=== PATIENT | female | born 1960 | race Caucasian/White ===

== ENCOUNTER 2017-10-28 06:33 | Day surgery (SDC) | payer OTHER ==
[~2017-10-28] VITALS: Ht 172.7 cm; Wt 152.9 kg
[~2017-10-28 06:33] MED LIST: ACETAM PO; ALBU90I INH; ALBU90OI; ALBU90OI INH; ALBU90OI61 INH; AMIT25; AMLO10 PO; AMOX1XR PO; ASPI325 PO; ASPI81EC; ATEN50; ATEN50 PO; ATOR10; ATOR20 PO; ATOR40TA PO; AZIT250 PO; AZIT500 PO; BUTONI; CAPT50; CARB200; CARI350; CIPR250 PO; CITA20; CLON.2 PO; CLONIDINE HCL0.1 MG PO; CRUTCH4 USE; CYCL10; CYCL10 PO; DIAZ10; DIAZ10 PO; DICY20; DIPH50; DOCU100 PO; DULO60 PO; ERGO400; ESOM20; ESTR1 PO; FISH1000 PO; FLUO20; FLUSAL2505; FLUSAL2505 IH; FLUT.05NI; FURO20 PO; FUROSEMIDE PO; Flax Seed Oil PO; Flonase 0.05% N16 GM; Flovent Diskus50 MCG; Furosemide20 MG PO; GUAPHELA PO; Guaifenesin Dm118 ML PO; HYDACE10B; HYDACE5; HYDACE5 PO; HYDCHL25 PO; HYDMOR4; HYDMOR4 PO; HYDMOR8; HYDMOR8 PO; Humalog100 UNIT/1 SC; IBUHYD; IBUHYD PO; IBUP800 PO; INSLE100IA; INSLI100I SC; INSULANI; INSULANI SC; INSULANPEN SC; Imitrex100 MG PO; Inderal80 MG PO; KETO10 PO; LACT10SY PO; LANS30EC; LEVSOD125 PO; LEVSOD150 PO; LEVSOD50; LEVSOD50 PO; LISI10; LISI20; LISI20 PO; LORATADINE PO; LOSA50 PO; LOVA20; LOVA40; LOVA40 PO; META800 PO; METF500; METF500 PO; METF500C; METF850 PO; METH10; METH10 PO; METH40 PO; MIRALAX; MONT10T; MULVITA; Micro-K10 MEQ PO; NAPR375 PO; NAPR550 PO; NARA2.5 PO; OMEP10ER; OMEP20ER PO; OMEP40CA12 PO; OXYACE10 PO; OXYACE5T PO; OXYACE7.5T PO; OXYC20ER; OXYCODONE PO; Omeprazole20 M1 PO; PARO20 PO; PARO30 PO; PERCOCET PO; PIOG15; POLY17UD; POTCHL10ER PO; PROBIOTIC1 EAC1 PO; PROM25; PROM25 PO; PROP120ER PO; PROP60; PROP80ER PO; RANI150 PO; SELENIUM PO; ST JOHNS WORT; SULTRIDS PO; SUMA25 PO; Solaraze100 GM TOP; TOPI100 PO; TRAZ100; TRAZ100 PO; TRAZ50; TRAZADONE 150MG; VENL75ER; VERA80; VITAMIN B; VITAMIN B-12 PO; VITAMIN D35000 UNIT PO; VITAMIN E; Ventolin5 MG/1 ML NEB; ZESTRIL40 MG PO; [UNRECOGNIZED DRUG - OTHER]; [UNRECOGNIZED DRUG - REMARK]
== END 2017-10-28 10:31 | disposition home or self-care (01) ==
LOC: ORSCMMR 06:33
PROVIDERS: Surgery
PROC: 0HBU0ZZ Excision of Left Breast, Open Approach (ICD-10-PCS; principal; 2017-10-28 08:15)
DX: N63.21 Unspecified lump in the left breast, upper outer quadrant (principal); N64.4 Mastodynia; I10 Essential (primary) hypertension; G47.33 Obstructive sleep apnea (adult) (pediatric); J45.909 Unspecified asthma, uncomplicated; E11.9 Type 2 diabetes mellitus without complications; E66.01 Morbid (severe) obesity due to excess calories; Z68.43 Body mass index [BMI] 50.0-59.9, adult; Z79.4 Long term (current) use of insulin; Z79.899 Other long term (current) drug therapy; Z79.82 Long term (current) use of aspirin; Z86.73 Personal history of transient ischemic attack (TIA), and cerebral infarction without residual deficits
CPT/HCPCS: 82947; 88304; J0690; J2250; J3010; J7120

== ENCOUNTER 2018-02-10 16:10 | Observation (INO) | payer OTHER ==
[~2018-02-10] VITALS: Ht 172.7 cm; Wt 151.4 kg
[2018-02-10] MEDS ORDERED: TRAM50 PO (16:32)
[2018-02-10] MEDS ORDERED: Hydrocodone-Ap1 EA23 PO (16:32)
[2018-02-10 17:28] LABS: BASOPHILS ABSOLUTE AUTO 0.01 K/mm3 (0.00-0.23); BASOPHILS PERCENT AUTO 0 % (0-2); EOSINOPHILS ABSOLUTE AUTO 0.13 K/mm3 (0.00-0.68); EOSINOPHILS PERCENT AUTO 2 % (0-6); Hematocrit 39.2 % (33.0-51.0); Hemoglobin 12.2 g/dL (11.5-16.0); IMMATURE GRAN ABSOLUTE AUTO 0.05 K/mm3 (0.00-0.10); IMMATURE GRAN PERCENT AUTO 1 % (0-1); LYMPHOCYTES ABSOLUTE AUTO 1.64 K/mm3 (0.84-5.20); LYMPHOCYTES PERCENT AUTO 23 % (21-46); MONOCYTES ABSOLUTE AUTO 0.41 K/mm3 (0.16-1.47); MONOCYTES PERCENT AUTO 6 % (4-13); Mean Corpuscular HGB 27.9 pg (26.0-34.0); Mean Corpuscular HGB Conc 31.1 g/dL (31.5-36.5); Mean Corpuscular Volume 90 fL (80-100); Mean Platelet Volume 11.3 fL (9.1-12.4); NEUTROPHILS ABSOLUTE AUTO 4.89 K/mm3 (1.96-9.15); NEUTROPHILS PERCENT AUTO 69 % (41-73); Platelet Count 202 K/mm3 (150-400); RDW Standard Deviation 46.1 fL (35.1-46.3); Red Blood Cell Count 4.37 M/mm3 (3.80-5.20); White Blood Cell Count 7.13 K/mm3 (4.00-11.30)
[2018-02-10 17:46] LABS: Alanine Aminotransfer (ALT/SGP 15 U/L (12-78); Albumin, Blood 3.6 g/dL (3.4-5.0); Albumin/Globulin Ratio 1.1 (0.8-1.8); Alk Phos 133 U/L (50-136); Anion Gap 6 mmol/L (6-16); Aspartate Aminotrans (AST/SGOT 13 U/L (12-37); Bilirubin, Total 0.3 mg/dL (0.1-1.0); Blood Urea Nitrogen 27 mg/dL (8-24); Bun/Creatinine Ratio 35.2 (12.0-20.0); CO2, Blood 26 mmol/L (21-32); Calcium, Blood 9.2 mg/dL (8.5-10.1); Chloride, Blood 109 mmol/L (98-108); Creatinine, Blood 0.77 mg/dL (0.40-1.00); Globulin, Blood 3.3 g/dL (2.2-4.0); Glomerular Filtration Rate >60 (60-); Glucose, Blood 234 mg/dL (70-99); Potassium, Blood 4.4 mmol/L (3.5-5.5); Sodium, Blood 141 mmol/L (136-145); Total Protein, Blood 6.9 g/dL (6.4-8.2)
[2018-02-11 04:30] LABS: BASOPHILS ABSOLUTE AUTO 0.02 K/mm3 (0.00-0.23); BASOPHILS PERCENT AUTO 0 % (0-2); EOSINOPHILS ABSOLUTE AUTO 0.16 K/mm3 (0.00-0.68); EOSINOPHILS PERCENT AUTO 2 % (0-6); Hematocrit 38.5 % (33.0-51.0); Hemoglobin 12.2 g/dL (11.5-16.0); IMMATURE GRAN ABSOLUTE AUTO 0.04 K/mm3 (0.00-0.10); IMMATURE GRAN PERCENT AUTO 1 % (0-1); LYMPHOCYTES ABSOLUTE AUTO 2.27 K/mm3 (0.84-5.20); LYMPHOCYTES PERCENT AUTO 30 % (21-46); MONOCYTES ABSOLUTE AUTO 0.47 K/mm3 (0.16-1.47); MONOCYTES PERCENT AUTO 6 % (4-13); Mean Corpuscular HGB 28.3 pg (26.0-34.0); Mean Corpuscular HGB Conc 31.7 g/dL (31.5-36.5); Mean Corpuscular Volume 89 fL (80-100); Mean Platelet Volume 10.7 fL (9.1-12.4); NEUTROPHILS ABSOLUTE AUTO 4.58 K/mm3 (1.96-9.15); NEUTROPHILS PERCENT AUTO 61 % (41-73); Platelet Count 195 K/mm3 (150-400); RDW Standard Deviation 45.7 fL (35.1-46.3); Red Blood Cell Count 4.31 M/mm3 (3.80-5.20); White Blood Cell Count 7.54 K/mm3 (4.00-11.30)
[2018-02-11 04:45] LABS: Anion Gap 7 mmol/L (6-16); Blood Urea Nitrogen 24 mg/dL (8-24); Bun/Creatinine Ratio 31.4 (12.0-20.0); CO2, Blood 25 mmol/L (21-32); Calcium, Blood 9.1 mg/dL (8.5-10.1); Chloride, Blood 113 mmol/L (98-108); Creatinine, Blood 0.76 mg/dL (0.40-1.00); Glomerular Filtration Rate >60 (60-); Glucose, Blood 98 mg/dL (70-99); Potassium, Blood 3.9 mmol/L (3.5-5.5); Sodium, Blood 145 mmol/L (136-145)
[2018-02-12] MEDS ORDERED: CULTURELLE1 EACH PO (11:49)
[2018-02-12] MEDS ORDERED: FLONASE SENSIM9.9 ML (11:49)
[2018-02-12] MEDS ORDERED: ALBU90OI INH (11:50)
[2018-02-12] MEDS ORDERED: Augmentin 875-1 EACH PO (11:52)
== END 2018-02-12 13:23 | disposition home or self-care (01) ==
LOC: ER 16:10 → MEDS 16:11 → ENPENDDIS 02-12 09:24 → MEDS 02-12 13:23
PROVIDERS: Nurse Practitioner Acute Care; Physician Assistant
DX: S61.451A Open bite of right hand, initial encounter (principal); L03.113 Cellulitis of right upper limb; I10 Essential (primary) hypertension; E03.9 Hypothyroidism, unspecified; E11.9 Type 2 diabetes mellitus without complications; G47.33 Obstructive sleep apnea (adult) (pediatric); M19.90 Unspecified osteoarthritis, unspecified site; J45.30 Mild persistent asthma, uncomplicated; E78.00 Pure hypercholesterolemia, unspecified; K21.9 Gastro-esophageal reflux disease without esophagitis; Z79.01 Long term (current) use of anticoagulants; Z79.2 Long term (current) use of antibiotics; Z79.899 Other long term (current) drug therapy; Z88.8 Allergy status to other drugs, medicaments and biological substances; Z91.048 Other nonmedicinal substance allergy status; Z88.5 Allergy status to narcotic agent; W55.01XA Bitten by cat, initial encounter
CPT/HCPCS: 36415; 73201; 80048; 80053; 82947; 85025; 85651; 94760; 96361; 96365; 96366; 96367; 96368; 96372; 96375; 96376; 99285; G0378; J0295; J0696; J1650; J1815; J1885; J3370; J7030; J7050; Q9967

== ENCOUNTER → 2019-02-03 | Outpatient (CLI) | payer OTHER ==
[~2019-02-03] MED LIST changes: +Augmentin 875-1 EACH PO; +CULTURELLE1 EACH PO; +FLONASE SENSIM9.9 ML; +Hydrocodone-Ap1 EA23 PO; +TRAM50 PO
== END ==
LOC: LAB SHORT 16:25 → LAB 16:25
DX: L08.9 Local infection of the skin and subcutaneous tissue, unspecified (principal); L82.1 Other seborrheic keratosis; D22.5 Melanocytic nevi of trunk; L97.829 Non-pressure chronic ulcer of other part of left lower leg with unspecified severity
CPT/HCPCS: 87070; 87205

== ENCOUNTER → 2019-03-02 | Outpatient (CLI) | payer OTHER | END | disposition home or self-care (01) | LOC: LAB 17:50 → LAB SHORT 17:50 | DX: N39.0 Urinary tract infection, site not specified (principal) | CPT/HCPCS: 87077; 87086; 87186 ==

== ENCOUNTER 2019-03-12 17:40 | Emergency (ER) | payer OTHER ==
[~2019-03-12] VITALS: Ht 172.7 cm; Wt 154.2 kg
[~2019-03-12 17:40] MED LIST changes: -FLONASE SENSIM9.9 ML; +LEVSOD100 PO; -LEVSOD50 PO
[2019-03-12 18:50] LABS: Source, Urine Clean Catch
[2019-03-12 18:53] LABS: Appearance, Urine Clear (Clear); Blood, Urine 1+ (Neg); Color, Urine Amber (P-Yellow); Glucose Qualitative, Urine 3+ (Neg); Ketones, Urine 2+ (Neg); Leukocyte Esterase, Urine 3+ (Neg); Nitrite, Urine Neg (Neg); Protein, Urine 2+ (Neg); Specific Gravity, Urine 1.015 (1.003-1.022); Urobilinogen, Urine 1+ (Normal)
[2019-03-12 18:56] LABS: Bilirubin, Urine 1+ (Neg)
[2019-03-12 18:59] LABS: BASOPHILS ABSOLUTE AUTO 0.04 K/mm3 (0.00-0.23); BASOPHILS PERCENT AUTO 0 % (0-2); EOSINOPHILS ABSOLUTE AUTO 0.01 K/mm3 (0.00-0.68); EOSINOPHILS PERCENT AUTO 0 % (0-6); Hematocrit 41.3 % (33.0-51.0); IMMATURE GRAN ABSOLUTE AUTO 0.21 K/mm3 (0.00-0.10); IMMATURE GRAN PERCENT AUTO 1 % (0-1); LYMPHOCYTES ABSOLUTE AUTO 0.92 K/mm3 (0.84-5.20); LYMPHOCYTES PERCENT AUTO 5 % (21-46); MONOCYTES ABSOLUTE AUTO 0.58 K/mm3 (0.16-1.47); MONOCYTES PERCENT AUTO 3 % (4-13); Mean Corpuscular HGB 27.5 pg (26.0-34.0); Mean Corpuscular HGB Conc 31.5 g/dL (31.5-36.5); Mean Corpuscular Volume 88 fL (80-100); Mean Platelet Volume 11.2 fL (9.1-12.4); NEUTROPHILS ABSOLUTE AUTO 17.36 K/mm3 (1.96-9.15); NEUTROPHILS PERCENT AUTO 91 % (41-73); Platelet Count 299 K/mm3 (150-400); RDW Coefficient Variation 13.4 % (11.7-14.2); RDW Standard Deviation 43.9 fL (35.1-46.3); Red Blood Cell Count 4.72 M/mm3 (3.80-5.20); White Blood Cell Count 19.12 K/mm3 (4.00-11.30)
[2019-03-12 19:04] LABS: Bacteria Many /hpf; Red Blood Cells, Urine 0-2 /hpf (0-2); Squamous Epithelial Cells Many /hpf (Few); White Blood Cells, Urine 50-100 /hpf (0-5)
[2019-03-12 19:05] LABS: Hyaline Casts 0-2 /lpf (0-2)
[2019-03-12 19:23] LABS: Albumin, Blood 3.2 g/dL (3.4-5.0); Albumin/Globulin Ratio 0.6 (0.8-1.8); Bilirubin, Total 0.7 mg/dL (0.1-1.0); Bun/Creatinine Ratio 14.8 (12.0-20.0); Calcium, Blood 10.1 mg/dL (8.5-10.1); Creatinine, Blood 1.28 mg/dL (0.40-1.00); Potassium, Blood 3.5 mmol/L (3.5-5.5); Total Protein, Blood 8.2 g/dL (6.4-8.2)
[2019-03-12] MEDS ORDERED: CYCL10 PO (20:19)
[2019-03-12] MEDS ORDERED: CEFU500T30 PO (20:46)
== END 2019-03-12 21:12 | disposition home or self-care (01) ==
LOC: ER 17:40
PROVIDERS: Physician Assistant
DX: N20.0 Calculus of kidney (principal); Z88.8 Allergy status to other drugs, medicaments and biological substances; Z91.048 Other nonmedicinal substance allergy status; Z88.5 Allergy status to narcotic agent; Z79.899 Other long term (current) drug therapy; Z79.891 Long term (current) use of opiate analgesic; Z79.4 Long term (current) use of insulin; E11.9 Type 2 diabetes mellitus without complications; E03.9 Hypothyroidism, unspecified; K21.9 Gastro-esophageal reflux disease without esophagitis; E78.00 Pure hypercholesterolemia, unspecified; G43.909 Migraine, unspecified, not intractable, without status migrainosus; Z87.891 Personal history of nicotine dependence
CPT/HCPCS: 36415; 74176; 80053; 81001; 85025; 87077; 87086; 87186; 96361; 96365; 96375; 99284-25; J0696; J1885; J7030

== ENCOUNTER → 2019-03-31 | Outpatient (CLI) | payer OTHER ==
[~2019-03-31] MED LIST changes: +CEFU500T30 PO
== END | disposition home or self-care (01) ==
LOC: LAB UCHC 15:00 → LAB SHORT 15:00
DX: N39.0 Urinary tract infection, site not specified (principal)
CPT/HCPCS: 87077; 87086; 87186

== ENCOUNTER → 2019-06-21 | Outpatient (CLI) | payer OTHER ==
[2019-06-21 13:05] LABS: Source, Urine Clean Catch
[2019-06-21 13:40] LABS: Bilirubin, Urine Neg (Neg); Blood, Urine Neg (Neg); Glucose Qualitative, Urine 4+ (Neg); Ketones, Urine 1+ (Neg); Leukocyte Esterase, Urine Neg (Neg); Nitrite, Urine Neg (Neg); Protein, Urine Neg (Neg); Urobilinogen, Urine NORM (Normal)
[2019-06-21 14:00] LABS: Appearance, Urine Clear (Clear); Color, Urine Yellow (P-Yellow)
== END ==
LOC: LAB SHORT 10:15 → LAB 10:15
PROVIDERS: Nurse Practitioner Family
DX: N20.0 Calculus of kidney (principal)
CPT/HCPCS: 81003

== ENCOUNTER → 2019-11-29 | Outpatient (CLI) | payer OTHER ==
[2019-11-29 19:42] LABS: Bilirubin, Urine Neg (Neg); Blood, Urine Neg (Neg); Glucose Qualitative, Urine 3+ (Neg); Ketones, Urine Neg (Neg); Leukocyte Esterase, Urine Neg (Neg); Nitrite, Urine Neg (Neg); Protein, Urine Neg (Neg); Urobilinogen, Urine NORM (Normal)
[2019-11-29 20:02] LABS: Appearance, Urine Clear (Clear); Color, Urine Pale Yellow (P-Yellow)
== END | disposition home or self-care (01) ==
LOC: LAB 19:02 → LAB SHORT 19:02 → LAB FUT 11-29 17:25
PROVIDERS: Family Medicine
DX: Z09 Encounter for follow-up examination after completed treatment for conditions other than malignant neoplasm (principal); Z87.442 Personal history of urinary calculi
CPT/HCPCS: 81003

== ENCOUNTER → 2020-01-11 | Outpatient (CLI) | payer OTHER | END | disposition home or self-care (01) | LOC: LAB 17:50 → LAB SHORT 17:50 | DX: R30.9 Painful micturition, unspecified (principal) | CPT/HCPCS: 87077; 87086; 87186 ==

== ENCOUNTER 2022-01-11 11:58 | Inpatient (IN) | payer OTHER ==
[~2022-01-11] VITALS: Ht 172.7 cm; Wt 122.0 kg
[~2022-01-11 11:58] MED LIST changes: +AMOCLA875 PO; +CEPH500 PO; +FENOFIBRATE145 MG PO; +GABA100; +MELO7.5; +Magnesium Citr296 ML PO; +ONDA4ODT MM; +OXYC5 PO
[2022-01-11 12:59] LABS: Base Excess Venous -27.5 mmol/L; Bicarbonate Venous 7.5 mmol/L (24.0-30.0); PCO2 Venous 31.8 mmHg (38-42); PO2 Venous 69.1 mmHg (38-42); pH Blood Venous 6.87 (7.34-7.37)
[2022-01-11 13:00] LABS: Source, Urine Foley catheter
[2022-01-11 13:00] LABS: Hemoglobin 16.8 g/dL (11.5-16.0); Mean Corpuscular HGB 30.2 pg (26.0-34.0); Mean Corpuscular HGB Conc 29.5 g/dL (31.5-36.5); Mean Corpuscular Volume 103 fL (80-100); Mean Platelet Volume 12.9 fL (9.1-12.4); Platelet Count 172 K/mm3 (150-400); RDW Coefficient Variation 14.4 % (11.7-14.2); RDW Standard Deviation 55.3 fL (35.1-46.3); Red Blood Cell Count 5.56 M/mm3 (3.80-5.20); White Blood Cell Count 18.88 K/mm3 (4.00-11.30)
[2022-01-11 13:03] LABS: Appearance, Urine Clear (Clear); Bilirubin, Urine Neg (Neg); Blood, Urine 4+ (Neg); Color, Urine Yellow (P-Yellow); Glucose Qualitative, Urine 4+ (Neg); Ketones, Urine 4+ (Neg); Leukocyte Esterase, Urine Neg (Neg); Nitrite, Urine Neg (Neg); Protein, Urine 2+ (Neg); Urobilinogen, Urine NORM (Normal)
[2022-01-11 13:20] LABS: CPK Creatine Kinase 125 U/L (26-193); Ethanol (Alcohol), Blood, Med <3 mg/dL
[2022-01-11 13:22] LABS: Bacteria Rare /hpf; Red Blood Cells, Urine 0-2 /hpf (0-2); Squamous Epithelial Cells Rare /hpf (Few); White Blood Cells, Urine 0-2 /hpf (0-5)
[2022-01-11 13:23] LABS: U Amphetamine Screen Not Detected; U Barbituate Screen Not Detected; U Benzodiazapine Screen Not Detected; U Buprenorphine Screen Not Detected; U Cannabinoids Screen Not Detected; U Cocaine Screen Not Detected; U Methadone Screen Not Detected; U Methamphetamine Screen Not Detected; U Opiates Screen Not Detected; U Oxycodone Screen Not Detected; U Phencyclidine Screen Not Detected; U Propoxyphene Screen Not Detected
[2022-01-11 13:27] LABS: BAND PERCENT MAN 1 % (0-8); BASOPHILS PERCENT MAN 0 % (0-2); EOSINOPHILS PERCENT MAN 0 % (0-6); LYMPHOCYTES ABSOLUTE MAN 0.75 K/mm3 (0.84-5.20); LYMPHOCYTES PERCENT MAN 4 % (21-46); METAMYELOCYTE ABSOLUTE MAN 0.75 K/mm3 (0.00-0.00); METAMYELOCYTE PERCENT MAN 4 % (0-0); MONOCYTES ABSOLUTE MAN 0.94 K/mm3 (0.16-1.47); MONOCYTES PERCENT MAN 5 % (4-13); MYELOCYTE ABSOLUTE MAN 0.56 K/mm3 (0.00-0.00); MYELOCYTE PERCENT MAN 3 % (0-0); NEUTROPHILS ABSOLUTE MAN 15.85 K/mm3 (1.96-9.15); SEG NEUTROPHILS PERCENT MAN 83 % (41-73); TOTAL CELLS COUNTED 100
[2022-01-11 13:29] LABS: Alanine Aminotransfer (ALT/SGP 27 U/L (12-78); Albumin/Globulin Ratio 1.1 (0.8-1.8); Alk Phos 151 U/L (50-136); Anion Gap 23 mmol/L (6-16); Aspartate Aminotrans (AST/SGOT 23 U/L (12-37); Bilirubin, Total 0.7 mg/dL (0.1-1.0); Blood Urea Nitrogen 40 mg/dL (8-24); Bun/Creatinine Ratio 16.7 (12.0-20.0); CO2, Blood 7 mmol/L (21-32); Calcium, Blood 9.7 mg/dL (8.5-10.1); Chloride, Blood 93 mmol/L (98-108); Creatinine, Blood 2.39 mg/dL (0.40-1.00); Globulin, Blood 3.7 g/dL (2.2-4.0); Glomerular Filtration Rate 20 (60-); Glucose, Blood 1297 mg/dL (70-99); Potassium, Blood 4.6 mmol/L (3.5-5.5); Sodium, Blood 123 mmol/L (136-145); Total Protein, Blood 7.7 g/dL (6.4-8.2)
[2022-01-11 13:46] LABS: Influenza A, PCR NEGATIVE (NEGATIVE); Influenza B, PCR NEGATIVE (NEGATIVE); Resp Syncytial Virus, PCR NEGATIVE (NEGATIVE); SARS-Cov-2 (COVID-19) PCR, MMC NEGATIVE (NEGATIVE)
[2022-01-11 13:53] LABS: International Normalized Ratio 1.09; Prothrombin Time Results 11.4 Sec (9.7-11.5)
[2022-01-11 15:48] LABS: Glucose, Blood 1141 mg/dL (70-99)
[2022-01-11 16:32] LABS: Glucose, Blood 1017 mg/dL (70-99)
[2022-01-11 17:14] LABS: Prolactin 13.4 ng/mL (2.74-19.64)
[2022-01-11 17:17] LABS: Thyroid Stimulating Hormone 0.253 uIU/mL (0.360-4.800)
[2022-01-11 17:27] LABS: Bun/Creatinine Ratio 19.5 (12.0-20.0); Calcium, Blood 8.6 mg/dL (8.5-10.1); Potassium, Blood 3.4 mmol/L (3.5-5.5)
[2022-01-11 18:32] LABS: Glucose, Blood 661 mg/dL (70-99)
--- NOTE | 2022-01-11 18:46 | NUR ---
PATIETN ORIENTED TO SELF, AMS, LETHARGIC, CONFUSED AT TIMES. LS DIMINISHED, SLOW SHALLOW RESPIRATIONS, SATS 100%. AFIB 100-140S, SBP 100-160. NO N/V OR DIARREHA SINCE ON THE FLOOR. TEMP JOHNSON TO GRAVITY, COLOR YELLOW TO CALE, TEMP 94.8, BEAR HUGGER ON. SKIN LEFT HIP REDDEND AREA BLANCHES, BRUNILDA AREA AND COCCYX ESCORIATED. INSULIN AT 6U/HR, LAST BS 661
--- NOTE | 2022-01-11 19:30 | NUR ---
ASSUMPTION OF CARE PT ON ROOM AIR, LUNGS CLEAR W/SATS 99-100%. INSULIN GTT INFUSING AT 6U/HR TO LEFT FOREARM IV. PT ON TMR TEACHER IN AFIB RATE 100-120'S. DRY COUGH. LETHARGIC BUT ORIENTED TO NAME-AROUSES TO VERBAL STIMULI. TEMP JOHNSON 95.1, MANDI LEMONS ON PT. BP WNL. JOHNSON CATH INTACT PATENT AND DRAINING YELLOW URINE BELOW THE LEVEL OF THE BLADDER. NO S/S OF ACUTE DISTRESS NOTED AT TIME OF ASSUMPTION OF CARE.
--- NOTE | 2022-01-11 20:01 | NUR ---
PT BLOOD GLUCOSE IS TOO HIGH FOR BEDSIDE POC. SHE IS A DIFFICULT BLOOD DRAW, WAITING ON RESULTS FROM RECENT DRAW TO ADJUST INSULIN/FLUIDS.
[2022-01-11 20:04] LABS: Glucose, Blood 544 mg/dL (70-99)
[2022-01-11 20:10] LABS: Bun/Creatinine Ratio 19.6 (12.0-20.0); Calcium, Blood 9.6 mg/dL (8.5-10.1); Creatinine, Blood 1.94 mg/dL (0.40-1.00); Potassium, Blood 3.6 mmol/L (3.5-5.5)
--- NOTE | 2022-01-11 20:53 | NUR ---
PT BLOOD GLUCOSE 544 AT 1936 AND 454 AT 2046. DISCUSSED W/CHARGE NURSE YANETH MATHIS, INSULIN DRIP DECREASED FROM 6U/HR TO 5U/HR.
[2022-01-11] MEDS ORDERED: OMEP20ER PO (21:14)
[2022-01-11] MEDS ORDERED: MELO7.5 PO (21:14)
[2022-01-11] MEDS ORDERED: GABA400 PO (21:15)
[2022-01-11] MEDS ORDERED: TOLT4 PO (21:15)
--- NOTE | 2022-01-11 22:00 | NUR ---
PT NORMOTHERMIC. MANDI LEMONS ON STAND BY.
[2022-01-12 00:09] LABS: Bun/Creatinine Ratio 23.4 (12.0-20.0); Calcium, Blood 9.2 mg/dL (8.5-10.1); Creatinine, Blood 1.58 mg/dL (0.40-1.00); Potassium, Blood 3.4 mmol/L (3.5-5.5)
[2022-01-12 03:48] LABS: BASOPHILS ABSOLUTE AUTO 0.03 K/mm3 (0.00-0.23); BASOPHILS PERCENT AUTO 0 % (0-2); EOSINOPHILS PERCENT AUTO 0 % (0-6); Hematocrit 42.6 % (33.0-51.0); Hemoglobin 14.7 g/dL (11.5-16.0); IMMATURE GRAN ABSOLUTE AUTO 0.44 K/mm3 (0.00-0.10); IMMATURE GRAN PERCENT AUTO 3 % (0-1); LYMPHOCYTES ABSOLUTE AUTO 0.54 K/mm3 (0.84-5.20); LYMPHOCYTES PERCENT AUTO 4 % (21-46); MONOCYTES ABSOLUTE AUTO 1.25 K/mm3 (0.16-1.47); MONOCYTES PERCENT AUTO 9 % (4-13); Mean Corpuscular HGB 29.8 pg (26.0-34.0); Mean Corpuscular HGB Conc 34.5 g/dL (31.5-36.5); Mean Corpuscular Volume 86 fL (80-100); Mean Platelet Volume 12.2 fL (9.1-12.4); NEUTROPHILS PERCENT AUTO 84 % (41-73); Platelet Count 130 K/mm3 (150-400); RDW Coefficient Variation 14.3 % (11.7-14.2); RDW Standard Deviation 44.9 fL (35.1-46.3); Red Blood Cell Count 4.93 M/mm3 (3.80-5.20); White Blood Cell Count 14.36 K/mm3 (4.00-11.30)
[2022-01-12 03:58] LABS: Albumin, Blood 3.1 g/dL (3.4-5.0); Bilirubin, Total 0.4 mg/dL (0.1-1.0); Bun/Creatinine Ratio 26.5 (12.0-20.0); Calcium, Blood 9.4 mg/dL (8.5-10.1); Creatinine, Blood 1.36 mg/dL (0.40-1.00); Magnesium, Blood 1.8 mg/dL (1.6-2.4); Potassium, Blood 3.2 mmol/L (3.5-5.5); Total Protein, Blood 6.1 g/dL (6.4-8.2)
[2022-01-12 08:35] LABS: Bun/Creatinine Ratio 32.4 (12.0-20.0); Calcium, Blood 9.6 mg/dL (8.5-10.1); Creatinine, Blood 1.08 mg/dL (0.40-1.00); Potassium, Blood 3.1 mmol/L (3.5-5.5)
[2022-01-12 08:43] LABS: Free Thyroxine 1.28 ng/dL (0.70-1.60); Triiodothyronine, Free 1.39 pg/mL (2.18-3.98)
--- NOTE | 2022-01-12 10:00 | NUR ---
Patient sitting up in bed and eating breakfast. Will continue Regular insulin gtt at 5 units/hr for 1 hour. D5 1/2 is off now, CBG 199. Will give bath and get up in chair. Tolerated am meds.
--- NOTE | 2022-01-12 13:40 | NUR ---
Patient remains in chairand tolerating well. She remains on RA and sats >90%. She has been drinking water frequently and tolerating PO meds well. Awaiting PCU bed. Insulin gtt remains off. Wade patent and tellow urine of adequate amounts. She remains able to communicate her needs. She had headache and medicated pe DEC.
--- NOTE | 2022-01-12 15:59 | NUR ---
Report given to Jan DO. Patient transferred via recliner, all belongings transferred with patient. I&O's done. Sheri patent on transfer
[2022-01-12 16:14] LABS: Anion Gap 10 mmol/L (6-16); Blood Urea Nitrogen 30 mg/dL (8-24); Bun/Creatinine Ratio 35.5 (12.0-20.0); CO2, Blood 17 mmol/L (21-32); Calcium, Blood 9.5 mg/dL (8.5-10.1); Chloride, Blood 115 mmol/L (98-108); Creatinine, Blood 0.85 mg/dL (0.40-1.00); Glomerular Filtration Rate >60 (60-); Glucose, Blood 298 mg/dL (70-99); Potassium, Blood 4.1 mmol/L (3.5-5.5); Sodium, Blood 142 mmol/L (136-145)
--- NOTE | 2022-01-12 17:29 | NUR ---
END OF SHIFT: BEV HAS INCREASED MENTATION FROM THIS AM WHERE SHE WAS IN THE ICU. A&O X2-3, FORGETFUL AND SLOW TO RESPOND AT TIMES, POOR HISTORIAN. PATIENT IS ON RA SPO2 >97%. PULSE HAS BEEN 110-120'S ST WITH PAC'S. TELE IN PLACE. PATIENT IS MOST LIKELY INCONTINENT OF BOWEL AT THIS TIME, 2 ASSIST TO BSC RECOMMENDED DUE TO WEAKNESS. PATIENT IS AC HS CBG'S AND LAST CBG WAS 236. SS FOR HUMILIN HAS INCREASED RECENTLY, ADITIONALLY LR AT 100 WAS ORDERED BY PROVIDER, PATIENT HAS BEEN ABLE TO FEED, SELF, HAS JUST BEEN VERY MINIMALLY NAUSEATED AT TIMES. JOHNSON IN PLACE AT THIS TIME, CHEMICAL PROPHALAXIS FOR DVT PREVENTION, WILL CONTINUE TO MONITOR PATIENT. PATIENT OR THIS WRITTER HAS CONCERNS AT THIS TIME.
--- NOTE | 2022-01-13 01:00 | NUR ---
PHYSICIAN NOTIFIED PT REPORTS NAUSEA. PHYSICIAN NOTIFIED. ORDERS FOR REGLAN, SEE EMAR.
[2022-01-13 02:53] LABS: Adenovirus F 40/41 Not Detected (NOT DETECT); Astrovirus Not Detected (NOT DETECT); Campylobacter Sp Not Detected (NOT DETECT); Cryptosporidium Not Detected (NOT DETECT); Cyclospora Cayetanensis Not Detected (NOT DETECT); E. Coli O157 Not Detected (NOT DETECT); Entamoeba Histolytica Not Detected (NOT DETECT); Enteroaggregative E. coli-EAEC Not Detected (NOT DETECT); Enteropathogenic E. coli-EPEC Not Detected (NOT DETECT); Enterotoxigenic E. coli-ETEC Not Detected (NOT DETECT); Giardia Lamblia Not Detected (NOT DETECT); Norovirus GI/GII Not Detected (NOT DETECT); Plesiomonas Shigelloides Not Detected (NOT DETECT); Rotavirus A Not Detected (NOT DETECT); Salmonella Sp Not Detected (NOT DETECT); Sapovirus Not Detected (NOT DETECT); Shiga Toxin-prod E. coli-STEC Not Detected (NOT DETECT); Shigella/Enteroin E. coli-EIEC Not Detected (NOT DETECT); Vibrio Cholerae Not Detected (NOT DETECT); Vibrio Sp Not Detected (NOT DETECT); Yersinia Enterocolitica Not Detected (NOT DETECT)
--- NOTE | 2022-01-13 05:27 | NUR ---
SHIFT SUMMARY VITAL SIGNS STABLE; BP 145/63 WITH MAP >65, HEART RATE BETWEEN 100-120'S, SPO2 MAINTAINED >95% ON ROOM AIR. NO CHEST PAIN OR CHEST PRESSURE REPORTED. PATIENT IS ALERT AND ORIENTED X4. PATIENT RESPONDS APPROPRIATELY HOWEVER RESPONSES ARE SLIGHLTY SLOWED OR DELAYED. PATIENT FOLLOWS COMMANDS APPROPRIATELY. PT COMPLAINS OF NAUSEA, MEDICATED PER EMAR. PT COMPLAINS OF MIGRAINE, MEDICATION GIVEN PER EMAR. STOOL SPECIMEN COLLECTED AND SENT TO LAB. PATIENT IS ABLE TO TURN AND REPOSITION INDEPENDENTLY. PATIENT HAS JOHNSON TO GRAVITY DRAIN. BED ALARM ON AND CALL LIGHT WITHIN REACH. WILL CONTINUE TO MONITOR UNTIL NEXT SHIFT NURSE ARRIVES.
[2022-01-13 08:31] LABS: BASOPHILS ABSOLUTE AUTO 0.01 K/mm3 (0.00-0.23); BASOPHILS PERCENT AUTO 0 % (0-2); EOSINOPHILS PERCENT AUTO 0 % (0-6); Hematocrit 37.2 % (33.0-51.0); Hemoglobin 12.8 g/dL (11.5-16.0); IMMATURE GRAN ABSOLUTE AUTO 0.07 K/mm3 (0.00-0.10); IMMATURE GRAN PERCENT AUTO 1 % (0-1); LYMPHOCYTES ABSOLUTE AUTO 1.83 K/mm3 (0.84-5.20); LYMPHOCYTES PERCENT AUTO 20 % (21-46); MONOCYTES ABSOLUTE AUTO 0.62 K/mm3 (0.16-1.47); MONOCYTES PERCENT AUTO 7 % (4-13); Mean Corpuscular HGB 30.2 pg (26.0-34.0); Mean Corpuscular HGB Conc 34.4 g/dL (31.5-36.5); Mean Corpuscular Volume 88 fL (80-100); Mean Platelet Volume 12.3 fL (9.1-12.4); NEUTROPHILS ABSOLUTE AUTO 6.72 K/mm3 (1.96-9.15); NEUTROPHILS PERCENT AUTO 73 % (41-73); Platelet Count 98 K/mm3 (150-400); RDW Coefficient Variation 15.3 % (11.7-14.2); RDW Standard Deviation 48.8 fL (35.1-46.3); Red Blood Cell Count 4.24 M/mm3 (3.80-5.20); White Blood Cell Count 9.25 K/mm3 (4.00-11.30)
[2022-01-13 08:32] LABS: Albumin, Blood 2.7 g/dL (3.4-5.0); Anion Gap 12 mmol/L (6-16); Blood Urea Nitrogen 16 mg/dL (8-24); Bun/Creatinine Ratio 19.8 (12.0-20.0); CO2, Blood 21 mmol/L (21-32); Calcium, Blood 9.6 mg/dL (8.5-10.1); Chloride, Blood 112 mmol/L (98-108); Creatinine, Blood 0.81 mg/dL (0.40-1.00); Glomerular Filtration Rate >60 (60-); Glucose, Blood 235 mg/dL (70-99); Phosphorus, Blood 1.1 mg/dL (2.5-4.9); Potassium, Blood 3.1 mmol/L (3.5-5.5); Sodium, Blood 145 mmol/L (136-145)
--- NOTE | 2022-01-13 18:13 | NUR ---
END OF SHIFT SUMMARY: PATIENT IS IMPROVING, NAUSEA HAS BEEN CONTROLLED WITH REGLAN VS ZOFRAN, PATIENT TOLERATING SMALLER PORTION MEALS THAT ARE SOFTER, PATIENT DID EXTREMELY BETTER TODAY WITH PT MOVING AND WAS IN THE CHAIR MOST OF THE EVENING AND AFTERNOON, PATIENT DID HAVE TO HAVE PAIN MEDICATION TODAY FOR HER BACK PAIN. FINSHED INFUSING THE SECOND BAG OF LR. PATIENT DENIES SOB OR CHEST PAIN/PRESSURE. HAS BEEN ON RA, PATIENT DOES NOT HAVE ANY CONCERNS AT THIS TIME. WILL CONTINUE TO MONITOR.
[2022-01-14 05:17] LABS: BASOPHILS ABSOLUTE AUTO 0.02 K/mm3 (0.00-0.23); BASOPHILS PERCENT AUTO 0 % (0-2); EOSINOPHILS ABSOLUTE AUTO 0.04 K/mm3 (0.00-0.68); EOSINOPHILS PERCENT AUTO 1 % (0-6); Hematocrit 37.1 % (33.0-51.0); Hemoglobin 12.8 g/dL (11.5-16.0); IMMATURE GRAN ABSOLUTE AUTO 0.06 K/mm3 (0.00-0.10); IMMATURE GRAN PERCENT AUTO 1 % (0-1); LYMPHOCYTES ABSOLUTE AUTO 2.27 K/mm3 (0.84-5.20); LYMPHOCYTES PERCENT AUTO 27 % (21-46); MONOCYTES ABSOLUTE AUTO 0.65 K/mm3 (0.16-1.47); MONOCYTES PERCENT AUTO 8 % (4-13); Mean Corpuscular HGB 29.9 pg (26.0-34.0); Mean Corpuscular HGB Conc 34.5 g/dL (31.5-36.5); Mean Corpuscular Volume 87 fL (80-100); Mean Platelet Volume 12.2 fL (9.1-12.4); NEUTROPHILS ABSOLUTE AUTO 5.38 K/mm3 (1.96-9.15); NEUTROPHILS PERCENT AUTO 64 % (41-73); Platelet Count 92 K/mm3 (150-400); RDW Coefficient Variation 15.4 % (11.7-14.2); RDW Standard Deviation 48.4 fL (35.1-46.3); Red Blood Cell Count 4.28 M/mm3 (3.80-5.20); White Blood Cell Count 8.42 K/mm3 (4.00-11.30)
[2022-01-14 05:41] LABS: Albumin, Blood 2.7 g/dL (3.4-5.0); Anion Gap 7 mmol/L (6-16); Blood Urea Nitrogen 13 mg/dL (8-24); Bun/Creatinine Ratio 17.9 (12.0-20.0); CO2, Blood 29 mmol/L (21-32); Calcium, Blood 9.7 mg/dL (8.5-10.1); Chloride, Blood 108 mmol/L (98-108); Creatinine, Blood 0.73 mg/dL (0.40-1.00); Glomerular Filtration Rate >60 (60-); Glucose, Blood 196 mg/dL (70-99); Phosphorus, Blood 1.6 mg/dL (2.5-4.9); Potassium, Blood 2.8 mmol/L (3.5-5.5); Sodium, Blood 144 mmol/L (136-145)
--- NOTE | 2022-01-14 06:01 | NUR ---
UPDATE PHYSICIAN NOTIFIED OF PT'S LOW K+. ORDERS FOR ONE TIME DOSE OF 40 MEQ KCL.
--- NOTE | 2022-01-14 06:08 | NUR ---
SHIFT SUMMARY PT ALERT AND ORIENTED X 4. HR STABLE. BP STABLE. OXYGEN SATURATION MAINTAINED ABOVE 92% ON RA. PT SBA TO COMMODE USING WALKER. NO CP OR PRESSURE. PT ABLE TO TURN SELF IN BED AND ASSIST WITH BOOSTS IN BED. PT REPORTS PAIN ONCE IN ABD, MEDICATED. SEE EMAR. PHYSICIAN NOTIFIED OF LOW K+. SEE EMAR FOR ORDERS. BED ALARM IN PLACE D/T FALL HX. CALL LIGHT WITHIN REACH. WILL CONT TO MONITOR UNTIL REPORT GIVEN TO DAYSHIFT RN.
[2022-01-14 09:05] LABS: Albumin, Blood 2.8 g/dL (3.4-5.0); Anion Gap 8 mmol/L (6-16); Blood Urea Nitrogen 12 mg/dL (8-24); Bun/Creatinine Ratio 18.3 (12.0-20.0); CO2, Blood 26 mmol/L (21-32); Calcium, Blood 9.8 mg/dL (8.5-10.1); Chloride, Blood 108 mmol/L (98-108); Creatinine, Blood 0.66 mg/dL (0.40-1.00); Glomerular Filtration Rate >60 (60-); Glucose, Blood 224 mg/dL (70-99); Phosphorus, Blood 1.6 mg/dL (2.5-4.9); Potassium, Blood 3.5 mmol/L (3.5-5.5); Sodium, Blood 142 mmol/L (136-145)
[2022-01-14 09:30] LABS: Glucose, Blood 250 mg/dL (70-99)
[2022-01-14] MEDS ORDERED: K-Dur20 MEQ PO (13:39)
[2022-01-14] MEDS ORDERED: TOPI100 PO ×2 (13:41→13:43)
[2022-01-14] MEDS ORDERED: DULO60 PO (13:42)
[2022-01-14] MEDS ORDERED: Inderal80 MG PO (13:42)
--- NOTE | 2022-01-14 14:18 | NUR ---
DISCHARGE SUMMARY: PT HAS BEEN CLEARED FOR DISCHARGE. IV ACCESS DC'd WNL. PT PROVIDED WITH DC PAPERWORK AND INSTRUCTIONS, ALL QUESTIONS HAVE BEEN ANSWERED. PT STANDS AND AMBULATES INDEPENDENTLY TO W/C, IS ESCORTED OUTSIDE TO WAITING RIDE, INDEPENDENTLY TRANSFERS SELF TO VEHICLE W/OUT DIFFICULTY.
== END 2022-01-14 14:03 | disposition home health service (06) | DRG 637 ==
LOC: ER 11:58 → ICUW 15:43 → ICUE 16:58 → PCU 01-12 15:35
PROVIDERS: Emergency Medicine; Family Medicine; ADMIT Internal Medicine
DX: E11.10 Type 2 diabetes mellitus with ketoacidosis without coma (principal); G93.41 Metabolic encephalopathy; N17.9 Acute kidney failure, unspecified; R65.10 Systemic inflammatory response syndrome (SIRS) of non-infectious origin without acute organ dysfunction; E87.2 Acidosis; E87.1 Hypo-osmolality and hyponatremia; J45.909 Unspecified asthma, uncomplicated; E03.9 Hypothyroidism, unspecified; E78.00 Pure hypercholesterolemia, unspecified; E66.9 Obesity, unspecified; G47.33 Obstructive sleep apnea (adult) (pediatric); K21.9 Gastro-esophageal reflux disease without esophagitis; R68.0 Hypothermia, not associated with low environmental temperature; E86.0 Dehydration; T38.3X5A Adverse effect of insulin and oral hypoglycemic [antidiabetic] drugs, initial encounter; R19.7 Diarrhea, unspecified; I48.91 Unspecified atrial fibrillation; Z20.822 Contact with and (suspected) exposure to COVID-19; E87.6 Hypokalemia; E11.22 Type 2 diabetes mellitus with diabetic chronic kidney disease; I12.9 Hypertensive chronic kidney disease with stage 1 through stage 4 chronic kidney disease, or unspecified chronic kidney disease; N18.9 Chronic kidney disease, unspecified; G43.909 Migraine, unspecified, not intractable, without status migrainosus; Z87.442 Personal history of urinary calculi; Z90.710 Acquired absence of both cervix and uterus; Z90.49 Acquired absence of other specified parts of digestive tract; Z90.722 Acquired absence of ovaries, bilateral; Z98.890 Other specified postprocedural states; Z90.89 Acquired absence of other organs; Z98.84 Bariatric surgery status; Z79.899 Other long term (current) drug therapy; Z79.4 Long term (current) use of insulin; Z79.84 Long term (current) use of oral hypoglycemic drugs; Z88.8 Allergy status to other drugs, medicaments and biological substances; Z88.5 Allergy status to narcotic agent; Z91.048 Other nonmedicinal substance allergy status
CPT/HCPCS: 0241U; 36415; 51702; 70450; 71045; 72125; 80048; 80053; 80069; 81001; 82140; 82550; 82803; 82947; 83036; 83605; 83735; 84146; 84439; 84443; 84481; 84484; 85025; 85610; 85730; 87040; 87507; 93005; 93010; 94760; 96374; 96375; 96376; 97110; 97162; 97165; 97535; 99285-25; A9270; C1751; G0480; J0696; J1650; J1815; J2060; J2405; J2765; J3010; J3480; J7030; J7040; J7042; J7050; J7060; J7120

== ENCOUNTER → 2022-05-07 | Outpatient (CLI) | payer OTHER ==
[~2022-05-07] MED LIST changes: +GABA400 PO; +K-Dur20 MEQ PO; +MELO7.5 PO; +TOLT4 PO
== END | disposition home or self-care (01) ==
LOC: LAB 14:00 → LAB SHORT 14:00
DX: J18.9 Pneumonia, unspecified organism (principal)
CPT/HCPCS: 87077; 87081; 87185

== ENCOUNTER → 2022-12-15 | Outpatient (CLI) | payer OTHER | END | disposition home or self-care (01) | LOC: LAB 15:30 → LAB SHORT 15:30 | DX: R32 Unspecified urinary incontinence (principal) | CPT/HCPCS: 87086 ==

== ENCOUNTER 2023-07-20 00:13 | Observation (INO) | payer OTHER ==
[~2023-07-20] VITALS: Ht 172.7 cm; Wt 126.8 kg
[2023-07-20] VITALS (19 sets, daily range): BP systolic 106–164; BP diastolic 51–93
[~2023-07-20 00:13] MED LIST changes: +DICLOFENAC SOD100 G1 TP; +Percocet 5-3251 EACH PO
[2023-07-20 00:45] LABS: White Blood Cell Count 10.67 K/mm3 (4.00-11.30)
[2023-07-20 00:46] LABS: BASOPHILS ABSOLUTE AUTO 0.04 K/mm3 (0.00-0.23); BASOPHILS PERCENT AUTO 0 % (0-2); EOSINOPHILS ABSOLUTE AUTO 0.09 K/mm3 (0.00-0.68); EOSINOPHILS PERCENT AUTO 1 % (0-6); Hematocrit 44.3 % (33.0-51.0); Hemoglobin 14.9 g/dL (11.5-16.0); IMMATURE GRAN PERCENT AUTO 2 % (0-1); LYMPHOCYTES ABSOLUTE AUTO 2.18 K/mm3 (0.84-5.20); LYMPHOCYTES PERCENT AUTO 20 % (21-46); MONOCYTES ABSOLUTE AUTO 0.61 K/mm3 (0.16-1.47); MONOCYTES PERCENT AUTO 6 % (4-13); Mean Corpuscular HGB 30.3 pg (26.0-34.0); Mean Corpuscular HGB Conc 33.6 g/dL (31.5-36.5); Mean Corpuscular Volume 90 fL (80-100); NEUTROPHILS ABSOLUTE AUTO 7.55 K/mm3 (1.96-9.15); NEUTROPHILS PERCENT AUTO 71 % (41-73); Platelet Count 211 K/mm3 (150-400); RDW Coefficient Variation 12.7 % (11.7-14.2); RDW Standard Deviation 41.7 fL (35.1-46.3); Red Blood Cell Count 4.92 M/mm3 (3.80-5.20)
[2023-07-20 01:11] LABS: Magnesium, Blood 1.4 mg/dL (1.6-2.4)
[2023-07-20 01:13] LABS: Albumin, Blood 3.3 g/dL (3.4-5.0); Albumin/Globulin Ratio 1.2 (0.8-1.8); Bilirubin, Total 0.7 mg/dL (0.1-1.0); Bun/Creatinine Ratio 17.9 (12.0-20.0); Calcium, Blood 9.7 mg/dL (8.5-10.1); Creatinine, Blood 1.68 mg/dL (0.40-1.00); Globulin, Blood 2.8 g/dL (2.2-4.0); Potassium, Blood 3.8 mmol/L (3.5-5.5); Thyroid Stimulating Hormone 10.6 uIU/mL (0.360-4.800); Total Protein, Blood 6.1 g/dL (6.4-8.2)
[2023-07-20 02:52] LABS: Free Thyroxine 1.37 ng/dL (0.70-1.60)
[2023-07-20 04:54] LABS: BASOPHILS ABSOLUTE AUTO 0.04 K/mm3 (0.00-0.23); BASOPHILS PERCENT AUTO 0 % (0-2); EOSINOPHILS ABSOLUTE AUTO 0.01 K/mm3 (0.00-0.68); EOSINOPHILS PERCENT AUTO 0 % (0-6); Hematocrit 42.9 % (33.0-51.0); Hemoglobin 14.3 g/dL (11.5-16.0); IMMATURE GRAN PERCENT AUTO 2 % (0-1); LYMPHOCYTES ABSOLUTE AUTO 1.35 K/mm3 (0.84-5.20); LYMPHOCYTES PERCENT AUTO 13 % (21-46); MONOCYTES ABSOLUTE AUTO 0.25 K/mm3 (0.16-1.47); MONOCYTES PERCENT AUTO 2 % (4-13); Mean Corpuscular HGB 30.3 pg (26.0-34.0); Mean Corpuscular HGB Conc 33.3 g/dL (31.5-36.5); Mean Corpuscular Volume 91 fL (80-100); NEUTROPHILS PERCENT AUTO 83 % (41-73); Platelet Count 160 K/mm3 (150-400); RDW Coefficient Variation 12.6 % (11.7-14.2); RDW Standard Deviation 41.5 fL (35.1-46.3); Red Blood Cell Count 4.72 M/mm3 (3.80-5.20); White Blood Cell Count 10.65 K/mm3 (4.00-11.30)
[2023-07-20 05:40] LABS: Albumin, Blood 3.2 g/dL (3.4-5.0); Anion Gap 4 mmol/L (6-16); Blood Urea Nitrogen 30 mg/dL (8-24); CO2, Blood 25 mmol/L (21-32); Calcium, Blood 9.3 mg/dL (8.5-10.1); Chloride, Blood 107 mmol/L (98-108); Glomerular Filtration Rate 39 (60-); Glucose, Blood 355 mg/dL (70-99); Phosphorus, Blood 3.5 mg/dL (2.5-4.9); Potassium, Blood 4.1 mmol/L (3.5-5.5); Sodium, Blood 136 mmol/L (136-145)
--- NOTE | 2023-07-20 05:49 | NUR ---
PT ARRIVED FROM ER VIA GURNEY ON LEVOPHED AT 3MCG/MIN, STOPPED SHORTLY AFTER ARRIVAL, BP WNL. A/O X4, ADMISSION COMPLETED, PT HAS NO NATURAL SUPPORT AT HOME, NO FAMILY, NO DECISION MAKER. HAS 2 FRIENDS LISTED TO GET INFORMATION, BOTH LIVE AT THE SAME FACILITY THE PATIENT. SR, BP WNL. ON ROOM AIR, LUNGS CTA X ALL FOLEY. STATES SHE HAS A HISTORY OF COPD BUT IS UNSURE IF THAT DIAGNOSIS IS ACCURATE. DOES HAVE CARLOS, RT OFFERED CPAP, PT STATES SHE CANNOT USE DUE TO SINUS INFECTIONS. HAS NOT EATEN, ADMITS TO MILD NAUSEA WITH CURRENT DIZZINESS. VOIDS, HAS OCCASIONAL STRESS INCONTINENCE. SKIN INTACT, SMALL SCATTERED BRUISES FROM INJECTING INSULIN. PIV X2, LFA DOES NOT DRAW BLOOD, FLUSHES WELL. RIGHT AC DRAWS BLOOD WELL. BOTH SL. PT HAD INFILTRATION OF NS INTO RIGHT FA IN ER, ARM WAS WRAPPED UPON ARRIVAL. PT DENIES PAIN. PT ORIENTED TO ROOM, CALL LIGHT IN REACH. PLAN OF CARE ONGOING.
--- NOTE | 2023-07-20 08:45 | NUR ---
ASSUMED CARE / DR SALAZAR & RESIDENTS: REPORT RECEIVED FROM CALE Hoover RN. ASSUMED CARE OF THIS PT AT APPROX 0700. ON ASSESSMENT, THE PT IS AWAKE, A&O TO ALL. SHE STS HAVING SOME HEAD PAIN, WHICH SHE ATTRIBUTES TO HER CHRONIC MIGRAINES, SCHEDULED MEDS PER EMAR. LS CLEAR T/O, PT ON RA W/ O2 SATS > 94% ON AVG. MONITOR SHOWS SR W/ HR 60-70s, BP STABLE W/ LEVOPHED OFF SINCE 0430 THIS AM, PER REPORT. PT STS FEELING HUNGRY & READY FOR BREAKFAST. HAS HAD NO BM FOR APPROX 4 DAYS WHICH SHE STS IS HER "NORMAL," AT BASELINE, SHE ALTERNATES BETWEEN PERIODS OF CONSTIPATION & DIARRHEA. VOIDS URINE W/O DIFFICULTY. SKIN CONDITION OVERALL FRAGILE, INTACT. PT HAS SOME SCATTERED BRUISING & SCABS T/O SKIN SURFACE. STS SHE "PICKS" AT HER SKIN. DR SALAZAR & RESIDENT TEAM HAVE ALL BEEN AT BEDSIDE THIS AM TO EVAL THE PT. THEY HAVE DETERMINED THAT SHE IS OKAY TO BE MEDICAL STATUS & CHANGES HAVE BEEN MADE TO HER INSULIN ORDERS BASED ON HOME DOSING. WILL CONTINUE TO MONITOR & UPDATE NEEDED.
--- NOTE | 2023-07-20 12:19 | NUR ---
TRANSFER TO MEDICAL FLOOR: REPORT HAS BEEN GIVEN TO ERNESTINA GONZALES TO ASSUME CARE. THE PT HAS TRANSFERRED TO ROOM 431 VIA WC BY LIDIA MCCOY. THE PT's CHART & ALL BELONGINGS HAVE TRANSFERRED UP AT THAT TIME.
--- NOTE | 2023-07-20 12:30 | NUR ---
PT ARRIVED FROM PCU TO ROOM 341 VIA W/C. SBA TO BEDSIDE CHAIR FOR LUNCH. PT A/O X4, DENIES PAIN, WANTS OR NEEDS AT THIS TIME. CALL RICHARDS IN REACH, WILL CONTINUE TO MONITOR
--- NOTE | 2023-07-20 14:00 | NUR ---
CBG = 389, RECEIVED 10 UNITS SC REGULAR INSULI
--- NOTE | 2023-07-20 16:10 | NUR ---
CBG REPEATED PER MD. = 419, PT RECEIVED 15 UNITS PER HIGH CORRECTION SCALE
--- NOTE | 2023-07-20 16:31 | NUR ---
Upon receiving and referral for spiritual care, I visited the patient. I hear about the many stressors that the patient is dealing with. She shares about the loss of loved ones including her son, her divorce, her financial struggles, housing insecurity, transportation complications, medical problems and depression. She does talk about her holly in God and in her ability to survive almost anything. I highlight those strengths as well as the few people in her life that she trusts. I listen empathically, reinforce helpful attitudes and practices and provide anxiety containment and prayer. Patient responded well and showed signs of greater hope and peace. I will continue to remain available to patient and family.
--- NOTE | 2023-07-20 17:38 | NUR ---
DR WILDE CALLED AT 1650, DR INFORMED THIS RN HE WAS COMING UP TO TALK TO PT. VERBAL ORDERS RECEIVED FOR AN ADDITIONAL 1 TIME DOSE OF 10 UNITS REGULAR INSULIN
[2023-07-21 04:57] VITALS: BP 150/81
--- NOTE | 2023-07-21 06:35 | NUR ---
SHIFT SUMMARY PT IS A&O4, SB TO THE BR, RA, VSS, NO COMPLAINTS OF PAIN OR DISCOMFORT OVERNIGHT, OR ACUTE EVENTS CONTINUE POC
[2023-07-21 07:20] VITALS: BP 159/81
[2023-07-21] MEDS ORDERED: HUMULIN R100 UNIT/2 SC (15:22)
== END 2023-07-21 15:52 | disposition home health service (06) ==
LOC: ER 00:13 → MEDS 00:14 → ER 03:46 → ICUE 03:46 → MEDS 12:24
PROVIDERS: Family Medicine; Student in an Organized Health Care Education/Training Program; ADMIT Internal Medicine
DX: I95.9 Hypotension, unspecified (principal); E03.9 Hypothyroidism, unspecified; E11.9 Type 2 diabetes mellitus without complications; R55 Syncope and collapse; N32.81 Overactive bladder; G43.909 Migraine, unspecified, not intractable, without status migrainosus; E78.00 Pure hypercholesterolemia, unspecified; W18.39XA Other fall on same level, initial encounter; Z87.891 Personal history of nicotine dependence; Z79.4 Long term (current) use of insulin
CPT/HCPCS: 36415; 70450; 71046; 72125; 80053; 80069; 82533; 82947; 83735; 83880; 84439; 84443; 84484; 85025; 93005; 93010; 94760; 96361; 96365; 96366; 96367; 96375; 97110; 97116; 97161; 97530; 99285-25; A9270; G0378; J1644; J1720; J1815; J1885; J3475; J7030; J7060; Q2036

== ENCOUNTER 2023-10-11 22:08 | Emergency (ER) | payer OTHER ==
[~2023-10-11] VITALS: Ht 172.7 cm; Wt 131.1 kg
[~2023-10-11 22:08] MED LIST changes: +HUMULIN R100 UNIT/2 SC
[2023-10-11 23:13] LABS: BASOPHILS ABSOLUTE AUTO 0.05 K/mm3 (0.00-0.23); BASOPHILS PERCENT AUTO 1 % (0-2); EOSINOPHILS ABSOLUTE AUTO 0.09 K/mm3 (0.00-0.68); EOSINOPHILS PERCENT AUTO 1 % (0-6); Hematocrit 45.4 % (33.0-51.0); Hemoglobin 15.4 g/dL (11.5-16.0); IMMATURE GRAN ABSOLUTE AUTO 0.33 K/mm3 (0.00-0.10); IMMATURE GRAN PERCENT AUTO 3 % (0-1); LYMPHOCYTES ABSOLUTE AUTO 2.42 K/mm3 (0.84-5.20); LYMPHOCYTES PERCENT AUTO 23 % (21-46); MONOCYTES ABSOLUTE AUTO 0.58 K/mm3 (0.16-1.47); MONOCYTES PERCENT AUTO 6 % (4-13); Mean Corpuscular HGB 30.1 pg (26.0-34.0); Mean Corpuscular HGB Conc 33.9 g/dL (31.5-36.5); Mean Corpuscular Volume 89 fL (80-100); Mean Platelet Volume 11.5 fL (9.1-12.4); NEUTROPHILS ABSOLUTE AUTO 6.85 K/mm3 (1.96-9.15); NEUTROPHILS PERCENT AUTO 66 % (41-73); Platelet Count 235 K/mm3 (150-400); RDW Coefficient Variation 12.4 % (11.7-14.2); RDW Standard Deviation 40.7 fL (35.1-46.3); Red Blood Cell Count 5.12 M/mm3 (3.80-5.20); White Blood Cell Count 10.32 K/mm3 (4.00-11.30)
[2023-10-11 23:45] LABS: Source, Urine Clean Catch
[2023-10-11 23:51] LABS: Magnesium, Blood 1.4 mg/dL (1.6-2.4); Thyroid Stimulating Hormone 1.15 uIU/mL (0.360-4.800)
[2023-10-11 23:53] LABS: Albumin, Blood 3.4 g/dL (3.4-5.0); Bilirubin, Total 0.3 mg/dL (0.1-1.0); Calcium, Blood 9.7 mg/dL (8.5-10.1); Creatinine, Blood 0.86 mg/dL (0.40-1.00); Globulin, Blood 3.3 g/dL (2.2-4.0); Phosphorus, Blood 1.8 mg/dL (2.5-4.9); Potassium, Blood 3.8 mmol/L (3.5-5.5); Total Protein, Blood 6.7 g/dL (6.4-8.2)
[2023-10-11 23:56] LABS: Influenza A, PCR NEGATIVE (NEGATIVE); Influenza B, PCR NEGATIVE (NEGATIVE); Resp Syncytial Virus, PCR NEGATIVE (NEGATIVE); SARS-Cov-2 (COVID-19) PCR, MMC NEGATIVE (NEGATIVE)
[2023-10-11 23:59] LABS: Bilirubin, Urine Neg (Neg); Blood, Urine Neg (Neg); Glucose Qualitative, Urine 4+ (Neg); Ketones, Urine Neg (Neg); Leukocyte Esterase, Urine 1+ (Neg); Nitrite, Urine Neg (Neg); Protein, Urine 1+ (Neg); Specific Gravity, Urine 1.015 (1.003-1.022); Urobilinogen, Urine NORM (Normal)
[2023-10-12] LABS: Beta-hydroxybutyrate 6.7 mg/dL (0.2-2.8)
[2023-10-12 00:13] LABS: Appearance, Urine Clear (Clear); Color, Urine Yellow (P-Yellow)
[2023-10-12 00:32] LABS: Amorphous Light (0-Heavy); Bacteria Few /hpf; Mucus Light (0-Heavy); Red Blood Cells, Urine Not Seen /hpf (0-2); Renal Epithelial Few /hpf (0-Rare); Squamous Epithelial Cells Not Seen /hpf (Few)
[2023-10-12] MEDS ORDERED: CEPH500 PO (01:06)
[2023-10-12 02:48] VITALS: BP 178/84
== END 2023-10-12 02:49 | disposition home or self-care (01) ==
LOC: ER 22:08
PROVIDERS: Emergency Medicine
DX: N39.0 Urinary tract infection, site not specified (principal); E86.0 Dehydration; E83.42 Hypomagnesemia; E83.39 Other disorders of phosphorus metabolism; E11.9 Type 2 diabetes mellitus without complications; J45.909 Unspecified asthma, uncomplicated; E03.9 Hypothyroidism, unspecified; K21.9 Gastro-esophageal reflux disease without esophagitis; Z91.030 Bee allergy status; Z91.09 Other allergy status, other than to drugs and biological substances; Z88.8 Allergy status to other drugs, medicaments and biological substances; Z79.899 Other long term (current) drug therapy; Z79.4 Long term (current) use of insulin; Z79.890 Hormone replacement therapy; Z11.52 Encounter for screening for COVID-19
CPT/HCPCS: 0241U; 71046; 80053; 81001; 82010; 82947; 83735; 84100; 84443; 85025; 87077; 87086; 87186; 93005; 93010; 96361; 96365; 96366; 96368; 96375; 99285-25; A9270; J0696; J1885; J3475; J7030

== ENCOUNTER 2024-04-13 18:02 | Emergency (ER) | payer OTHER ==
[~2024-04-13] VITALS: Ht 172.7 cm; Wt 145.2 kg
[2024-04-13 19:00] LABS: BASOPHILS ABSOLUTE AUTO 0.02 K/mm3 (0.00-0.23); BASOPHILS PERCENT AUTO 0 % (0-2); EOSINOPHILS ABSOLUTE AUTO 0.14 K/mm3 (0.00-0.68); EOSINOPHILS PERCENT AUTO 2 % (0-6); Hematocrit 46.5 % (33.0-51.0); Hemoglobin 15.6 g/dL (11.5-16.0); IMMATURE GRAN ABSOLUTE AUTO 0.09 K/mm3 (0.00-0.10); IMMATURE GRAN PERCENT AUTO 1 % (0-1); LYMPHOCYTES ABSOLUTE AUTO 2.43 K/mm3 (0.84-5.20); LYMPHOCYTES PERCENT AUTO 31 % (21-46); MONOCYTES ABSOLUTE AUTO 0.46 K/mm3 (0.16-1.47); MONOCYTES PERCENT AUTO 6 % (4-13); Mean Corpuscular HGB 30.3 pg (26.0-34.0); Mean Corpuscular HGB Conc 33.5 g/dL (31.5-36.5); Mean Corpuscular Volume 90 fL (80-100); NEUTROPHILS ABSOLUTE AUTO 4.82 K/mm3 (1.96-9.15); NEUTROPHILS PERCENT AUTO 61 % (41-73); Platelet Count 220 K/mm3 (150-400); RDW Coefficient Variation 12.5 % (11.7-14.2); RDW Standard Deviation 41.3 fL (35.1-46.3); Red Blood Cell Count 5.15 M/mm3 (3.80-5.20); White Blood Cell Count 7.96 K/mm3 (4.00-11.30)
[2024-04-13 19:20] LABS: Albumin, Blood 3.7 g/dL (3.4-5.0); Albumin/Globulin Ratio 1.1 (0.8-1.8); Bilirubin, Total 0.7 mg/dL (0.1-1.0); Bun/Creatinine Ratio 33.6 (12.0-20.0); Calcium, Blood 10.7 mg/dL (8.5-10.1); Creatinine, Blood 1.13 mg/dL (0.40-1.00); Globulin, Blood 3.4 g/dL (2.2-4.0); Potassium, Blood 3.8 mmol/L (3.5-5.5); Total Protein, Blood 7.1 g/dL (6.4-8.2)
[2024-04-13 19:58] LABS: Influenza A, PCR NEGATIVE (NEGATIVE); Influenza B, PCR NEGATIVE (NEGATIVE); Resp Syncytial Virus, PCR NEGATIVE (NEGATIVE)
[2024-04-13 20:18] LABS: SARS-Cov-2 (COVID-19) PCR, MMC POSITIVE (NEGATIVE)
[2024-04-13] MEDS ORDERED: Metoprolol Tartrate 1 MG/ML 5 ML VIAL IV ONE (20:40)
[2024-04-13] MEDS ORDERED: RX Prepack Albuterol 1 PREPACK/6.7 GM INH UD ONE (20:45)
[2024-04-13] MEDS ORDERED: ALBU90OI INH (20:45)
[2024-04-13 21:46] VITALS: BP 216/102
== END 2024-04-13 21:47 | disposition home or self-care (01) ==
LOC: ER 18:02
PROVIDERS: Emergency Medicine
DX: U07.1 COVID-19 (principal); M23.51 Chronic instability of knee, right knee; E11.9 Type 2 diabetes mellitus without complications; J45.909 Unspecified asthma, uncomplicated; E03.9 Hypothyroidism, unspecified; G47.30 Sleep apnea, unspecified; E78.00 Pure hypercholesterolemia, unspecified; K21.9 Gastro-esophageal reflux disease without esophagitis; G43.909 Migraine, unspecified, not intractable, without status migrainosus; W18.30XA Fall on same level, unspecified, initial encounter; Z79.899 Other long term (current) drug therapy; Z79.4 Long term (current) use of insulin; Z91.048 Other nonmedicinal substance allergy status; Z91.038 Other insect allergy status; Z88.5 Allergy status to narcotic agent; Z88.8 Allergy status to other drugs, medicaments and biological substances
CPT/HCPCS: 0241U; 71046; 80053; 84484; 85025; 93005; 93010; 96374; 99285-25; A9270

== ENCOUNTER 2024-04-19 12:40 | Emergency (ER) | payer MEDICARE, OTHER ==
[~2024-04-19] VITALS: Ht 172.7 cm; Wt 146.5 kg
[2024-04-19] MEDS ORDERED: Ondansetron 4 MG SoluTab SL PRN (13:50)
[2024-04-19] MEDS ORDERED: NS 1,000 ML IV SCH ×2 (14:10→15:35)
[2024-04-19 14:13] LABS: BASOPHILS ABSOLUTE AUTO 0.04 K/mm3 (0.00-0.23); BASOPHILS PERCENT AUTO 1 % (0-2); EOSINOPHILS ABSOLUTE AUTO 0.11 K/mm3 (0.00-0.68); EOSINOPHILS PERCENT AUTO 1 % (0-6); Hematocrit 46.2 % (33.0-51.0); Hemoglobin 15.9 g/dL (11.5-16.0); IMMATURE GRAN ABSOLUTE AUTO 0.23 K/mm3 (0.00-0.10); IMMATURE GRAN PERCENT AUTO 3 % (0-1); LYMPHOCYTES PERCENT AUTO 26 % (21-46); MONOCYTES ABSOLUTE AUTO 0.52 K/mm3 (0.16-1.47); MONOCYTES PERCENT AUTO 6 % (4-13); Mean Corpuscular HGB 30.6 pg (26.0-34.0); Mean Corpuscular HGB Conc 34.4 g/dL (31.5-36.5); Mean Corpuscular Volume 89 fL (80-100); Mean Platelet Volume 12.9 fL (9.1-12.4); NEUTROPHILS ABSOLUTE AUTO 5.24 K/mm3 (1.96-9.15); NEUTROPHILS PERCENT AUTO 64 % (41-73); Platelet Count 227 K/mm3 (150-400); RDW Coefficient Variation 12.2 % (11.7-14.2); RDW Standard Deviation 40.2 fL (35.1-46.3); White Blood Cell Count 8.24 K/mm3 (4.00-11.30)
[2024-04-19 14:25] LABS: Albumin, Blood 3.6 g/dL (3.4-5.0); Bilirubin, Total 0.8 mg/dL (0.1-1.0); Bun/Creatinine Ratio 22.2 (12.0-20.0); Calcium, Blood 10.3 mg/dL (8.5-10.1); Creatinine, Blood 1.35 mg/dL (0.40-1.00); Globulin, Blood 3.6 g/dL (2.2-4.0); Potassium, Blood 4.3 mmol/L (3.5-5.5); Total Protein, Blood 7.2 g/dL (6.4-8.2)
[2024-04-19 15:04] LABS: Base Excess Venous -0.9 mmol/L; Bicarbonate Venous 22.9 mmol/L (24.0-30.0); PCO2 Venous 49.7 mmHg (38-42); pH Blood Venous 7.31 (7.34-7.37)
[2024-04-19] MEDS ORDERED: Insulin Regular 100 Unit/ML 1ML Dose IV ONE (15:35)
[2024-04-19 16:08] LABS: Source, Urine Clean Catch
[2024-04-19 16:12] LABS: Appearance, Urine Hazy (Clear); Bilirubin, Urine Neg (Neg); Blood, Urine Neg (Neg); Glucose Qualitative, Urine 4+ (Neg); Ketones, Urine 1+ (Neg); Leukocyte Esterase, Urine 1+ (Neg); Nitrite, Urine Pos (Neg); Protein, Urine Neg (Neg); Urobilinogen, Urine NORM (Normal)
[2024-04-19 16:31] LABS: Color, Urine Pale Yellow (P-Yellow)
[2024-04-19 16:33] LABS: Bacteria Many /hpf; Red Blood Cells, Urine 0-2 /hpf (0-2); Squamous Epithelial Cells Few /hpf (Few); Yeast/Fungi Urine Few /hpf
[2024-04-19] MEDS ORDERED: CefTRIAXone Sodium 1,000 MG in NS 50 ML IV ONE (16:50)
[2024-04-19] MEDS ORDERED: Prochlorperazine Edisylate 10 mg Vial IV ONE (17:30)
[2024-04-19 20:15] VITALS: BP 141/60
[2024-04-19] MEDS ORDERED: LOPE2C PO (20:20)
[2024-04-19] MEDS ORDERED: CEPH500 PO (20:20)
[2024-04-19] MEDS ORDERED: ONDA4ODT MM (20:20)
== END 2024-04-19 20:33 | disposition home or self-care (01) ==
LOC: ER 12:40
PROVIDERS: Emergency Medicine
DX: N39.0 Urinary tract infection, site not specified (principal); U07.1 COVID-19; R11.2 Nausea with vomiting, unspecified; R19.7 Diarrhea, unspecified; E11.9 Type 2 diabetes mellitus without complications; J45.909 Unspecified asthma, uncomplicated; E03.9 Hypothyroidism, unspecified; E78.5 Hyperlipidemia, unspecified; K21.9 Gastro-esophageal reflux disease without esophagitis; Z79.899 Other long term (current) drug therapy; Z79.4 Long term (current) use of insulin; Z91.030 Bee allergy status; Z88.5 Allergy status to narcotic agent; Z88.8 Allergy status to other drugs, medicaments and biological substances; Z91.048 Other nonmedicinal substance allergy status
CPT/HCPCS: 80053; 81001; 82803; 82947; 83690; 85025; 87077; 87086; 87186; 96365; 96366; 96375; 99285-25; A9270; J0696; J0780; J1815; J7030

== ENCOUNTER 2024-08-11 19:30 | Inpatient (IN) | payer MEDICARE, OTHER ==
[~2024-08-11] VITALS: Ht 172.7 cm; Wt 133.9 kg
[~2024-08-11 19:30] MED LIST changes: +HUMALOG100 UNIT/1 SC; -Humalog100 UNIT/1 SC; +LOPE2C PO
[2024-08-11] MEDS ORDERED: NS 1,000 ML IV SCH ×2 (20:15→22:15)
[2024-08-11 20:22] LABS: PCO2 Venous 50.7 mmHg (38-42)
[2024-08-11 20:23] LABS: Base Excess Venous -1.5 mmol/L; Bicarbonate Venous 21.9 mmol/L (24.0-30.0)
[2024-08-11 20:30] LABS: BASOPHILS ABSOLUTE AUTO 0.04 K/mm3 (0.00-0.23); BASOPHILS PERCENT AUTO 1 % (0-2); EOSINOPHILS PERCENT AUTO 2 % (0-6); Hematocrit 44.7 % (33.0-51.0); Hemoglobin 15.2 g/dL (11.5-16.0); IMMATURE GRAN PERCENT AUTO 1 % (0-1); LYMPHOCYTES ABSOLUTE AUTO 1.96 K/mm3 (0.84-5.20); LYMPHOCYTES PERCENT AUTO 24 % (21-46); MONOCYTES ABSOLUTE AUTO 0.41 K/mm3 (0.16-1.47); MONOCYTES PERCENT AUTO 5 % (4-13); Mean Corpuscular HGB 30.8 pg (26.0-34.0); Mean Corpuscular Volume 91 fL (80-100); NEUTROPHILS ABSOLUTE AUTO 5.56 K/mm3 (1.96-9.15); NEUTROPHILS PERCENT AUTO 67 % (41-73); Platelet Count 212 K/mm3 (150-400); RDW Coefficient Variation 12.1 % (11.7-14.2); RDW Standard Deviation 39.8 fL (35.1-46.3); Red Blood Cell Count 4.94 M/mm3 (3.80-5.20); White Blood Cell Count 8.27 K/mm3 (4.00-11.30)
[2024-08-11 20:52] LABS: Beta-hydroxybutyrate 5.7 mg/dL (0.2-2.8)
[2024-08-11 20:54] LABS: Albumin, Blood 3.6 g/dL (3.4-5.0); Albumin/Globulin Ratio 1.2 (0.8-1.8); Bilirubin, Total 0.8 mg/dL (0.1-1.0); Bun/Creatinine Ratio 15.9 (12.0-20.0); Creatinine, Blood 1.89 mg/dL (0.40-1.00); Globulin, Blood 3.1 g/dL (2.2-4.0); Potassium, Blood 3.7 mmol/L (3.5-5.5); Total Protein, Blood 6.7 g/dL (6.4-8.2)
[2024-08-11 21:48] LABS: Source, Urine Straight Cath
[2024-08-11 21:51] LABS: Appearance, Urine Hazy (Clear); Bilirubin, Urine Neg (Neg); Blood, Urine 1+ (Neg); Color, Urine Yellow (P-Yellow); Glucose Qualitative, Urine 4+ (Neg); Ketones, Urine Neg (Neg); Leukocyte Esterase, Urine 2+ (Neg); Nitrite, Urine Neg (Neg); Protein, Urine 2+ (Neg); Urobilinogen, Urine NORM (Normal)
[2024-08-11] MEDS ORDERED: Insulin Human Regular 100 UNIT in NS 100 ML IV SCH (22:15)
[2024-08-11] MEDS ORDERED: Potassium Chloride 20 MEQ in Sodium Chloride 0.45% 1,000 ML IV SCH (22:15)
[2024-08-11 22:16] LABS: Bacteria Many /hpf; Red Blood Cells, Urine 0-2 /hpf (0-2); Squamous Epithelial Cells Mod /hpf (Few); White Blood Cells, Urine 50-100 /hpf (0-5); Yeast/Fungi Urine Many /hpf
[2024-08-11] MEDS ORDERED: Ondansetron HCl 2 MG / ML 2ML Vial IV PRN (22:45)
[2024-08-11] MEDS ORDERED: Lactated Ringer's 1,000 ML IV SCH (22:45)
[2024-08-11] MEDS ORDERED: FLU VACC TS2024-25(6MOS UP)/PF 45 MCG/0.5 ML SYRINGE IM SCH (22:45)
[2024-08-11] MEDS ORDERED: Albuterol 2.5 MG/3 ML VIAL INH PRN (22:55)
[2024-08-11] MEDS ORDERED: Insulin Regular 100 Unit/ML 1ML Dose IV ONE (23:00)
[2024-08-11] MEDS ORDERED: Insulin Glargine-Yfgn 100 Unit/mL 3 ML SYR SC SCH (23:00)
[2024-08-11] MEDS ORDERED: Potassium Chloride 20 MEQ TabCR PO ONE (23:00)
[2024-08-11] MEDS ORDERED: Magnesium Sulf 2 GM/Water 50ML 50 ML IV ONE (23:10)
[2024-08-11] MEDS ORDERED: CefTRIAXone Sodium 1,000 MG in NS 100 ML IV SCH (23:18)
[2024-08-12 01:24] LABS: Glucose, Blood 632 mg/dL (70-99)
[2024-08-12 03:10] LABS: Glucose, Blood 575 mg/dL (70-99)
[2024-08-12] MEDS ORDERED: Levothyroxine Sodium 0.088 MG Tab PO SCH (06:00)
[2024-08-12] MEDS ORDERED: Levothyroxine Sodium 0.1 MG Tab PO SCH (06:00)
[2024-08-12] MEDS ORDERED: Omeprazole 20 MG CapCR PO SCH (06:00)
[2024-08-12] MEDS ORDERED: Levothyroxine Sodium 0.125 MG Tab PO SCH (06:00)
[2024-08-12 07:41] LABS: Bun/Creatinine Ratio 19.1 (12.0-20.0); Calcium, Blood 9.2 mg/dL (8.5-10.1); Creatinine, Blood 1.36 mg/dL (0.40-1.00); Potassium, Blood 4.8 mmol/L (3.5-5.5)
[2024-08-12 08:19] VITALS: BP 147/83
[2024-08-12] MEDS ORDERED: HUMALOG100 UNIT/1 SC (08:56)
[2024-08-12] MEDS ORDERED: Lactobacil 2-S.Thermo-Bifido 1 1 Cap PO SCH (09:00)
[2024-08-12] MEDS ORDERED: Gabapentin 400 MG Cap PO SCH (09:00)
[2024-08-12] MEDS ORDERED: Heparin Sodium,Porcine 5,000 UNIT/0.5 ML SDV SC SCH (09:00)
[2024-08-12] MEDS ORDERED: Topiramate 100 MG Tab PO SCH (09:00)
[2024-08-12] MEDS ORDERED: Trospium Chloride 20 MG Tab PO SCH (09:20)
[2024-08-12] MEDS ORDERED: Insulin Human Lispro 100 Units/ML 3ML Syringe SC SCH ×3 (12:00→12:30)
[2024-08-12 13:01] LABS: Bun/Creatinine Ratio 22.5 (12.0-20.0); Calcium, Blood 10.3 mg/dL (8.5-10.1); Creatinine, Blood 1.11 mg/dL (0.40-1.00); Potassium, Blood 3.6 mmol/L (3.5-5.5)
[2024-08-12 13:12] VITALS: BP 163/80
[2024-08-12 16:21] VITALS: BP 155/92
--- NOTE | 2024-08-12 18:05 | NUR ---
SHIFT SUMMARY PT ALERT AND ORIENTED, CALM, COOPERATIVE TO CARE. HR IN THE 70'S, NSR, SBP STABLE, O2 >92% ON RA. LR RUNNING PER ORDER. BG ELEVATED, MEDICATING PER EMAR, LAST BG HAD TRENDED DOWN FROM PREVIOUS RESULTS. PT DENIES ABD PAIN AT THIS TIME. NO ACUTE CHANGES T/O SHIFT. PLAN FOR PT TO D/C TOMORROW. VOUCHER FOR PTS INSULIN IN PTS CHART, PT WILL NEED TO GET FROM PHARMACY AFTER D/C. SHE DENIES ANY QUESTIONS OR CONCERNS AT THIS TIME. WILL CONTINUE TO MONITOR PT AND REPORT TO SALES ASSOCIATE RN.
[2024-08-12 19:57] VITALS: BP 143/67
[2024-08-12] MEDS ORDERED: SUMAtriptan succinate 50 MG Tab PO PRN (20:00)
[2024-08-12 20:32] LABS: Bun/Creatinine Ratio 18.7 (12.0-20.0); Calcium, Blood 9.5 mg/dL (8.5-10.1); Creatinine, Blood 1.23 mg/dL (0.40-1.00); Potassium, Blood 3.6 mmol/L (3.5-5.5)
[2024-08-12 23:40] VITALS: BP 152/82
[2024-08-13 02:42] LABS: Bun/Creatinine Ratio 16.2 (12.0-20.0); Creatinine, Blood 1.17 mg/dL (0.40-1.00); Potassium, Blood 3.4 mmol/L (3.5-5.5)
[2024-08-13 04:18] VITALS: BP 129/73
--- NOTE | 2024-08-13 05:15 | NUR ---
SHIFT SUMMARY ASSUMED CARE OF PT AT 1900. PT A&O4, EXPRESSES SELF APPROPRIATELY AND COOPERATIVE IN CARE. PT DENIES CP AND SOB, ONLY REQUESTED MEDS FOR MIGRAINE AND PROVIDED PT WITH AN ICE PACK FOR HEAD. NO OTHER COMPLAINTS AFTER. GLUCOSE LEVELS LOWERED OVERNIGHT AND VSS. PT SEEMED A LITTLE WEAK GETTING UP TO THE BSC, MAY NEED PT EVAL. PT'S BED IN LOWEST POSITION AND CALL LIGHT WITHIN REACH.
[2024-08-13 07:35] VITALS: BP 157/86
[2024-08-13] MEDS ORDERED: DULoxetine HCL 60 MG Capsule DR PO SCH (09:00)
[2024-08-13 09:11] LABS: BASOPHILS ABSOLUTE AUTO 0.01 K/mm3 (0.00-0.23); BASOPHILS PERCENT AUTO 0 % (0-2); EOSINOPHILS ABSOLUTE AUTO 0.21 K/mm3 (0.00-0.68); EOSINOPHILS PERCENT AUTO 3 % (0-6); Hematocrit 40.7 % (33.0-51.0); Hemoglobin 13.7 g/dL (11.5-16.0); IMMATURE GRAN ABSOLUTE AUTO 0.05 K/mm3 (0.00-0.10); IMMATURE GRAN PERCENT AUTO 1 % (0-1); LYMPHOCYTES ABSOLUTE AUTO 1.64 K/mm3 (0.84-5.20); LYMPHOCYTES PERCENT AUTO 19 % (21-46); MONOCYTES ABSOLUTE AUTO 0.47 K/mm3 (0.16-1.47); MONOCYTES PERCENT AUTO 6 % (4-13); Mean Corpuscular HGB 30.7 pg (26.0-34.0); Mean Corpuscular HGB Conc 33.7 g/dL (31.5-36.5); Mean Corpuscular Volume 91 fL (80-100); NEUTROPHILS ABSOLUTE AUTO 6.18 K/mm3 (1.96-9.15); NEUTROPHILS PERCENT AUTO 72 % (41-73); Platelet Count 156 K/mm3 (150-400); RDW Coefficient Variation 12.5 % (11.7-14.2); RDW Standard Deviation 41.5 fL (35.1-46.3); Red Blood Cell Count 4.46 M/mm3 (3.80-5.20); White Blood Cell Count 8.56 K/mm3 (4.00-11.30)
--- NOTE | 2024-08-13 09:44 | NUR ---
ASSUMPTION OF CARE PT ALERT AND ORIENTED, CALM, COOPERATIVE TO CARE. HR IN THE 90'S-100'S, PT REPORTING CHEST PAIN/PRESSURE A 5/10, PER PT SHE REPORTS SHE GETS THIS PAIN WHEN SHE IS ANXIOUS AND THAT THE PAIN WAS RESOLVING. NO CHANGES NOTED ON TELEMETERY. NOTIFIED, NO NEW ORDERS AT THIS TIME. SBP STABLE. O2 >92% ON RA. PT CBG'S IN THE 160'S. PT TO WORK [facility] PT AND PLAN FOR D/C TODAY. WILL CONTINUE TO MONITOR PT.
[2024-08-13 09:45] LABS: Mean Platelet Volume 13.1 fL (9.1-12.4)
[2024-08-13] MEDS ORDERED: Propranolol HCL 60 MG CAPCR PO ONE (10:25)
[2024-08-13 11:48] VITALS: BP 143/84
[2024-08-13] MEDS ORDERED: CEFD300 PO (13:00)
[2024-08-13] MEDS ORDERED: VISBIOME 112.51 EACH PO (13:00)
--- NOTE | 2024-08-13 15:15 | NUR ---
DISCHARGE SUMMARY PT ALERT AND ORIENTED, COOPERATIVE TO CARE. NSR, 90'S, DENIES CP AT THIS TIME, SBP STABLE. 02 >94% ON RA. VSS. NO ACUTE CHANGES T/O SHIFT. REVIEWED DISCHARGE INSTRUCTIONS WITH PT. PT SENT HOME WITH VOUCHERS TO THE PHARMACY FOR HER INUSILINS, ABX, AND PROBIOTIC. R AC AND R WRIST IV REMOVED, PRESSURE APPLIED, WRAPPED WITH GUAZE AND COBAN, PT TOLERATED WELL. PT DENIED ANY QUESTIONS AT THIS TIME. PT LEFT VIA WHEELCHAIR WITH [facility] AND PCT.
== END 2024-08-13 14:57 | disposition home or self-care (01) | DRG 637 ==
LOC: ER 19:30 → PCU 19:31
PROVIDERS: Emergency Medicine; Student in an Organized Health Care Education/Training Program; ADMIT Internal Medicine
DX: E11.10 Type 2 diabetes mellitus with ketoacidosis without coma (principal); G93.41 Metabolic encephalopathy; E87.4 Mixed disorder of acid-base balance; N17.9 Acute kidney failure, unspecified; N39.0 Urinary tract infection, site not specified; E11.22 Type 2 diabetes mellitus with diabetic chronic kidney disease; N18.30 Chronic kidney disease, stage 3 unspecified; E03.9 Hypothyroidism, unspecified; E83.42 Hypomagnesemia; N20.0 Calculus of kidney; E66.01 Morbid (severe) obesity due to excess calories; F41.9 Anxiety disorder, unspecified; K52.9 Noninfective gastroenteritis and colitis, unspecified; M54.2 Cervicalgia; K21.9 Gastro-esophageal reflux disease without esophagitis; M17.0 Bilateral primary osteoarthritis of knee; E11.40 Type 2 diabetes mellitus with diabetic neuropathy, unspecified; J45.909 Unspecified asthma, uncomplicated; G47.33 Obstructive sleep apnea (adult) (pediatric); N32.81 Overactive bladder; G43.909 Migraine, unspecified, not intractable, without status migrainosus; Z91.038 Other insect allergy status; Z88.5 Allergy status to narcotic agent; Z91.148 Patient's other noncompliance with medication regimen for other reason; Z88.8 Allergy status to other drugs, medicaments and biological substances; Z91.048 Other nonmedicinal substance allergy status; Z90.710 Acquired absence of both cervix and uterus; Z90.89 Acquired absence of other organs; Z90.722 Acquired absence of ovaries, bilateral; Z90.49 Acquired absence of other specified parts of digestive tract; Z98.890 Other specified postprocedural states; Z68.39 Body mass index [BMI] 39.0-39.9, adult
CPT/HCPCS: 36415; 71046; 80048; 80053; 81001; 82010; 82803; 82947; 83036; 83690; 83735; 85025; 87077; 87086; 87186; 93005; 93010; 94762; 96361; 96365; 96366; 96367; 96368; 96372; 99285-25; A9270; G0378; J0696; J1644; J1815; J3475; J3480; J7030; J7120

== ENCOUNTER 2024-08-14 10:41 | Emergency (ER) | payer MEDICARE, OTHER ==
[~2024-08-14] VITALS: Ht 172.7 cm; Wt 132.0 kg
[~2024-08-14 10:41] MED LIST changes: +CEFD300 PO; +VISBIOME 112.51 EACH PO
[2024-08-14 11:07] VITALS: BP 160/103
[2024-08-14] MEDS ORDERED: Insulin Glargine-Yfgn 100 Unit/mL 3 ML SYR SC ONE (11:45)
== END 2024-08-14 12:40 | disposition home or self-care (01) ==
LOC: ER 10:41
DX: Z76.89 Persons encountering health services in other specified circumstances (principal); E11.9 Type 2 diabetes mellitus without complications; J45.909 Unspecified asthma, uncomplicated; E03.9 Hypothyroidism, unspecified; G47.30 Sleep apnea, unspecified; E78.5 Hyperlipidemia, unspecified; K21.9 Gastro-esophageal reflux disease without esophagitis; G43.909 Migraine, unspecified, not intractable, without status migrainosus; Z88.5 Allergy status to narcotic agent; Z88.8 Allergy status to other drugs, medicaments and biological substances; Z91.030 Bee allergy status; Z91.048 Other nonmedicinal substance allergy status; Z79.1 Long term (current) use of non-steroidal anti-inflammatories (NSAID); Z79.4 Long term (current) use of insulin; Z79.890 Hormone replacement therapy; Z79.899 Other long term (current) drug therapy; Z59.89 Other problems related to housing and economic circumstances; E11.65 Type 2 diabetes mellitus with hyperglycemia
CPT/HCPCS: 80053; 82947; 83690; 85025; 99281; J1815

== ENCOUNTER 2024-08-14 19:24 | Emergency (ER) | payer MEDICARE, OTHER ==
[~2024-08-14] VITALS: Ht 172.7 cm; Wt 132.0 kg
[2024-08-14 20:07] LABS: BASOPHILS ABSOLUTE AUTO 0.04 K/mm3 (0.00-0.23); BASOPHILS PERCENT AUTO 1 % (0-2); EOSINOPHILS ABSOLUTE AUTO 0.18 K/mm3 (0.00-0.68); EOSINOPHILS PERCENT AUTO 2 % (0-6); Hematocrit 41.9 % (33.0-51.0); Hemoglobin 14.6 g/dL (11.5-16.0); IMMATURE GRAN ABSOLUTE AUTO 0.13 K/mm3 (0.00-0.10); IMMATURE GRAN PERCENT AUTO 2 % (0-1); LYMPHOCYTES ABSOLUTE AUTO 2.47 K/mm3 (0.84-5.20); LYMPHOCYTES PERCENT AUTO 28 % (21-46); MONOCYTES PERCENT AUTO 6 % (4-13); Mean Corpuscular HGB 30.9 pg (26.0-34.0); Mean Corpuscular HGB Conc 34.8 g/dL (31.5-36.5); Mean Corpuscular Volume 89 fL (80-100); Mean Platelet Volume 12.4 fL (9.1-12.4); NEUTROPHILS ABSOLUTE AUTO 5.55 K/mm3 (1.96-9.15); NEUTROPHILS PERCENT AUTO 63 % (41-73); Platelet Count 196 K/mm3 (150-400); RDW Coefficient Variation 12.3 % (11.7-14.2); RDW Standard Deviation 39.8 fL (35.1-46.3); Red Blood Cell Count 4.72 M/mm3 (3.80-5.20); White Blood Cell Count 8.87 K/mm3 (4.00-11.30)
[2024-08-14 20:26] LABS: Albumin, Blood 3.4 g/dL (3.4-5.0); Bilirubin, Total 0.4 mg/dL (0.1-1.0); Bun/Creatinine Ratio 23.8 (12.0-20.0); Calcium, Blood 10.3 mg/dL (8.5-10.1); Creatinine, Blood 1.26 mg/dL (0.40-1.00); Globulin, Blood 3.3 g/dL (2.2-4.0); Potassium, Blood 3.6 mmol/L (3.5-5.5); Total Protein, Blood 6.7 g/dL (6.4-8.2)
[2024-08-14] MEDS ORDERED: Insulin Glargine-Yfgn 100 Unit/mL 3 ML SYR SC ONE ×2 (22:30→22:35)
[2024-08-14 22:51] VITALS: BP 181/93
== END 2024-08-14 22:52 | disposition home or self-care (01) ==
LOC: ER 19:24
PROVIDERS: Emergency Medicine
DX: E11.65 Type 2 diabetes mellitus with hyperglycemia (principal); E03.9 Hypothyroidism, unspecified; E78.5 Hyperlipidemia, unspecified; K21.9 Gastro-esophageal reflux disease without esophagitis; Z91.030 Bee allergy status; Z88.5 Allergy status to narcotic agent; Z88.8 Allergy status to other drugs, medicaments and biological substances; Z91.048 Other nonmedicinal substance allergy status; Z79.4 Long term (current) use of insulin; Z79.899 Other long term (current) drug therapy; Z79.890 Hormone replacement therapy; J45.909 Unspecified asthma, uncomplicated
CPT/HCPCS: 80053; 82947; 83690; 85025; J1815

== ENCOUNTER 2024-08-15 09:58 | Emergency (ER) | payer MEDICARE, OTHER ==
[~2024-08-15] VITALS: Ht 172.7 cm; Wt 132.0 kg
[2024-08-15] MEDS ORDERED: Insulin Glargine-Yfgn 100 Unit/mL 3 ML SYR SC ONE (10:10)
[2024-08-15] MEDS ORDERED: Propranolol HCL 20 MG TAB PO ONE (10:40)
[2024-08-15 12:30] VITALS: BP 179/93
== END 2024-08-15 13:01 | disposition home or self-care (01) ==
LOC: ER 09:58
DX: Z76.89 Persons encountering health services in other specified circumstances (principal); E11.9 Type 2 diabetes mellitus without complications; J45.909 Unspecified asthma, uncomplicated; E03.9 Hypothyroidism, unspecified; E78.5 Hyperlipidemia, unspecified; K21.9 Gastro-esophageal reflux disease without esophagitis; Z91.030 Bee allergy status; Z88.5 Allergy status to narcotic agent; Z88.8 Allergy status to other drugs, medicaments and biological substances; Z91.048 Other nonmedicinal substance allergy status; Z79.899 Other long term (current) drug therapy; Z79.890 Hormone replacement therapy; Z79.4 Long term (current) use of insulin
CPT/HCPCS: 99281; A9270; J1815

== ENCOUNTER 2024-10-13 16:33 | Emergency (ER) | payer MEDICARE, OTHER ==
[~2024-10-13] VITALS: Ht 172.7 cm; Wt 127.0 kg
[2024-10-13] MEDS ORDERED: Ondansetron HCl 2 MG / ML 2ML Vial IV PRN (18:20)
[2024-10-13 19:23] LABS: Albumin, Blood 3.6 g/dL (3.4-5.0); Albumin/Globulin Ratio 1.2 (0.8-1.8); Bilirubin, Total 0.4 mg/dL (0.1-1.0); Bun/Creatinine Ratio 25.4 (12.0-20.0); Creatinine, Blood 1.34 mg/dL (0.40-1.00); Globulin, Blood 3.1 g/dL (2.2-4.0); Potassium, Blood 3.8 mmol/L (3.5-5.5); Total Protein, Blood 6.7 g/dL (6.4-8.2)
[2024-10-13 20:22] VITALS: BP 144/85
[2024-10-13] MEDS ORDERED: Ipratropium/Albuterol SulF 2.5-0.5MG/3 ML Amp INH ONE (20:30)
[2024-10-13 20:31] LABS: BASOPHILS ABSOLUTE AUTO 0.02 K/mm3 (0.00-0.23); BASOPHILS PERCENT AUTO 0 % (0-2); EOSINOPHILS ABSOLUTE AUTO 0.01 K/mm3 (0.00-0.68); EOSINOPHILS PERCENT AUTO 0 % (0-6); Hematocrit 41.8 % (33.0-51.0); Hemoglobin 14.2 g/dL (11.5-16.0); IMMATURE GRAN ABSOLUTE AUTO 0.06 K/mm3 (0.00-0.10); IMMATURE GRAN PERCENT AUTO 1 % (0-1); LYMPHOCYTES ABSOLUTE AUTO 1.13 K/mm3 (0.84-5.20); LYMPHOCYTES PERCENT AUTO 14 % (21-46); MONOCYTES ABSOLUTE AUTO 0.27 K/mm3 (0.16-1.47); MONOCYTES PERCENT AUTO 3 % (4-13); Mean Corpuscular HGB 30.9 pg (26.0-34.0); Mean Corpuscular Volume 91 fL (80-100); Mean Platelet Volume 11.6 fL (9.1-12.4); NEUTROPHILS ABSOLUTE AUTO 6.53 K/mm3 (1.96-9.15); NEUTROPHILS PERCENT AUTO 82 % (41-73); Platelet Count 186 K/mm3 (150-400); RDW Standard Deviation 43.4 fL (35.1-46.3); Red Blood Cell Count 4.59 M/mm3 (3.80-5.20); White Blood Cell Count 8.02 K/mm3 (4.00-11.30)
[2024-10-13] MEDS ORDERED: Prednisone20 MG PO (21:43)
== END 2024-10-13 21:56 | disposition home or self-care (01) ==
LOC: ER 16:33
PROVIDERS: Student in an Organized Health Care Education/Training Program
DX: J44.9 Chronic obstructive pulmonary disease, unspecified (principal); J45.901 Unspecified asthma with (acute) exacerbation; E03.9 Hypothyroidism, unspecified; E11.22 Type 2 diabetes mellitus with diabetic chronic kidney disease; N18.30 Chronic kidney disease, stage 3 unspecified; G43.909 Migraine, unspecified, not intractable, without status migrainosus; E78.00 Pure hypercholesterolemia, unspecified; J06.9 Acute upper respiratory infection, unspecified; E11.40 Type 2 diabetes mellitus with diabetic neuropathy, unspecified; G47.30 Sleep apnea, unspecified; M19.90 Unspecified osteoarthritis, unspecified site; K21.9 Gastro-esophageal reflux disease without esophagitis; Z79.899 Other long term (current) drug therapy; Z79.4 Long term (current) use of insulin; Z91.030 Bee allergy status; Z91.048 Other nonmedicinal substance allergy status; Z88.5 Allergy status to narcotic agent; Z88.8 Allergy status to other drugs, medicaments and biological substances
CPT/HCPCS: 71046; 80053; 83690; 83880; 84484; 85025; 93005; 93010; 94640; 94664; 96374; 96375; 99285-25; A9270; J0360; J1100; J1940

== ENCOUNTER 2024-11-15 16:40 | Emergency (ER) | payer MEDICARE, OTHER ==
[~2024-11-15] VITALS: Ht 172.7 cm; Wt 104.3 kg
[~2024-11-15 16:40] MED LIST changes: +Prednisone20 MG PO
[2024-11-15 17:27] LABS: CORONAVIRUS COVID-19 AG Negative (NEGATIVE); INFLUENZA A AG Negative (NEGATIVE); INFLUENZA B AG Negative (NEGATIVE)
[2024-11-15 18:46] LABS: BASOPHILS ABSOLUTE AUTO 0.06 K/mm3 (0.00-0.23); BASOPHILS PERCENT AUTO 1 % (0-2); EOSINOPHILS ABSOLUTE AUTO 0.09 K/mm3 (0.00-0.68); EOSINOPHILS PERCENT AUTO 1 % (0-6); Hematocrit 38.5 % (33.0-51.0); Hemoglobin 13.1 g/dL (11.5-16.0); IMMATURE GRAN ABSOLUTE AUTO 0.21 K/mm3 (0.00-0.10); IMMATURE GRAN PERCENT AUTO 2 % (0-1); LYMPHOCYTES ABSOLUTE AUTO 2.37 K/mm3 (0.84-5.20); LYMPHOCYTES PERCENT AUTO 24 % (21-46); MONOCYTES ABSOLUTE AUTO 0.79 K/mm3 (0.16-1.47); MONOCYTES PERCENT AUTO 8 % (4-13); Mean Corpuscular HGB 31.3 pg (26.0-34.0); Mean Corpuscular Volume 92 fL (80-100); NEUTROPHILS ABSOLUTE AUTO 6.51 K/mm3 (1.96-9.15); NEUTROPHILS PERCENT AUTO 65 % (41-73); RDW Coefficient Variation 12.9 % (11.7-14.2); RDW Standard Deviation 43.8 fL (35.1-46.3); Red Blood Cell Count 4.18 M/mm3 (3.80-5.20); White Blood Cell Count 10.03 K/mm3 (4.00-11.30)
[2024-11-15 18:52] LABS: Albumin, Blood 2.9 g/dL (3.4-5.0); Albumin/Globulin Ratio 0.7 (0.8-1.8); Bilirubin, Total 0.9 mg/dL (0.1-1.0); Bun/Creatinine Ratio 26.4 (12.0-20.0); Calcium, Blood 9.9 mg/dL (8.5-10.1); Creatinine, Blood 0.95 mg/dL (0.40-1.00); Globulin, Blood 3.9 g/dL (2.2-4.0); Potassium, Blood 4.4 mmol/L (3.5-5.5); Total Protein, Blood 6.8 g/dL (6.4-8.2)
[2024-11-15 19:38] LABS: Mean Platelet Volume 11.5 fL (9.1-12.4); Platelet Count 181 K/mm3 (150-400)
[2024-11-15 20:10] LABS: Source, Urine Clean Catch
[2024-11-15 20:16] LABS: Appearance, Urine Turbid (Clear); Blood, Urine 5+ (Neg); Color, Urine Brown (P-Yellow); Glucose Qualitative, Urine 1+ (Neg); Ketones, Urine 1+ (Neg); Leukocyte Esterase, Urine 3+ (Neg); Nitrite, Urine Pos (Neg); Protein, Urine 3+ (Neg); Specific Gravity, Urine 1.015 (1.003-1.022); Urobilinogen, Urine 1+ (Normal)
[2024-11-15 20:32] LABS: Bilirubin, Urine 1+ (Neg)
[2024-11-15 20:34] LABS: Bacteria Many /hpf; Red Blood Cells, Urine TNTC /hpf (0-2); Squamous Epithelial Cells Few /hpf (Few)
[2024-11-15] MEDS ORDERED: CefTRIAXone Sodium 1,000 MG in NS 100 ML IV ONE (20:55)
[2024-11-15] MEDS ORDERED: CEPH500 PO (21:16)
[2024-11-15 21:20] VITALS: BP 167/72
== END 2024-11-15 22:04 | disposition home or self-care (01) ==
LOC: ER 16:40
PROVIDERS: Student in an Organized Health Care Education/Training Program
DX: N12 Tubulo-interstitial nephritis, not specified as acute or chronic (principal); E11.40 Type 2 diabetes mellitus with diabetic neuropathy, unspecified; E11.22 Type 2 diabetes mellitus with diabetic chronic kidney disease; N18.30 Chronic kidney disease, stage 3 unspecified; E78.5 Hyperlipidemia, unspecified; E03.9 Hypothyroidism, unspecified; Z88.1 Allergy status to other antibiotic agents; Z91.030 Bee allergy status; Z88.5 Allergy status to narcotic agent; Z88.8 Allergy status to other drugs, medicaments and biological substances; Z91.048 Other nonmedicinal substance allergy status; Z79.899 Other long term (current) drug therapy; Z79.890 Hormone replacement therapy; Z79.4 Long term (current) use of insulin
CPT/HCPCS: 71046; 74177; 80053; 81001; 83690; 85025; 87077; 87086; 87186; 87428-QW; 93005; 93010; 96374-59; 99285-25; J0696; Q9967

== ENCOUNTER → 2024-11-22 | Outpatient (CLI) | payer MEDICARE, OTHER ==
[~2024-11-22] MED LIST changes: +AMLO5 PO; +HUMALOG KW100 UNIT/1 SC; +LIDO700A20 TOP; +LIPITOR80 MG PO; +MAGNESIUM OXID500 MG PO; +MICONAZOLE NITR85 GM TOP; +POTCHL20ER PO
[2024-11-22 20:05] LABS: Bacterial Vaginosis PCR Negative (NEGATIVE); Candida Group, PCR NOT DETECTED (NOT DETECT)
[2024-11-23 00:05] LABS: Candida glabrata-krusei, PCR DETECTED (NOT DETECT)
[2024-11-25 14:08] LABS: APTIMA MEDIA TYPE Urine; C. TRACHOMATIS BY TMA Negative (Negative); N. GONORRHOEAE BY TMA Negative (Negative); SPECIMEN SOURCE Urine
== END | disposition home or self-care (01) ==
LOC: LAB SHORT 18:29 → LAB 18:29
PROVIDERS: Family Medicine
DX: R30.0 Dysuria (principal)
CPT/HCPCS: 81515; 87086; 87491; 87591

== ENCOUNTER 2024-12-16 18:25 | Observation (INO) | payer MEDICARE, OTHER ==
[~2024-12-16] VITALS: Ht 172.7 cm; Wt 124.8 kg
[~2024-12-16 18:25] MED LIST changes: -AMLO5 PO; -HUMALOG KW100 UNIT/1 SC; -LIDO700A20 TOP; -LIPITOR80 MG PO; -MAGNESIUM OXID500 MG PO; -MICONAZOLE NITR85 GM TOP; -POTCHL20ER PO
[2024-12-16 20:04] LABS: BASOPHILS ABSOLUTE AUTO 0.02 K/mm3 (0.00-0.23); BASOPHILS PERCENT AUTO 0 % (0-2); EOSINOPHILS ABSOLUTE AUTO 0.18 K/mm3 (0.00-0.68); EOSINOPHILS PERCENT AUTO 2 % (0-6); Hematocrit 43.5 % (33.0-51.0); Hemoglobin 14.6 g/dL (11.5-16.0); IMMATURE GRAN ABSOLUTE AUTO 0.02 K/mm3 (0.00-0.10); IMMATURE GRAN PERCENT AUTO 0 % (0-1); LYMPHOCYTES ABSOLUTE AUTO 1.72 K/mm3 (0.84-5.20); LYMPHOCYTES PERCENT AUTO 23 % (21-46); MONOCYTES PERCENT AUTO 5 % (4-13); Mean Corpuscular HGB 31.1 pg (26.0-34.0); Mean Corpuscular HGB Conc 33.6 g/dL (31.5-36.5); Mean Corpuscular Volume 93 fL (80-100); NEUTROPHILS ABSOLUTE AUTO 5.17 K/mm3 (1.96-9.15); NEUTROPHILS PERCENT AUTO 69 % (41-73); Platelet Count 164 K/mm3 (150-400); RDW Coefficient Variation 12.6 % (11.7-14.2); RDW Standard Deviation 43.1 fL (35.1-46.3); White Blood Cell Count 7.51 K/mm3 (4.00-11.30)
[2024-12-16 20:18] LABS: Source, Urine Clean Catch
[2024-12-16 20:26] LABS: Appearance, Urine Hazy (Clear); Bilirubin, Urine Neg (Neg); Blood, Urine Neg (Neg); Glucose Qualitative, Urine 4+ (Neg); Ketones, Urine Neg (Neg); Leukocyte Esterase, Urine 3+ (Neg); Nitrite, Urine Neg (Neg); Protein, Urine Neg (Neg); Specific Gravity, Urine 1.015 (1.003-1.022); Urobilinogen, Urine NORM (Normal)
[2024-12-16 20:36] LABS: Color, Urine Pale Yellow (P-Yellow)
[2024-12-16 20:37] LABS: Bacteria Many /hpf; Red Blood Cells, Urine 0-2 /hpf (0-2); Squamous Epithelial Cells Few /hpf (Few); White Blood Cells, Urine 25-50 /hpf (0-5); Yeast/Fungi Urine Few /hpf
[2024-12-16 20:40] LABS: Salicylate <1.7 mg/dL (2.8-20.0)
[2024-12-16 20:41] LABS: Acetaminophen, Random <2.0 ug/mL (10.0-30.0); Alanine Aminotransfer (ALT/SGP 27 U/L (12-78); Albumin, Blood 3.8 g/dL (3.4-5.0); Albumin/Globulin Ratio 1.2 (0.8-1.8); Alk Phos 122 U/L (50-136); Anion Gap 8 mmol/L (3-11); Aspartate Aminotrans (AST/SGOT 22 U/L (12-37); Bilirubin, Total 0.5 mg/dL (0.1-1.0); Blood Urea Nitrogen 39 mg/dL (8-24); Bun/Creatinine Ratio 34.5 (12.0-20.0); CO2, Blood 27 mmol/L (21-32); Calcium, Blood 10.2 mg/dL (8.5-10.1); Chloride, Blood 105 mmol/L (98-108); Creatinine, Blood 1.13 mg/dL (0.40-1.00); Ethanol (Alcohol), Blood, Med <3 mg/dL; Globulin, Blood 3.2 g/dL (2.2-4.0); Glomerular Filtration Rate 54 (60-); Glucose, Blood 416 mg/dL (70-99); Potassium, Blood 3.7 mmol/L (3.5-5.5); Sodium, Blood 136 mmol/L (136-145)
[2024-12-16 21:01] LABS: U Amphetamine Screen Not Detected; U Barbituate Screen Not Detected; U Benzodiazapine Screen Not Detected; U Buprenorphine Screen Not Detected; U Cannabinoids Screen Not Detected; U Cocaine Screen Not Detected; U Methadone Screen Not Detected; U Methamphetamine Screen Not Detected; U Opiates Screen Not Detected; U Oxycodone Screen Not Detected; U Phencyclidine Screen Not Detected
[2024-12-16] MEDS ORDERED: CefTRIAXone Sodium 1,000 MG in NS 100 ML IV ONE (21:35)
[2024-12-16 21:47] LABS: Salicylate <1.7 mg/dL (2.8-20.0)
[2024-12-16 21:55] LABS: Acetaminophen, Random <2.0 ug/mL (10.0-30.0); Ethanol (Alcohol), Blood, Med <3 mg/dL
[2024-12-17] MEDS ORDERED: NS 1,000 ML IV SCH ×2 (02:20→03:55)
[2024-12-17] MEDS ORDERED: Acetaminophen 325 MG TABLET PO PRN (03:50)
[2024-12-17] MEDS ORDERED: FLU VACC TS2024-25(6MOS UP)/PF 45 MCG/0.5 ML SYRINGE IM ONE (03:50)
[2024-12-17] MEDS ORDERED: FentaNYL Citrate 50 MCG/ML 2 ML Injection IV PRN (03:50)
[2024-12-17] MEDS ORDERED: Ondansetron HCl 2 MG / ML 2ML Vial IV PRN (03:55)
[2024-12-17] MEDS ORDERED: Insulin Glargine-Yfgn 100 Unit/mL 3 ML SYR SC SCH (04:00)
[2024-12-17] MEDS ORDERED: Insulin Human Lispro 100 Units/ML 3ML Syringe SC SCH (07:30)
[2024-12-17] MEDS ORDERED: Enoxaparin 40 MG/0.4 ML SYR SC SCH (09:00)
[2024-12-17] MEDS ORDERED: Cephalexin Monohydrate 500 MG Cap PO SCH ×2 (09:00)
[2024-12-17 10:08] LABS: BASOPHILS ABSOLUTE AUTO 0.02 K/mm3 (0.00-0.23); BASOPHILS PERCENT AUTO 0 % (0-2); EOSINOPHILS ABSOLUTE AUTO 0.29 K/mm3 (0.00-0.68); EOSINOPHILS PERCENT AUTO 5 % (0-6); Hematocrit 39.4 % (33.0-51.0); Hemoglobin 13.6 g/dL (11.5-16.0); IMMATURE GRAN ABSOLUTE AUTO 0.04 K/mm3 (0.00-0.10); IMMATURE GRAN PERCENT AUTO 1 % (0-1); LYMPHOCYTES ABSOLUTE AUTO 1.75 K/mm3 (0.84-5.20); LYMPHOCYTES PERCENT AUTO 27 % (21-46); MONOCYTES ABSOLUTE AUTO 0.42 K/mm3 (0.16-1.47); MONOCYTES PERCENT AUTO 7 % (4-13); Mean Corpuscular HGB 31.8 pg (26.0-34.0); Mean Corpuscular HGB Conc 34.5 g/dL (31.5-36.5); Mean Corpuscular Volume 92 fL (80-100); Mean Platelet Volume 11.7 fL (9.1-12.4); NEUTROPHILS ABSOLUTE AUTO 3.96 K/mm3 (1.96-9.15); NEUTROPHILS PERCENT AUTO 61 % (41-73); Platelet Count 163 K/mm3 (150-400); RDW Coefficient Variation 12.6 % (11.7-14.2); RDW Standard Deviation 42.8 fL (35.1-46.3); Red Blood Cell Count 4.28 M/mm3 (3.80-5.20); White Blood Cell Count 6.48 K/mm3 (4.00-11.30)
[2024-12-17 10:27] LABS: Albumin, Blood 3.6 g/dL (3.4-5.0); Albumin/Globulin Ratio 1.2 (0.8-1.8); Bilirubin, Total 0.6 mg/dL (0.1-1.0); Bun/Creatinine Ratio 32.8 (12.0-20.0); Calcium, Blood 9.8 mg/dL (8.5-10.1); Creatinine, Blood 0.95 mg/dL (0.40-1.00); Globulin, Blood 2.9 g/dL (2.2-4.0); Potassium, Blood 3.8 mmol/L (3.5-5.5); Total Protein, Blood 6.5 g/dL (6.4-8.2)
[2024-12-17] MEDS ORDERED: HydrALAZINE HCl 20 MG / ML 1ML Vial IV PRN (12:25)
[2024-12-17] MEDS ORDERED: LORazepam 2 MG/ML 1ML Injection IM ONE (13:20)
[2024-12-17] MEDS ORDERED: OLANZapine 10 MG Vial IM ONE (13:20)
[2024-12-17 15:03] VITALS: BP 166/89
[2024-12-17] MEDS ORDERED: NS 250 ML IV PRN (15:15)
--- NOTE | 2024-12-17 17:57 | NUR ---
SHIFT SUMMARY PT ADMITTED FROM ER THIS SHIFT FOR SI. CONSULT CALLED TO PSCHIATRY WHOM EVALUATED PT AT BEDSIDE AND DC SI PRECAUTIONS AND SITTER. PT NOTED TO BE A&O X4 AND SBA WITH FWW. PT SWITCHED TO DNR STATUS THIS SHIFT. PT NOTED TO BE CONT/INCONT. PT NOTED TO CALL APPROPRIATE AND BE COOPERATIVE WITH CARE.
[2024-12-17 19:59] VITALS: BP 224/93
[2024-12-17 20:03] VITALS: BP 225/101
[2024-12-17 20:13] VITALS: BP 210/82
[2024-12-17] MEDS ORDERED: CefTRIAXone Sodium 1,000 MG in NS 100 ML IV SCH (21:00)
[2024-12-17 21:50] VITALS: BP 205/73
[2024-12-17] MEDS ORDERED: HydrALAZINE HCl 25 MG Tab PO PRN (22:15)
--- NOTE | 2024-12-18 03:08 | NUR ---
SHIFT SUMMARY PATIENT HAS BEEN AWAKE FOR THE FIRST HALF OF THE SHIFT. SBP WAS ABOVE 200 IN SPITE OF THE IV HYDRALAZINE. MD WAS NOTIFIED AND HYDRALAZINE WAS CHANGED TO ORAL AND DOSE WAS INCREASED. PATIENT IS SLEEPING AT THIS TIME. PATIENT CLEARED FOR SUICIDAL IDEATION AND SITTER WAS CANCELLED. PATIENT HAS BEEN PLEASANT AND COOPERATIVE. SHE IS ORIETED X4 AND USING HER CALL LIGHT APPROPRIATELY. SAFETY PRECAUTIONS ARE BEING MAINTAINED.
[2024-12-18 04:57] VITALS: BP 194/101
[2024-12-18 04:58] VITALS: BP 219/90
[2024-12-18 07:29] VITALS: BP 223/86
[2024-12-18] MEDS ORDERED: Insulin Human Lispro 100 Units/ML 3ML Syringe SC SCH ×2 (07:30→11:30)
[2024-12-18] MEDS ORDERED: Insulin NPH 100 Unit / ML 10ML Vial SC ONE (07:45)
[2024-12-18] MEDS ORDERED: Insulin NPH 10 Unit/0.1ML (Single Dose) SC ONE (08:00)
[2024-12-18] MEDS ORDERED: CloNIDine 0.1 MG Tab PO SCH (08:00)
[2024-12-18] MEDS ORDERED: Losartan Potassium 50 MG Tab PO SCH (09:00)
[2024-12-18] MEDS ORDERED: AmLODIPine Besylate 5 MG Tab PO STA (11:50)
[2024-12-18 12:00] VITALS: BP 193/98
[2024-12-18] MEDS ORDERED: Losartan Potassium 50 MG Tab PO STA (12:44)
[2024-12-18] MEDS ORDERED: AMLO5 PO (13:16)
[2024-12-18] MEDS ORDERED: LOSA50 PO (13:17)
--- NOTE | 2024-12-18 13:51 | NUR ---
DISCHARGE SUMMARY PT DC THIS SHIFT PT WAS ESCORTED OUT TO PRIVATE VEHICLE VIA WHEELCHAIR BY FARMWORKER [employer]. DC INSTRUCTION GONE OVER WITH PT WHOM STATED UNDERSTANDING. PT WAS ALSO GIVEN A COMMUNITY RESOURSE PACKET RE HOUSING.
[2024-12-18] MEDS ORDERED: Trospium Chloride 20 MG Tab PO SCH (16:30)
[2024-12-18] MEDS ORDERED: Insulin Glargine-Yfgn 100 Unit/mL 3 ML SYR SC SCH (21:00)
[2024-12-28] MEDS ORDERED: LEVSOD100 PO (18:24)
== END 2024-12-18 13:50 | disposition home or self-care (01) ==
LOC: ER 18:25 → EOR 18:26 → MEDS 18:26 → EOR 18:26 → ER 18:26 → ERHOLD 18:26 → EDBEDREQ 12-17 04:28 → EDBEDREQSVC 12-17 10:06 → MEDS 12-17 14:35
PROVIDERS: Internal Medicine; Student in an Organized Health Care Education/Training Program; ADMIT Student in an Organized Health Care Education/Training Program
DX: F43.23 Adjustment disorder with mixed anxiety and depressed mood (principal); R45.851 Suicidal ideations; I16.0 Hypertensive urgency; N12 Tubulo-interstitial nephritis, not specified as acute or chronic; E11.65 Type 2 diabetes mellitus with hyperglycemia; I12.9 Hypertensive chronic kidney disease with stage 1 through stage 4 chronic kidney disease, or unspecified chronic kidney disease; E11.22 Type 2 diabetes mellitus with diabetic chronic kidney disease; N18.30 Chronic kidney disease, stage 3 unspecified; E11.40 Type 2 diabetes mellitus with diabetic neuropathy, unspecified; E03.9 Hypothyroidism, unspecified; K21.9 Gastro-esophageal reflux disease without esophagitis; E66.9 Obesity, unspecified; Z68.41 Body mass index [BMI] 40.0-44.9, adult; Z59.02 Unsheltered homelessness; Z79.1 Long term (current) use of non-steroidal anti-inflammatories (NSAID); Z79.4 Long term (current) use of insulin; Z79.899 Other long term (current) drug therapy; Z88.5 Allergy status to narcotic agent; Z88.8 Allergy status to other drugs, medicaments and biological substances; Z91.038 Other insect allergy status; Z91.048 Other nonmedicinal substance allergy status; Z90.710 Acquired absence of both cervix and uterus; Z90.49 Acquired absence of other specified parts of digestive tract
CPT/HCPCS: 74177; 80053; 80320; 81001; 81025; 82947; 85025; 87086; 93005; 93010; 96365; 96372; 96375; 99285-25; A9270; G0378; G0480; J0360; J0696; J1650; J1815; J3010; Q9967

== ENCOUNTER → 2024-12-20 | Outpatient (CLI) | payer MEDICARE, OTHER ==
[~2024-12-20] MED LIST changes: +AMLO5 PO
== END ==
LOC: LAB SHORT 11:13 → LAB 11:13
DX: R30.0 Dysuria (principal)
CPT/HCPCS: 87086

== ENCOUNTER 2024-12-23 21:41 | Inpatient (IN) | payer MEDICARE, OTHER ==
[~2024-12-23] VITALS: Ht 172.7 cm; Wt 134.4 kg
[2024-12-23 23:36] LABS: BASOPHILS ABSOLUTE AUTO 0.02 K/mm3 (0.00-0.23); BASOPHILS PERCENT AUTO 0 % (0-2); EOSINOPHILS ABSOLUTE AUTO 0.04 K/mm3 (0.00-0.68); EOSINOPHILS PERCENT AUTO 0 % (0-6); Hematocrit 37.4 % (33.0-51.0); Hemoglobin 13.2 g/dL (11.5-16.0); IMMATURE GRAN PERCENT AUTO 1 % (0-1); LYMPHOCYTES ABSOLUTE AUTO 0.63 K/mm3 (0.84-5.20); LYMPHOCYTES PERCENT AUTO 6 % (21-46); MONOCYTES ABSOLUTE AUTO 0.86 K/mm3 (0.16-1.47); MONOCYTES PERCENT AUTO 8 % (4-13); Mean Corpuscular HGB Conc 35.3 g/dL (31.5-36.5); Mean Corpuscular Volume 88 fL (80-100); Mean Platelet Volume 12.1 fL (9.1-12.4); NEUTROPHILS ABSOLUTE AUTO 8.87 K/mm3 (1.96-9.15); NEUTROPHILS PERCENT AUTO 84 % (41-73); Platelet Count 121 K/mm3 (150-400); RDW Coefficient Variation 11.8 % (11.7-14.2); RDW Standard Deviation 37.9 fL (35.1-46.3); Red Blood Cell Count 4.26 M/mm3 (3.80-5.20); White Blood Cell Count 10.52 K/mm3 (4.00-11.30)
[2024-12-24] VITALS (20 sets, daily range): BP systolic 106–179; BP diastolic 50–114
[2024-12-24] LABS: CORONAVIRUS COVID-19 AG Negative (NEGATIVE); INFLUENZA A AG Negative (NEGATIVE); INFLUENZA B AG Negative (NEGATIVE)
[2024-12-24 00:03] LABS: Magnesium, Blood 1.3 mg/dL (1.6-2.4)
[2024-12-24 00:47] LABS: Albumin, Blood 3.3 g/dL (3.4-5.0); Bilirubin, Total 1.1 mg/dL (0.1-1.0); Bun/Creatinine Ratio 20.1 (12.0-20.0); Calcium, Blood 9.8 mg/dL (8.5-10.1); Creatinine, Blood 3.83 mg/dL (0.40-1.00); Globulin, Blood 3.3 g/dL (2.2-4.0); Total Protein, Blood 6.6 g/dL (6.4-8.2)
[2024-12-24] MEDS ORDERED: Lactated Ringer's 1,000 ML IV ONE (00:50)
[2024-12-24 01:17] LABS: Base Excess Venous -12.6 mmol/L; Bicarbonate Venous 15.2 mmol/L (24.0-30.0); PCO2 Venous 29.2 mmHg (38-42); pH Blood Venous 7.29 (7.34-7.37)
[2024-12-24 01:36] LABS: Beta-hydroxybutyrate 13.9 mg/dL (0.2-2.8)
[2024-12-24] MEDS ORDERED: FLU VACC TS2024-25(6MOS UP)/PF 45 MCG/0.5 ML SYRINGE IM ONE (02:10)
[2024-12-24] MEDS ORDERED: Magnesium Sulf 2 GM/Water 50ML 50 ML IV ONE (02:20)
[2024-12-24] MEDS ORDERED: Insulin Human Regular 100 UNIT in NS 100 ML IV SCH (02:20)
[2024-12-24] MEDS ORDERED: NS KCl 20mEq 1,000 ML IV SCH ×2 (03:00→08:00)
[2024-12-24 03:37] LABS: Bun/Creatinine Ratio 19.9 (12.0-20.0); Calcium, Blood 9.8 mg/dL (8.5-10.1); Creatinine, Blood 3.96 mg/dL (0.40-1.00); Phosphorus, Blood 3.5 mg/dL (2.5-4.9); Potassium, Blood 4.7 mmol/L (3.5-5.5)
[2024-12-24 03:51] LABS: Influenza A, PCR NEGATIVE (NEGATIVE); Influenza B, PCR NEGATIVE (NEGATIVE); Resp Syncytial Virus, PCR NEGATIVE (NEGATIVE); SARS-Cov-2 (COVID-19) PCR, MMC NEGATIVE (NEGATIVE)
[2024-12-24 03:59] LABS: Source, Urine Clean Catch
[2024-12-24 04:02] LABS: Bilirubin, Urine Neg (Neg); Blood, Urine 4+ (Neg); Glucose Qualitative, Urine 4+ (Neg); Ketones, Urine Neg (Neg); Leukocyte Esterase, Urine 3+ (Neg); Nitrite, Urine Neg (Neg); Protein, Urine 2+ (Neg); Urobilinogen, Urine NORM (Normal)
[2024-12-24 04:33] LABS: Appearance, Urine Cloudy (Clear); Color, Urine Yellow (P-Yellow)
[2024-12-24 04:35] LABS: Bacteria Mod /hpf; Red Blood Cells, Urine 0-2 /hpf (0-2); Squamous Epithelial Cells Mod /hpf (Few); White Blood Cells, Urine 50-100 /hpf (0-5); Yeast/Fungi Urine Many /hpf
[2024-12-24 06:21] LABS: Bun/Creatinine Ratio 19.7 (12.0-20.0); Creatinine, Blood 3.81 mg/dL (0.40-1.00); Potassium, Blood 5.9 mmol/L (3.5-5.5)
[2024-12-24] MEDS ORDERED: Lactated Ringer's 1,000 ML IV SCH ×2 (06:35→08:00)
[2024-12-24 07:29] LABS: Bun/Creatinine Ratio 21.6 (12.0-20.0); Calcium, Blood 9.4 mg/dL (8.5-10.1); Creatinine, Blood 3.33 mg/dL (0.40-1.00)
[2024-12-24] MEDS ORDERED: Heparin Sodium,Porcine 5,000 UNIT/0.5 ML SDV SC SCH (08:00)
[2024-12-24] MEDS ORDERED: Heparin Sodium 5000 Units/ML 1ML MDV SC SCH (09:11)
[2024-12-24 10:06] LABS: Bun/Creatinine Ratio 21.2 (12.0-20.0); Calcium, Blood 9.6 mg/dL (8.5-10.1); Creatinine, Blood 3.35 mg/dL (0.40-1.00); Potassium, Blood 4.7 mmol/L (3.5-5.5)
[2024-12-24 12:05] LABS: Bun/Creatinine Ratio 22.7 (12.0-20.0); Calcium, Blood 9.6 mg/dL (8.5-10.1); Creatinine, Blood 2.73 mg/dL (0.40-1.00); Potassium, Blood 3.6 mmol/L (3.5-5.5)
[2024-12-24] MEDS ORDERED: D5W-1/2NS KCl 20mEq 1,000 ML IV SCH (13:00)
[2024-12-24 14:10] LABS: Bun/Creatinine Ratio 24.7 (12.0-20.0); Calcium, Blood 9.8 mg/dL (8.5-10.1); Creatinine, Blood 2.31 mg/dL (0.40-1.00); Potassium, Blood 4.1 mmol/L (3.5-5.5)
[2024-12-24] MEDS ORDERED: Insulin Human Lispro 100 Units/ML 3ML Syringe SC SCH (16:30)
[2024-12-24] MEDS ORDERED: Magnesium Sulf 2 GM/Water 50ML 50 ML IV STA (18:13)
[2024-12-24] MEDS ORDERED: Insulin Glargine-Yfgn 100 Unit/mL 3 ML SYR SC SCH (21:00)
[2024-12-24] MEDS ORDERED: Acetaminophen 325 MG TABLET PO PRN (21:20)
[2024-12-25] VITALS: BP 121/49
[2024-12-25 00:35] VITALS: BP 130/56
--- NOTE | 2024-12-25 01:28 | NUR ---
TRANSFER SUMMARY PT A/OX4, VSS. ON ROOM AIR. AFEBRILE. REPORT CALLED TO ACCEPTING NURSE, QUESTIONS ADDRESSED. PT WAS ESCORTED WITH HER BELONGINGS VIA BED WITH REWINDER OPERATOR. PTS PERSONAL WALKER WAS TAKEN TO NEW ROOM ON MEDICAL FLOOR. NO ACUTE EVENTS.
[2024-12-25 03:56] VITALS: BP 174/77
[2024-12-25 06:04] LABS: BASOPHILS ABSOLUTE AUTO 0.01 K/mm3 (0.00-0.23); BASOPHILS PERCENT AUTO 0 % (0-2); EOSINOPHILS ABSOLUTE AUTO 0.06 K/mm3 (0.00-0.68); EOSINOPHILS PERCENT AUTO 1 % (0-6); Hematocrit 32.6 % (33.0-51.0); Hemoglobin 11.3 g/dL (11.5-16.0); IMMATURE GRAN ABSOLUTE AUTO 0.08 K/mm3 (0.00-0.10); IMMATURE GRAN PERCENT AUTO 2 % (0-1); LYMPHOCYTES ABSOLUTE AUTO 0.72 K/mm3 (0.84-5.20); LYMPHOCYTES PERCENT AUTO 17 % (21-46); MONOCYTES ABSOLUTE AUTO 0.47 K/mm3 (0.16-1.47); MONOCYTES PERCENT AUTO 11 % (4-13); Mean Corpuscular HGB 30.7 pg (26.0-34.0); Mean Corpuscular HGB Conc 34.7 g/dL (31.5-36.5); Mean Corpuscular Volume 89 fL (80-100); Mean Platelet Volume 12.3 fL (9.1-12.4); NEUTROPHILS ABSOLUTE AUTO 2.82 K/mm3 (1.96-9.15); NEUTROPHILS PERCENT AUTO 68 % (41-73); Platelet Count 122 K/mm3 (150-400); RDW Coefficient Variation 12.2 % (11.7-14.2); RDW Standard Deviation 39.8 fL (35.1-46.3); Red Blood Cell Count 3.68 M/mm3 (3.80-5.20); White Blood Cell Count 4.16 K/mm3 (4.00-11.30)
[2024-12-25 06:24] LABS: Bun/Creatinine Ratio 28.9 (12.0-20.0); Calcium, Blood 9.2 mg/dL (8.5-10.1); Creatinine, Blood 1.52 mg/dL (0.40-1.00); Magnesium, Blood 1.6 mg/dL (1.6-2.4); Potassium, Blood 3.7 mmol/L (3.5-5.5)
[2024-12-25 07:59] VITALS: BP 144/59
[2024-12-25] MEDS ORDERED: Levothyroxine Sodium 0.1 MG Tab PO SCH (08:34)
[2024-12-25] MEDS ORDERED: Levothyroxine Sodium 0.088 MG Tab PO SCH (08:35)
--- NOTE | 2024-12-25 09:00 | NUR ---
pt laying in bed sleepy, wakes easily is pleasant and cooperative with care, follows commands well, denies pain, lungs are clear dim in bases, resp even and unlabored, no cough noted, on r/a, hrr, 3-4+ edema noted to b/l le, cap refill<3 sec, vs stable, afebrile, x2 piv sites are clear and patent, btx4, abd round soft nontender, voids via soto cath due to retention, skin has some yeast to folds, maew, general weakness, call light in reach.
[2024-12-25] MEDS ORDERED: Propranolol HCL 20 MG TAB PO SCH (12:00)
[2024-12-25] MEDS ORDERED: Losartan Potassium 50 MG Tab PO SCH (12:00)
[2024-12-25] MEDS ORDERED: AmLODIPine Besylate 5 MG Tab PO SCH (12:00)
[2024-12-25 15:17] VITALS: BP 152/72
[2024-12-25] MEDS ORDERED: Mag Sulfate 1 GM/D5% 100ML 100 ML IV STA (15:49)
[2024-12-25] MEDS ORDERED: Insulin Human Lispro 100 Units/ML 3ML Syringe SC SCH (16:30)
--- NOTE | 2024-12-25 17:49 | NUR ---
pt resting in bed throughout the day, states she can't stand, therapy worked with her and she couldn't but states she's an ambulator at baseline. no further changes this shift, call light in reach.
[2024-12-25 17:57] LABS: Bun/Creatinine Ratio 25.9 (12.0-20.0); Calcium, Blood 9.1 mg/dL (8.5-10.1); Creatinine, Blood 1.35 mg/dL (0.40-1.00); Potassium, Blood 3.8 mmol/L (3.5-5.5)
[2024-12-25 19:26] VITALS: BP 152/70
[2024-12-25] MEDS ORDERED: Miconazole Nitrate 2% 85 GM PWD TOP SCH (21:00)
[2024-12-26 00:17] VITALS: BP 155/67
[2024-12-26 03:38] VITALS: BP 153/69
[2024-12-26 06:10] LABS: Hematocrit 34.6 % (33.0-51.0); Hemoglobin 11.9 g/dL (11.5-16.0); Mean Corpuscular HGB 30.9 pg (26.0-34.0); Mean Corpuscular HGB Conc 34.4 g/dL (31.5-36.5); Mean Corpuscular Volume 90 fL (80-100); Platelet Count 137 K/mm3 (150-400); RDW Coefficient Variation 12.2 % (11.7-14.2); RDW Standard Deviation 40.4 fL (35.1-46.3); Red Blood Cell Count 3.85 M/mm3 (3.80-5.20); White Blood Cell Count 4.24 K/mm3 (4.00-11.30)
--- NOTE | 2024-12-26 06:34 | NUR ---
SHIFT SUMMARY A&OX4, CALLS APPROPRIATELY TO VOICE NEEDS. CBG AT H.S. 236 NOT REQUIRING ANY SLIDING SCALE COVERAGE- RECEIVED LANTUS AT HS PER MAR. REPORTS DID NOT SLEEP WELL. ACETAMINOPHEN X 2 FOR BACK PAIN PER MAR. SKIN IMPROVED WITH MICONAZOLE POWDER. HAVING LOOSE STOOLS (CONTINENT). JOHNSON DRAINING CLOUDY YELLOW URINE, FLUIDS ENCOURAGED. CONT. TO C/O GENERALIZED WEAKNESS. LEs REMAIN VERY EDEMATOUS. VSS.
[2024-12-26 06:35] LABS: Albumin, Blood 2.4 g/dL (3.4-5.0); Albumin/Globulin Ratio 0.8 (0.8-1.8); Bilirubin, Total 0.4 mg/dL (0.1-1.0); Bun/Creatinine Ratio 23.9 (12.0-20.0); Calcium, Blood 9.2 mg/dL (8.5-10.1); Creatinine, Blood 1.09 mg/dL (0.40-1.00); Globulin, Blood 2.9 g/dL (2.2-4.0); Magnesium, Blood 1.4 mg/dL (1.6-2.4); Potassium, Blood 3.4 mmol/L (3.5-5.5); Total Protein, Blood 5.3 g/dL (6.4-8.2)
[2024-12-26 07:24] VITALS: BP 176/68
[2024-12-26] MEDS ORDERED: Magnesium Sul 4 GM/Water100 ML 100 ML IV ONE (08:45)
[2024-12-26] MEDS ORDERED: Enoxaparin 40 MG/0.4 ML SYR SC SCH (09:00)
[2024-12-26 10:59] VITALS: BP 135/75
[2024-12-26] MEDS ORDERED: Potassium Chloride 20 MEQ TabCR PO ONE (11:00)
[2024-12-26] MEDS ORDERED: HydroCHLOROthiazide 25 mg Tab PO SCH (11:00)
[2024-12-26 12:03] VITALS: BP 172/80
[2024-12-26 19:30] VITALS: BP 169/92
--- NOTE | 2024-12-26 19:32 | NUR ---
SHIFT SUMMARY PT IS A/OX4. 1 PERSON ASSIST TO THE BATHROOM. ELIZABETH REMOVED THIS AFTERNOON, PT VOIDING. ON TELE RUNNING NORMAL SINUS RYTHYM. BLOOD SUGARS IN THE 100 AND 200'S THIS SHIFT. PT CALLS APPROPRIATELY USING THE CALL LIGHT.
[2024-12-26] MEDS ORDERED: Insulin Glargine-Yfgn 100 Unit/mL 3 ML SYR SC SCH (21:00)
[2024-12-27] VITALS (7 sets, daily range): BP systolic 141–175; BP diastolic 65–85
--- NOTE | 2024-12-27 05:50 | NUR ---
SHIFT SUMMARY 64 YR F ADMITTED ON 12/24/24. FULL CODE. NO ACUTE CHANGES THIS SHIFT. EVENING CBG WAS 185 REQUIRING NO FAST ACTING INSULIN. PT C/O BACK PAIN AND WAS MEDICATED TWICE THIS SHIFT W/ TYLENOL. SHE CALLS APPROPRIATELY FOR ASSISTANCE BUT DID STATE TO THE FURNITURE FINISHER THAT SHE IS RELUCTANT TO DO THINGS FOR HERSELF SHE FEELS THIS WILL EXPIDITE HER DISCHARGE, AND SHE IS WORRIED ABOUT LACK OF RESOURCES AFTER DISCHARGE. NO ADVERSE EVENTS REPORTED BY CEMETERY WORKER THIS SHIFT. BED IN LOW POSITION AND CALL LIGHT IN REACH.
[2024-12-27 06:00] LABS: BASOPHILS ABSOLUTE AUTO 0.03 K/mm3 (0.00-0.23); BASOPHILS PERCENT AUTO 1 % (0-2); EOSINOPHILS ABSOLUTE AUTO 0.17 K/mm3 (0.00-0.68); EOSINOPHILS PERCENT AUTO 3 % (0-6); Hematocrit 37.9 % (33.0-51.0); Hemoglobin 13.3 g/dL (11.5-16.0); IMMATURE GRAN ABSOLUTE AUTO 0.12 K/mm3 (0.00-0.10); IMMATURE GRAN PERCENT AUTO 2 % (0-1); LYMPHOCYTES ABSOLUTE AUTO 1.48 K/mm3 (0.84-5.20); LYMPHOCYTES PERCENT AUTO 24 % (21-46); MONOCYTES ABSOLUTE AUTO 0.76 K/mm3 (0.16-1.47); MONOCYTES PERCENT AUTO 12 % (4-13); Mean Corpuscular HGB 30.8 pg (26.0-34.0); Mean Corpuscular HGB Conc 35.1 g/dL (31.5-36.5); Mean Corpuscular Volume 88 fL (80-100); NEUTROPHILS ABSOLUTE AUTO 3.57 K/mm3 (1.96-9.15); NEUTROPHILS PERCENT AUTO 58 % (41-73); Platelet Count 151 K/mm3 (150-400); RDW Coefficient Variation 12.1 % (11.7-14.2); RDW Standard Deviation 39.3 fL (35.1-46.3); Red Blood Cell Count 4.32 M/mm3 (3.80-5.20); White Blood Cell Count 6.13 K/mm3 (4.00-11.30)
[2024-12-27 06:23] LABS: Bun/Creatinine Ratio 17.6 (12.0-20.0); Calcium, Blood 9.4 mg/dL (8.5-10.1); Creatinine, Blood 0.96 mg/dL (0.40-1.00); Magnesium, Blood 1.7 mg/dL (1.6-2.4); Potassium, Blood 3.3 mmol/L (3.5-5.5)
[2024-12-27] MEDS ORDERED: Potassium Chloride 20 MEQ TabCR PO ONE (07:00)
[2024-12-27] MEDS ORDERED: HydroCHLOROthiazide 25 mg Tab PO SCH (09:00)
[2024-12-27] MEDS ORDERED: Magnesium Oxide 400 MG Tab PO SCH (11:00)
[2024-12-27] MEDS ORDERED: Tamsulosin HCl 0.4 MG Cap PO SCH (18:00)
--- NOTE | 2024-12-27 19:22 | NUR ---
SHIFT SUMMARY PT IS A/OX4. INDEPENDENT TO BATHROOM WITH FWW. ON TELE RUNNING NORMAL SINUS RYTHYM. PT VOIDING SMALL AMOUNTS THROUGHOUT THIS SHIFT. JOHNSON DC'D YESTERDAY. PT REPORTS FEELING LIKE HER BLADDER IS NOT EMPTYING ALL THE WAY AND MINOR ABDOMINAL PAIN. THIS AFTERNOON, PT VOIDED 325, POST RESIDUAL VOLUME MEASURED 681. HOSPITALIST NOTIFIED. FLOMAX ORDERED AND GIVEN PER DEC. BLOOD SUGARS IN THE 90'S-100'S THROUGHOUT THIS SHIFT. PT CALLS APPROPRIATELY USING THE CALL LIGHT.
[2024-12-28 04:13] VITALS: BP 136/75
--- NOTE | 2024-12-28 05:07 | NUR ---
SHIFT SUMMARY; PATIENT SLEPT IN LONG INTERVALS. TELE SB 59. I HAD TO [address] CATH AT 2215. BUT SHE WAS ABLE TO HAVE LARGE VOID AFTER THAT.
[2024-12-28 05:40] LABS: Hematocrit 39.1 % (33.0-51.0); Hemoglobin 13.6 g/dL (11.5-16.0); Mean Corpuscular HGB 30.6 pg (26.0-34.0); Mean Corpuscular HGB Conc 34.8 g/dL (31.5-36.5); Mean Corpuscular Volume 88 fL (80-100); Mean Platelet Volume 11.7 fL (9.1-12.4); Platelet Count 173 K/mm3 (150-400); RDW Coefficient Variation 12.2 % (11.7-14.2); RDW Standard Deviation 39.2 fL (35.1-46.3); Red Blood Cell Count 4.45 M/mm3 (3.80-5.20)
[2024-12-28 06:06] LABS: Bun/Creatinine Ratio 16.3 (12.0-20.0); Calcium, Blood 10.1 mg/dL (8.5-10.1); Creatinine, Blood 0.92 mg/dL (0.40-1.00)
[2024-12-28 06:28] LABS: BAND PERCENT MAN 2 % (0-8); BASOPHILS PERCENT MAN 0 % (0-2); EOSINOPHILS ABSOLUTE MAN 0.35 K/mm3 (0.00-0.68); EOSINOPHILS PERCENT MAN 5 % (0-6); LYMPHOCYTES % ATYPICAL MANUAL 3 % (0-0); LYMPHOCYTES ABSOLUTE MAN 1.33 K/mm3 (0.84-5.20); LYMPHOCYTES PERCENT MAN 16 % (21-46); MONOCYTES ABSOLUTE MAN 0.77 K/mm3 (0.16-1.47); MONOCYTES PERCENT MAN 11 % (4-13); MYELOCYTE ABSOLUTE MAN 0.07 K/mm3 (0.00-0.00); MYELOCYTE PERCENT MAN 1 % (0-0); NEUTROPHILS ABSOLUTE MAN 4.41 K/mm3 (1.96-9.15); PLASMA CELL ABSOLUTE MAN 0.07 K/mm3 (0.00-0.00); PLASMA CELLS PERCENT MAN 1 % (0-0); SEG NEUTROPHILS PERCENT MAN 61 % (41-73); TOTAL CELLS COUNTED 100
[2024-12-28] MEDS ORDERED: Potassium Chloride 40 MEQ in NS 250 ML IV ONE (06:45)
[2024-12-28 07:18] VITALS: BP 148/74
[2024-12-28] MEDS ORDERED: Potassium Chloride 20 MEQ TabCR PO SCH ×2 (09:00)
[2024-12-28 11:51] VITALS: BP 140/58
[2024-12-28] MEDS ORDERED: Lidocaine 4% 1 Patch TOP SCH (13:45)
--- NOTE | 2024-12-28 17:56 | NUR ---
PT DISCHARGED 1729 WHEELCHAIR TRANSFER TO [facility]. CALLED REPORT TO ADILENE [id number]. SENT WITH BELONGINGS. HER CAR IS IN THE PARKING LOT [employer] [id number], PUTER IN COLOR. PT PRIYAVES SHE PARKED IT IN A HANDICAPPED SPOT NEAR ED, CALLED SECURITY AND LEFT THEM WITH THIS INFORMATION TO BE ABLE TO FIND HER.
[2024-12-28] MEDS ORDERED: HYDCHL25 PO (18:27)
[2024-12-28] MEDS ORDERED: LIDO700A20 TOP (18:28)
[2024-12-28] MEDS ORDERED: HUMALOG KW100 UNIT/1 SC (18:28)
[2024-12-28] MEDS ORDERED: MAGNESIUM OXID500 MG PO (18:28)
[2024-12-28] MEDS ORDERED: POTCHL20ER PO (18:30)
[2024-12-28] MEDS ORDERED: MICONAZOLE NITR85 GM TOP (18:30)
== END 2024-12-28 17:36 | DRG 637 ==
LOC: ER 21:41 → ERHOLD 12-24 02:08 → ICUE 12-24 02:08 → MEDS 12-24 02:08 → ICUE 12-24 03:55 → MEDS 12-25 00:25
PROVIDERS: Family Medicine; Student in an Organized Health Care Education/Training Program; ADMIT Student in an Organized Health Care Education/Training Program
PROC: 0T9B70Z Drainage of Bladder with Drainage Device, Via Natural or Artificial Opening (ICD-10-PCS; principal; 2024-12-26)
DX: E11.10 Type 2 diabetes mellitus with ketoacidosis without coma (principal); G93.41 Metabolic encephalopathy; E87.1 Hypo-osmolality and hyponatremia; I13.0 Hypertensive heart and chronic kidney disease with heart failure and stage 1 through stage 4 chronic kidney disease, or unspecified chronic kidney disease; N17.9 Acute kidney failure, unspecified; I50.32 Chronic diastolic (congestive) heart failure; M17.0 Bilateral primary osteoarthritis of knee; E11.40 Type 2 diabetes mellitus with diabetic neuropathy, unspecified; E03.9 Hypothyroidism, unspecified; J45.909 Unspecified asthma, uncomplicated; G47.30 Sleep apnea, unspecified; E78.5 Hyperlipidemia, unspecified; K21.9 Gastro-esophageal reflux disease without esophagitis; G43.909 Migraine, unspecified, not intractable, without status migrainosus; Z96.612 Presence of left artificial shoulder joint; Z96.651 Presence of right artificial knee joint; E83.42 Hypomagnesemia; I27.20 Pulmonary hypertension, unspecified; E11.65 Type 2 diabetes mellitus with hyperglycemia; N18.31 Chronic kidney disease, stage 3a; R53.1 Weakness; N20.0 Calculus of kidney; E87.6 Hypokalemia; B96.89 Other specified bacterial agents as the cause of diseases classified elsewhere; T38.3X6A Underdosing of insulin and oral hypoglycemic [antidiabetic] drugs, initial encounter; B97.89 Other viral agents as the cause of diseases classified elsewhere; Z90.49 Acquired absence of other specified parts of digestive tract; Z87.59 Personal history of other complications of pregnancy, childbirth and the puerperium; Z90.710 Acquired absence of both cervix and uterus; Z90.722 Acquired absence of ovaries, bilateral; Z90.89 Acquired absence of other organs; Z98.890 Other specified postprocedural states; Z91.030 Bee allergy status; Z91.048 Other nonmedicinal substance allergy status; Z88.8 Allergy status to other drugs, medicaments and biological substances; Z88.5 Allergy status to narcotic agent; Z79.899 Other long term (current) drug therapy; Z79.890 Hormone replacement therapy; Z79.4 Long term (current) use of insulin; Z91.148 Patient's other noncompliance with medication regimen for other reason; Z28.21 Immunization not carried out because of patient refusal
CPT/HCPCS: 0241U; 36415; 51703; 71045; 76770; 80048; 80053; 81001; 82010; 82803; 82947; 83735; 83880; 84100; 85025; 85027; 87086; 87428-QW; 93005; 93010; 94762; 96360; 97110; 97116; 97161; 97165; 97530; 97535; 99285-25; A9270; J1644; J1650; J1815; J3475; J3480; J7050; J7120

== ENCOUNTER 2025-01-20 10:36 | Emergency (ER) | payer MEDICARE, OTHER ==
[~2025-01-20] VITALS: Ht 172.7 cm; Wt 121.1 kg
[~2025-01-20 10:36] MED LIST changes: +HUMALOG KW100 UNIT/1 SC; +LIDO700A20 TOP; +MAGNESIUM OXID500 MG PO; +MICONAZOLE NITR85 GM TOP; +POTCHL20ER PO
[2025-01-20 11:41] LABS: BASOPHILS ABSOLUTE AUTO 0.02 K/mm3 (0.00-0.23); BASOPHILS PERCENT AUTO 0 % (0-2); EOSINOPHILS ABSOLUTE AUTO 0.13 K/mm3 (0.00-0.68); EOSINOPHILS PERCENT AUTO 2 % (0-6); Hematocrit 40.9 % (33.0-51.0); Hemoglobin 13.7 g/dL (11.5-16.0); IMMATURE GRAN ABSOLUTE AUTO 0.12 K/mm3 (0.00-0.10); IMMATURE GRAN PERCENT AUTO 1 % (0-1); LYMPHOCYTES ABSOLUTE AUTO 1.81 K/mm3 (0.84-5.20); LYMPHOCYTES PERCENT AUTO 21 % (21-46); MONOCYTES ABSOLUTE AUTO 0.51 K/mm3 (0.16-1.47); MONOCYTES PERCENT AUTO 6 % (4-13); Mean Corpuscular HGB 30.4 pg (26.0-34.0); Mean Corpuscular HGB Conc 33.5 g/dL (31.5-36.5); Mean Corpuscular Volume 91 fL (80-100); Mean Platelet Volume 11.8 fL (9.1-12.4); NEUTROPHILS ABSOLUTE AUTO 6.08 K/mm3 (1.96-9.15); NEUTROPHILS PERCENT AUTO 70 % (41-73); Platelet Count 195 K/mm3 (150-400); RDW Standard Deviation 40.3 fL (35.1-46.3); Red Blood Cell Count 4.51 M/mm3 (3.80-5.20); White Blood Cell Count 8.67 K/mm3 (4.00-11.30)
[2025-01-20 11:53] LABS: Albumin, Blood 3.9 g/dL (3.4-5.0); Albumin/Globulin Ratio 1.1 (0.8-1.8); Bilirubin, Total 0.7 mg/dL (0.1-1.0); Creatinine, Blood 1.5 mg/dL (0.40-1.00); Globulin, Blood 3.6 g/dL (2.2-4.0); Potassium, Blood 4.9 mmol/L (3.5-5.5); Total Protein, Blood 7.5 g/dL (6.4-8.2)
[2025-01-20] MEDS ORDERED: NS 1,000 ML IV SCH (15:55)
[2025-01-20 17:06] LABS: Base Excess Venous -3.3 mmol/L; Bicarbonate Venous 22.6 mmol/L (24.0-30.0); PCO2 Venous 30.7 mmHg (38-42); pH Blood Venous 7.44 (7.34-7.37)
[2025-01-20 19:30] VITALS: BP 208/108
== END 2025-01-20 19:56 | disposition home or self-care (01) ==
LOC: ER 10:36
PROVIDERS: Emergency Medicine; Student in an Organized Health Care Education/Training Program
DX: E11.65 Type 2 diabetes mellitus with hyperglycemia (principal); E11.42 Type 2 diabetes mellitus with diabetic polyneuropathy; E03.9 Hypothyroidism, unspecified; G47.30 Sleep apnea, unspecified; E78.5 Hyperlipidemia, unspecified; G43.909 Migraine, unspecified, not intractable, without status migrainosus; K21.9 Gastro-esophageal reflux disease without esophagitis; Z79.899 Other long term (current) drug therapy; Z79.4 Long term (current) use of insulin; Z91.030 Bee allergy status; Z91.048 Other nonmedicinal substance allergy status; Z88.5 Allergy status to narcotic agent
CPT/HCPCS: 80053; 82010; 82803; 82947; 85025; 96360; 99285-25; J7030

== ENCOUNTER 2025-01-22 11:37 | Emergency (ER) | payer MEDICARE, OTHER ==
[~2025-01-22] VITALS: Ht 172.7 cm; Wt 98.0 kg
[2025-01-22 12:23] LABS: Base Excess Venous -1.2 mmol/L; Bicarbonate Venous 23.2 mmol/L (24.0-30.0); PCO2 Venous 44.8 mmHg (38-42); pH Blood Venous 7.35 (7.34-7.37)
[2025-01-22 12:25] LABS: BASOPHILS ABSOLUTE AUTO 0.03 K/mm3 (0.00-0.23); BASOPHILS PERCENT AUTO 0 % (0-2); EOSINOPHILS ABSOLUTE AUTO 0.17 K/mm3 (0.00-0.68); EOSINOPHILS PERCENT AUTO 2 % (0-6); Hemoglobin 12.8 g/dL (11.5-16.0); IMMATURE GRAN ABSOLUTE AUTO 0.14 K/mm3 (0.00-0.10); IMMATURE GRAN PERCENT AUTO 2 % (0-1); LYMPHOCYTES PERCENT AUTO 23 % (21-46); MONOCYTES ABSOLUTE AUTO 0.38 K/mm3 (0.16-1.47); MONOCYTES PERCENT AUTO 5 % (4-13); Mean Corpuscular HGB Conc 33.7 g/dL (31.5-36.5); Mean Corpuscular Volume 92 fL (80-100); NEUTROPHILS PERCENT AUTO 67 % (41-73); Platelet Count 181 K/mm3 (150-400); RDW Coefficient Variation 11.9 % (11.7-14.2); RDW Standard Deviation 40.5 fL (35.1-46.3); Red Blood Cell Count 4.13 M/mm3 (3.80-5.20); White Blood Cell Count 7.32 K/mm3 (4.00-11.30)
[2025-01-22] MEDS ORDERED: Insulin Regular 100 Unit/ML 1ML Dose SC ONE ×2 (12:35→14:00)
[2025-01-22] MEDS ORDERED: NS 1,000 ML IV SCH ×2 (12:35→14:00)
[2025-01-22 12:55] LABS: Albumin, Blood 3.6 g/dL (3.4-5.0); Albumin/Globulin Ratio 1.1 (0.8-1.8); Beta-hydroxybutyrate 2.1 mg/dL (0.2-2.8); Bilirubin, Total 0.3 mg/dL (0.1-1.0); Bun/Creatinine Ratio 38.6 (12.0-20.0); Calcium, Blood 9.6 mg/dL (8.5-10.1); Creatinine, Blood 1.14 mg/dL (0.40-1.00); Globulin, Blood 3.3 g/dL (2.2-4.0); Potassium, Blood 4.5 mmol/L (3.5-5.5); Total Protein, Blood 6.9 g/dL (6.4-8.2)
[2025-01-22 14:25] LABS: Source, Urine Clean Catch
[2025-01-22 14:58] LABS: Appearance, Urine Hazy (Clear); Bilirubin, Urine Neg (Neg); Blood, Urine 1+ (Neg); Glucose Qualitative, Urine 4+ (Neg); Ketones, Urine Neg (Neg); Leukocyte Esterase, Urine 2+ (Neg); Nitrite, Urine Pos (Neg); Protein, Urine Neg (Neg); Urobilinogen, Urine NORM (Normal)
[2025-01-22 15:26] LABS: Color, Urine Pale Yellow (P-Yellow)
[2025-01-22 15:28] LABS: Bacteria Many /hpf; Red Blood Cells, Urine 0-2 /hpf (0-2); Squamous Epithelial Cells Few /hpf (Few); White Blood Cells, Urine 50-100 /hpf (0-5)
[2025-01-22] MEDS ORDERED: Cephalexin Monohydrate 500 MG Cap PO ONE (15:40)
[2025-01-22 15:56] VITALS: BP 171/87
[2025-01-22] MEDS ORDERED: CEPH500 PO (16:02)
== END 2025-01-22 18:02 | disposition home or self-care (01) ==
LOC: ER 11:37
PROVIDERS: Emergency Medicine; Student in an Organized Health Care Education/Training Program
DX: E11.65 Type 2 diabetes mellitus with hyperglycemia (principal); N39.0 Urinary tract infection, site not specified; T38.3X6A Underdosing of insulin and oral hypoglycemic [antidiabetic] drugs, initial encounter; E11.40 Type 2 diabetes mellitus with diabetic neuropathy, unspecified; J45.909 Unspecified asthma, uncomplicated; E03.9 Hypothyroidism, unspecified; G47.30 Sleep apnea, unspecified; E78.5 Hyperlipidemia, unspecified; K21.9 Gastro-esophageal reflux disease without esophagitis; G43.909 Migraine, unspecified, not intractable, without status migrainosus; E11.22 Type 2 diabetes mellitus with diabetic chronic kidney disease; N18.30 Chronic kidney disease, stage 3 unspecified; Z91.141 Patient's other noncompliance with medication regimen due to financial hardship; Z59.00 Homelessness unspecified; Z59.89 Other problems related to housing and economic circumstances; Z91.030 Bee allergy status; Z88.8 Allergy status to other drugs, medicaments and biological substances; Z91.048 Other nonmedicinal substance allergy status; Z88.5 Allergy status to narcotic agent; Z79.890 Hormone replacement therapy; Z79.4 Long term (current) use of insulin; Z79.899 Other long term (current) drug therapy
CPT/HCPCS: 80053; 81001; 82010; 82803; 82947; 85025; 87077; 87086; 87186; 96360; 99283-25; A9270; J1815; J7030

== ENCOUNTER 2025-01-23 18:16 | Emergency (ER) | payer MEDICARE, OTHER ==
[~2025-01-23] VITALS: Ht 172.7 cm; Wt 121.1 kg
[2025-01-23 18:31] VITALS: BP 145/76
== END 2025-01-23 18:40 | disposition home or self-care (01) ==
LOC: ER 18:16
DX: E11.65 Type 2 diabetes mellitus with hyperglycemia (principal); E11.40 Type 2 diabetes mellitus with diabetic neuropathy, unspecified; E11.22 Type 2 diabetes mellitus with diabetic chronic kidney disease; I12.9 Hypertensive chronic kidney disease with stage 1 through stage 4 chronic kidney disease, or unspecified chronic kidney disease; N18.30 Chronic kidney disease, stage 3 unspecified; J45.909 Unspecified asthma, uncomplicated; E03.9 Hypothyroidism, unspecified; E78.5 Hyperlipidemia, unspecified; G47.30 Sleep apnea, unspecified; K21.9 Gastro-esophageal reflux disease without esophagitis; Z91.030 Bee allergy status; Z88.8 Allergy status to other drugs, medicaments and biological substances; Z91.048 Other nonmedicinal substance allergy status; Z88.5 Allergy status to narcotic agent; Z79.890 Hormone replacement therapy; Z79.4 Long term (current) use of insulin; Z79.899 Other long term (current) drug therapy; Z59.89 Other problems related to housing and economic circumstances
CPT/HCPCS: 82947; 99284

== ENCOUNTER 2025-01-24 14:18 | Emergency (ER) | payer MEDICARE, OTHER ==
[~2025-01-24] VITALS: Ht 172.7 cm; Wt 121.1 kg
[2025-01-24 14:45] VITALS: BP 134/62
== END 2025-01-24 16:24 | disposition home or self-care (01) ==
LOC: ER 14:18
DX: R73.01 Impaired fasting glucose (principal); E11.40 Type 2 diabetes mellitus with diabetic neuropathy, unspecified; E11.22 Type 2 diabetes mellitus with diabetic chronic kidney disease; N18.30 Chronic kidney disease, stage 3 unspecified; K21.9 Gastro-esophageal reflux disease without esophagitis; E78.5 Hyperlipidemia, unspecified; Z88.5 Allergy status to narcotic agent; Z88.2 Allergy status to sulfonamides; Z88.1 Allergy status to other antibiotic agents; Z88.0 Allergy status to penicillin; Z91.038 Other insect allergy status
CPT/HCPCS: 82947; 99284

== ENCOUNTER 2025-01-25 07:54 | Observation (INO) | payer MEDICARE, OTHER ==
[~2025-01-25] VITALS: Ht 172.7 cm; Wt 121.1 kg
[2025-01-25 09:16] LABS: BASOPHILS ABSOLUTE AUTO 0.01 K/mm3 (0.00-0.23); BASOPHILS PERCENT AUTO 0 % (0-2); EOSINOPHILS ABSOLUTE AUTO 0.17 K/mm3 (0.00-0.68); EOSINOPHILS PERCENT AUTO 2 % (0-6); Hemoglobin 12.9 g/dL (11.5-16.0); IMMATURE GRAN ABSOLUTE AUTO 0.13 K/mm3 (0.00-0.10); IMMATURE GRAN PERCENT AUTO 1 % (0-1); LYMPHOCYTES ABSOLUTE AUTO 1.81 K/mm3 (0.84-5.20); LYMPHOCYTES PERCENT AUTO 19 % (21-46); MONOCYTES ABSOLUTE AUTO 0.49 K/mm3 (0.16-1.47); MONOCYTES PERCENT AUTO 5 % (4-13); Mean Corpuscular HGB 30.9 pg (26.0-34.0); Mean Corpuscular HGB Conc 33.1 g/dL (31.5-36.5); Mean Corpuscular Volume 94 fL (80-100); Mean Platelet Volume 11.7 fL (9.1-12.4); NEUTROPHILS ABSOLUTE AUTO 6.77 K/mm3 (1.96-9.15); NEUTROPHILS PERCENT AUTO 72 % (41-73); Platelet Count 183 K/mm3 (150-400); RDW Coefficient Variation 12.2 % (11.7-14.2); Red Blood Cell Count 4.17 M/mm3 (3.80-5.20); White Blood Cell Count 9.38 K/mm3 (4.00-11.30)
[2025-01-25 09:36] LABS: Ethanol (Alcohol), Blood, Med <3 mg/dL; Salicylate <1.7 mg/dL (2.8-20.0)
[2025-01-25 09:37] LABS: Acetaminophen, Random <2.0 ug/mL (10.0-30.0); Alanine Aminotransfer (ALT/SGP 29 U/L (12-78); Albumin, Blood 3.3 g/dL (3.4-5.0); Albumin/Globulin Ratio 1.1 (0.8-1.8); Alk Phos 178 U/L (50-136); Anion Gap 6 mmol/L (3-11); Aspartate Aminotrans (AST/SGOT 21 U/L (12-37); Bilirubin, Total 0.5 mg/dL (0.1-1.0); Blood Urea Nitrogen 21 mg/dL (8-24); CO2, Blood 28 mmol/L (21-32); Calcium, Blood 10.1 mg/dL (8.5-10.1); Chloride, Blood 106 mmol/L (98-108); Creatinine, Blood 0.96 mg/dL (0.40-1.00); Glomerular Filtration Rate 65 (60-); Glucose, Blood 184 mg/dL (70-99); Potassium, Blood 4.3 mmol/L (3.5-5.5); Sodium, Blood 136 mmol/L (136-145); Total Protein, Blood 6.3 g/dL (6.4-8.2)
[2025-01-25] MEDS ORDERED: Cephalexin Monohydrate 500 MG Cap PO ONE (09:50)
[2025-01-25 11:13] LABS: Source, Urine Clean Catch
[2025-01-25 11:42] LABS: Appearance, Urine Hazy (Clear); Bilirubin, Urine Neg (Neg); Blood, Urine Neg (Neg); Color, Urine Yellow (P-Yellow); Glucose Qualitative, Urine 4+ (Neg); Ketones, Urine Neg (Neg); Leukocyte Esterase, Urine 2+ (Neg); Nitrite, Urine Neg (Neg); Protein, Urine 1+ (Neg); Urobilinogen, Urine NORM (Normal)
[2025-01-25 12:03] LABS: U Amphetamine Screen Not Detected; U Barbituate Screen Not Detected; U Benzodiazapine Screen Not Detected; U Buprenorphine Screen Not Detected; U Cannabinoids Screen Not Detected; U Cocaine Screen Not Detected; U Methadone Screen Not Detected; U Methamphetamine Screen Not Detected; U Opiates Screen Not Detected; U Oxycodone Screen Not Detected; U Phencyclidine Screen Not Detected
[2025-01-25 12:05] LABS: Red Blood Cells, Urine 0-2 /hpf (0-2); Squamous Epithelial Cells Mod /hpf (Few); Yeast/Fungi Urine Mod /hpf
[2025-01-25 12:06] LABS: Bacteria Not Seen /hpf
[2025-01-25 15:05] LABS: Influenza A, PCR NEGATIVE (NEGATIVE); Influenza B, PCR NEGATIVE (NEGATIVE); Resp Syncytial Virus, PCR NEGATIVE (NEGATIVE); SARS-Cov-2 (COVID-19) PCR, MMC NEGATIVE (NEGATIVE)
[2025-01-26] MEDS ORDERED: LIPITOR80 MG PO (03:25)
[2025-01-26] MEDS ORDERED: Cephalexin Monohydrate 500 MG Cap PO SCH (09:00)
[2025-01-26 09:43] VITALS: BP 140/62
== END 2025-01-26 11:53 ==
LOC: ER 07:54 → EOR 07:55
PROVIDERS: Physician Assistant; Student in an Organized Health Care Education/Training Program; ADMIT Psychiatry & Neurology Psychiatry
DX: F33.2 Major depressive disorder, recurrent severe without psychotic features (principal); F43.23 Adjustment disorder with mixed anxiety and depressed mood; E11.40 Type 2 diabetes mellitus with diabetic neuropathy, unspecified; J45.909 Unspecified asthma, uncomplicated; E03.9 Hypothyroidism, unspecified; E11.22 Type 2 diabetes mellitus with diabetic chronic kidney disease; N18.30 Chronic kidney disease, stage 3 unspecified; Z88.5 Allergy status to narcotic agent; Z88.8 Allergy status to other drugs, medicaments and biological substances; Z91.030 Bee allergy status
CPT/HCPCS: 0241U; 80053; 80320; 81001; 82947; 85025; 87086; 87106; 99285; A9270; G0378; G0480

== ENCOUNTER 2025-02-17 21:02 | Emergency (ER) | payer MEDICARE, OTHER ==
[~2025-02-17] VITALS: Ht 172.7 cm; Wt 129.3 kg
[~2025-02-17 21:02] MED LIST changes: +LIPITOR80 MG PO
[2025-02-17 21:13] VITALS: BP 146/67
[2025-02-17] MEDS ORDERED: Ketorolac Tromethamine 10 MG Tab PO ONE (23:55)
== END 2025-02-18 00:26 | disposition home or self-care (01) ==
LOC: ER 21:02
DX: M16.12 Unilateral primary osteoarthritis, left hip (principal); E11.40 Type 2 diabetes mellitus with diabetic neuropathy, unspecified; E11.22 Type 2 diabetes mellitus with diabetic chronic kidney disease; N18.30 Chronic kidney disease, stage 3 unspecified; E03.9 Hypothyroidism, unspecified; G47.30 Sleep apnea, unspecified; E78.5 Hyperlipidemia, unspecified; K21.9 Gastro-esophageal reflux disease without esophagitis; Z79.4 Long term (current) use of insulin; Z79.899 Other long term (current) drug therapy; Z91.030 Bee allergy status; Z91.048 Other nonmedicinal substance allergy status; Z88.5 Allergy status to narcotic agent; Z88.8 Allergy status to other drugs, medicaments and biological substances
CPT/HCPCS: 73502; 99283-25; A9270

== ENCOUNTER 2025-02-18 18:17 | Emergency (ER) | payer MEDICARE, OTHER ==
[~2025-02-18] VITALS: Ht 172.7 cm; Wt 129.3 kg
[2025-02-18 18:49] LABS: BASOPHILS ABSOLUTE AUTO 0.04 K/mm3 (0.00-0.23); BASOPHILS PERCENT AUTO 0 % (0-2); EOSINOPHILS ABSOLUTE AUTO 0.35 K/mm3 (0.00-0.68); EOSINOPHILS PERCENT AUTO 3 % (0-6); Hematocrit 43.3 % (33.0-51.0); Hemoglobin 13.6 g/dL (11.5-16.0); IMMATURE GRAN ABSOLUTE AUTO 0.07 K/mm3 (0.00-0.10); IMMATURE GRAN PERCENT AUTO 1 % (0-1); LYMPHOCYTES ABSOLUTE AUTO 1.95 K/mm3 (0.84-5.20); LYMPHOCYTES PERCENT AUTO 19 % (21-46); MONOCYTES ABSOLUTE AUTO 0.47 K/mm3 (0.16-1.47); MONOCYTES PERCENT AUTO 5 % (4-13); Mean Corpuscular HGB 29.5 pg (26.0-34.0); Mean Corpuscular HGB Conc 31.4 g/dL (31.5-36.5); Mean Corpuscular Volume 94 fL (80-100); Mean Platelet Volume 10.8 fL (9.1-12.4); NEUTROPHILS ABSOLUTE AUTO 7.58 K/mm3 (1.96-9.15); NEUTROPHILS PERCENT AUTO 73 % (41-73); Platelet Count 196 K/mm3 (150-400); RDW Coefficient Variation 12.9 % (11.7-14.2); RDW Standard Deviation 43.9 fL (35.1-46.3); Red Blood Cell Count 4.61 M/mm3 (3.80-5.20); White Blood Cell Count 10.46 K/mm3 (4.00-11.30)
[2025-02-18 19:12] LABS: Albumin, Blood 3.6 g/dL (3.4-5.0); Albumin/Globulin Ratio 1.2 (0.8-1.8); Bilirubin, Total 0.5 mg/dL (0.1-1.0); Bun/Creatinine Ratio 31.3 (12.0-20.0); Creatinine, Blood 1.15 mg/dL (0.40-1.00); Globulin, Blood 3.1 g/dL (2.2-4.0); Total Protein, Blood 6.7 g/dL (6.4-8.2)
[2025-02-18] MEDS ORDERED: DiphenhydrAMINE HCl 50 MG/ML 1ML Vial IV ONE (19:30)
[2025-02-18] MEDS ORDERED: Metoclopramide HCl 5MG / ML 2ML Vial IV ONE (19:30)
[2025-02-18] MEDS ORDERED: Ketorolac Tromethamine 30mg Vial IV ONE (19:30)
[2025-02-18 20:57] VITALS: BP 175/77
== END 2025-02-18 21:00 | disposition home or self-care (01) ==
LOC: ER 18:17
PROVIDERS: Emergency Medicine
DX: G43.909 Migraine, unspecified, not intractable, without status migrainosus (principal); E11.40 Type 2 diabetes mellitus with diabetic neuropathy, unspecified; E11.22 Type 2 diabetes mellitus with diabetic chronic kidney disease; N18.30 Chronic kidney disease, stage 3 unspecified; J45.909 Unspecified asthma, uncomplicated; M19.90 Unspecified osteoarthritis, unspecified site; G47.30 Sleep apnea, unspecified; K21.9 Gastro-esophageal reflux disease without esophagitis; E78.5 Hyperlipidemia, unspecified; Z91.030 Bee allergy status; Z88.5 Allergy status to narcotic agent; Z79.890 Hormone replacement therapy; Z79.4 Long term (current) use of insulin; Z79.2 Long term (current) use of antibiotics
CPT/HCPCS: 36415; 80053; 85025; 96374; 96375; 99283-25; J1200; J1885; J2765

== ENCOUNTER 2025-02-21 15:58 | Emergency (ER) | payer MEDICARE, OTHER ==
[~2025-02-21] VITALS: Ht 172.7 cm; Wt 129.3 kg
[2025-02-21 16:58] LABS: BASOPHILS ABSOLUTE AUTO 0.02 K/mm3 (0.00-0.23); BASOPHILS PERCENT AUTO 0 % (0-2); EOSINOPHILS ABSOLUTE AUTO 0.26 K/mm3 (0.00-0.68); EOSINOPHILS PERCENT AUTO 3 % (0-6); Hematocrit 38.3 % (33.0-51.0); Hemoglobin 12.6 g/dL (11.5-16.0); IMMATURE GRAN ABSOLUTE AUTO 0.06 K/mm3 (0.00-0.10); IMMATURE GRAN PERCENT AUTO 1 % (0-1); LYMPHOCYTES ABSOLUTE AUTO 1.93 K/mm3 (0.84-5.20); LYMPHOCYTES PERCENT AUTO 24 % (21-46); MONOCYTES ABSOLUTE AUTO 0.48 K/mm3 (0.16-1.47); MONOCYTES PERCENT AUTO 6 % (4-13); Mean Corpuscular HGB 30.2 pg (26.0-34.0); Mean Corpuscular HGB Conc 32.9 g/dL (31.5-36.5); Mean Corpuscular Volume 92 fL (80-100); Mean Platelet Volume 11.7 fL (9.1-12.4); NEUTROPHILS ABSOLUTE AUTO 5.34 K/mm3 (1.96-9.15); NEUTROPHILS PERCENT AUTO 66 % (41-73); Platelet Count 192 K/mm3 (150-400); RDW Coefficient Variation 12.9 % (11.7-14.2); RDW Standard Deviation 43.2 fL (35.1-46.3); Red Blood Cell Count 4.17 M/mm3 (3.80-5.20); White Blood Cell Count 8.09 K/mm3 (4.00-11.30)
[2025-02-21 17:35] LABS: Albumin, Blood 3.5 g/dL (3.4-5.0); Albumin/Globulin Ratio 1.1 (0.8-1.8); Bilirubin, Total 0.8 mg/dL (0.1-1.0); Bun/Creatinine Ratio 29.4 (12.0-20.0); Creatinine, Blood 1.19 mg/dL (0.40-1.00); Globulin, Blood 3.1 g/dL (2.2-4.0); Magnesium, Blood 1.4 mg/dL (1.6-2.4); Phosphorus, Blood 2.5 mg/dL (2.5-4.9); Potassium, Blood 4.3 mmol/L (3.5-5.5); Total Protein, Blood 6.6 g/dL (6.4-8.2)
[2025-02-21 19:33] LABS: Base Excess Venous -3.8 mmol/L; Bicarbonate Venous 20.8 mmol/L (24.0-30.0); PCO2 Venous 51.2 mmHg (38-42); pH Blood Venous 7.27 (7.34-7.37)
[2025-02-21] MEDS ORDERED: Insulin Regular 100 Unit/ML 1ML Dose IV ONE (19:35)
[2025-02-21] MEDS ORDERED: NS 1,000 ML IV SCH (19:35)
[2025-02-21] MEDS ORDERED: Acetaminophen 500 MG Tab PO ONE (19:35)
[2025-02-21 21:49] VITALS: BP 141/71
[2025-02-21 22:23] LABS: Glucose, Blood 311 mg/dL (70-99)
[2025-02-21 22:52] LABS: Base Excess Venous -1.7 mmol/L; Bicarbonate Venous 22.4 mmol/L (24.0-30.0); PCO2 Venous 53.9 mmHg (38-42); pH Blood Venous 7.28 (7.34-7.37)
[2025-02-21 23:54] LABS: Source, Urine Clean Catch
[2025-02-22] LABS: Bilirubin, Urine Neg (Neg); Blood, Urine 2+ (Neg); Glucose Qualitative, Urine 4+ (Neg); Ketones, Urine Neg (Neg); Leukocyte Esterase, Urine 3+ (Neg); Nitrite, Urine Neg (Neg); Protein, Urine 1+ (Neg); Specific Gravity, Urine 1.015 (1.003-1.022); Urobilinogen, Urine NORM (Normal)
[2025-02-22 00:09] LABS: Appearance, Urine Hazy (Clear); Color, Urine Yellow (P-Yellow)
[2025-02-22 00:11] LABS: Bacteria Few /hpf; Red Blood Cells, Urine 0-2 /hpf (0-2); Squamous Epithelial Cells Rare /hpf (Few); White Blood Cells, Urine TNTC /hpf (0-5)
[2025-02-22] MEDS ORDERED: Cephalexin Monohydrate 500 MG Cap PO ONE (00:20)
== END 2025-02-22 00:32 | disposition home or self-care (01) ==
LOC: ER 15:58
PROVIDERS: Emergency Medicine; Student in an Organized Health Care Education/Training Program
DX: E11.65 Type 2 diabetes mellitus with hyperglycemia (principal); N39.0 Urinary tract infection, site not specified; E11.40 Type 2 diabetes mellitus with diabetic neuropathy, unspecified; E11.22 Type 2 diabetes mellitus with diabetic chronic kidney disease; N18.30 Chronic kidney disease, stage 3 unspecified; J45.909 Unspecified asthma, uncomplicated; E03.9 Hypothyroidism, unspecified; E78.5 Hyperlipidemia, unspecified; G47.30 Sleep apnea, unspecified; G43.909 Migraine, unspecified, not intractable, without status migrainosus; K21.9 Gastro-esophageal reflux disease without esophagitis; Z87.891 Personal history of nicotine dependence; Z91.030 Bee allergy status; Z88.8 Allergy status to other drugs, medicaments and biological substances; Z91.048 Other nonmedicinal substance allergy status; Z88.5 Allergy status to narcotic agent; Z79.890 Hormone replacement therapy; Z79.4 Long term (current) use of insulin; Z79.899 Other long term (current) drug therapy
CPT/HCPCS: 71046; 80053; 81001; 82010; 82803; 82947; 83690; 83735; 83930; 84100; 84484; 85025; 87086; 93005; 93010; 96360; 99284-25; A9270; J7030

== ENCOUNTER 2025-03-01 11:42 | Emergency (ER) | payer MEDICARE, OTHER ==
[~2025-03-01] VITALS: Ht 172.7 cm; Wt 136.1 kg
[2025-03-01 11:50] VITALS: BP 168/74
[2025-03-01] MEDS ORDERED: Ketorolac Tromethamine 15mg Vial IM ONE (12:25)
[2025-03-06] MEDS ORDERED: CEFD300 PO (13:06)
== END 2025-03-01 13:21 | disposition home or self-care (01) ==
LOC: ER 11:42
DX: M77.32 Calcaneal spur, left foot (principal); E11.9 Type 2 diabetes mellitus without complications; J45.909 Unspecified asthma, uncomplicated; E03.9 Hypothyroidism, unspecified; G47.30 Sleep apnea, unspecified; E78.00 Pure hypercholesterolemia, unspecified; G43.909 Migraine, unspecified, not intractable, without status migrainosus; K21.9 Gastro-esophageal reflux disease without esophagitis; Z88.5 Allergy status to narcotic agent; Z88.1 Allergy status to other antibiotic agents; Z88.8 Allergy status to other drugs, medicaments and biological substances; Z91.030 Bee allergy status; Z91.048 Other nonmedicinal substance allergy status; Z79.890 Hormone replacement therapy; Z79.4 Long term (current) use of insulin; Z79.899 Other long term (current) drug therapy; Z59.89 Other problems related to housing and economic circumstances
CPT/HCPCS: 73630; 96372; 99283-25; J1885

== ENCOUNTER 2025-04-15 15:35 | Emergency (ER) | payer MEDICARE, OTHER ==
[~2025-04-15] VITALS: Ht 172.7 cm; Wt 126.5 kg
[~2025-04-15 15:35] MED LIST changes: +B-12500 MC2 PO; +BASAGLAR K100 UNIT/3 SC; +DULO30 PO; +FENO145 PO; +FIASP 100100 UNIT/3 SQ; +GABA300 PO; +TOLTERODINE TART4 MG PO; +TRULICITY0.75 MG/01; +ZYRTEC10 M2 PO
[2025-04-15 16:21] LABS: BASOPHILS ABSOLUTE AUTO 0.03 K/mm3 (0.00-0.23); BASOPHILS PERCENT AUTO 0 % (0-2); EOSINOPHILS ABSOLUTE AUTO 0.03 K/mm3 (0.00-0.68); EOSINOPHILS PERCENT AUTO 0 % (0-6); Hematocrit 43.1 % (33.0-51.0); Hemoglobin 14.9 g/dL (11.5-16.0); IMMATURE GRAN ABSOLUTE AUTO 0.09 K/mm3 (0.00-0.10); IMMATURE GRAN PERCENT AUTO 1 % (0-1); LYMPHOCYTES ABSOLUTE AUTO 2.20 K/mm3 (0.84-5.20); LYMPHOCYTES PERCENT AUTO 17 % (21-46); MONOCYTES ABSOLUTE AUTO 0.54 K/mm3 (0.16-1.47); MONOCYTES PERCENT AUTO 4 % (4-13); Mean Corpuscular HGB Conc 34.6 g/dL (31.5-36.5); Mean Corpuscular Volume 88 fL (80-100); NEUTROPHILS ABSOLUTE AUTO 9.73 K/mm3 (1.96-9.15); NEUTROPHILS PERCENT AUTO 77 % (41-73); NRBC ABSOLUTE 0.00 K/mm3 (0.00-0.02); NRBC Auto 0.0 /100 WBC (0.0-0.2); Platelet Count 216 K/mm3 (150-400); RDW Coefficient Variation 13.1 % (11.7-14.2); RDW Standard Deviation 41.8 fL (35.1-46.3)
[2025-04-15 16:48] LABS: Alanine Aminotransfer (ALT/SGP 23.0 U/L (12-78); Albumin, Blood 4.0 g/dL (3.4-5.0); Albumin/Globulin Ratio 1.4 (0.8-1.8); Anion Gap 17.0 mmol/L (3-11); Aspartate Aminotrans (AST/SGOT 28.0 U/L (12-37); Bilirubin, Total 1.0 mg/dL (0.1-1.0); Blood Urea Nitrogen 34.0 mg/dL (8-24); CO2, Blood 19.0 mmol/L (21-32); Calcium, Blood 10.4 mg/dL (8.5-10.1); Chloride, Blood 102.0 mmol/L (98-108); Creatinine, Blood 1.22 mg/dL (0.40-1.00); Globulin, Blood 2.9 g/dL (2.2-4.0); Glucose, Blood 392.0 mg/dL (70-99); Potassium, Blood 3.7 mmol/L (3.5-5.5); Sodium, Blood 134.0 mmol/L (136-145); Total Protein, Blood 6.9 g/dL (6.4-8.2)
[2025-04-15] MEDS ORDERED: NS 1,000 ML IV SCH ×2 (19:20→21:45)
[2025-04-15] MEDS ORDERED: Insulin Glargine-Yfgn 100 Unit/mL 3 ML SYR SC ONE (20:10)
[2025-04-15 20:16] LABS: pH Blood Venous 7.31 (7.34-7.37)
[2025-04-15 20:43] LABS: Source, Urine Clean Catch
[2025-04-15 20:48] LABS: Bilirubin, Urine Neg (Neg); Color, Urine Yellow (P-Yellow); Glucose Qualitative, Urine 4+ (Neg); Ketones, Urine 3+ (Neg); Leukocyte Esterase, Urine 1+ (Neg); Protein, Urine 2+ (Neg); Specific Gravity, Urine 1.020 (1.003-1.022); Urobilinogen, Urine NORM (Normal)
[2025-04-15 20:58] LABS: Red Blood Cells, Urine 0-2 /hpf (0-2); White Blood Cells, Urine 25-50 /hpf (0-5)
[2025-04-15] MEDS ORDERED: CefTRIAXone Sodium 1,000 MG in NS 100 ML IV ONE (21:20)
[2025-04-16 00:40] LABS: Anion Gap 11.0 mmol/L (3-11); Blood Urea Nitrogen 31.0 mg/dL (8-24); CO2, Blood 24.0 mmol/L (21-32); Calcium, Blood 9.6 mg/dL (8.5-10.1); Chloride, Blood 108.0 mmol/L (98-108); Creatinine, Blood 0.96 mg/dL (0.40-1.00); Glucose, Blood 220.0 mg/dL (70-99); Potassium, Blood 3.4 mmol/L (3.5-5.5); Sodium, Blood 140.0 mmol/L (136-145)
[2025-04-16 00:56] VITALS: BP 167/100
[2025-04-16] MEDS ORDERED: CEPH500 PO (01:00)
[2025-04-20] MEDS ORDERED: HUMALOG KW100 UNIT/1 SC (15:30)
== END 2025-04-16 01:40 | disposition home or self-care (01) ==
LOC: ER 15:35
PROVIDERS: Student in an Organized Health Care Education/Training Program
DX: N39.0 Urinary tract infection, site not specified (principal); Z91.148 Patient's other noncompliance with medication regimen for other reason; E11.65 Type 2 diabetes mellitus with hyperglycemia; E11.10 Type 2 diabetes mellitus with ketoacidosis without coma; E11.40 Type 2 diabetes mellitus with diabetic neuropathy, unspecified; J45.909 Unspecified asthma, uncomplicated; G47.33 Obstructive sleep apnea (adult) (pediatric); E78.5 Hyperlipidemia, unspecified; E11.22 Type 2 diabetes mellitus with diabetic chronic kidney disease; N18.30 Chronic kidney disease, stage 3 unspecified; Z90.711 Acquired absence of uterus with remaining cervical stump; Z90.89 Acquired absence of other organs; Z90.49 Acquired absence of other specified parts of digestive tract; Z91.030 Bee allergy status; Z88.5 Allergy status to narcotic agent; Z79.2 Long term (current) use of antibiotics; Z79.899 Other long term (current) drug therapy; Z79.4 Long term (current) use of insulin; Z79.890 Hormone replacement therapy; K21.9 Gastro-esophageal reflux disease without esophagitis; Z87.442 Personal history of urinary calculi
CPT/HCPCS: 71046; 80048; 80053; 81001; 82010; 82803; 82947; 83880; 85025; 87077; 87086; 87186; 93005; 93010; 96361; 96365; 99285-25; J0696; J1815; J7030

== ENCOUNTER 2025-04-16 18:53 | Observation (INO) | payer MEDICARE, OTHER ==
[~2025-04-16] VITALS: Ht 172.7 cm; Wt 134.7 kg
[2025-04-16 21:03] LABS: BASOPHILS ABSOLUTE AUTO 0.02 K/mm3 (0.00-0.23); BASOPHILS PERCENT AUTO 0 % (0-2); EOSINOPHILS ABSOLUTE AUTO 0.03 K/mm3 (0.00-0.68); EOSINOPHILS PERCENT AUTO 0 % (0-6); Hematocrit 42.4 % (33.0-51.0); Hemoglobin 14.5 g/dL (11.5-16.0); IMMATURE GRAN ABSOLUTE AUTO 0.08 K/mm3 (0.00-0.10); IMMATURE GRAN PERCENT AUTO 1 % (0-1); LYMPHOCYTES ABSOLUTE AUTO 2.21 K/mm3 (0.84-5.20); LYMPHOCYTES PERCENT AUTO 23 % (21-46); MONOCYTES ABSOLUTE AUTO 0.57 K/mm3 (0.16-1.47); MONOCYTES PERCENT AUTO 6 % (4-13); Mean Corpuscular HGB Conc 34.2 g/dL (31.5-36.5); Mean Corpuscular Volume 88 fL (80-100); NEUTROPHILS ABSOLUTE AUTO 6.87 K/mm3 (1.96-9.15); NEUTROPHILS PERCENT AUTO 70 % (41-73); NRBC ABSOLUTE 0.00 K/mm3 (0.00-0.02); NRBC Auto 0.0 /100 WBC (0.0-0.2); Platelet Count 179 K/mm3 (150-400); RDW Coefficient Variation 13.0 % (11.7-14.2); RDW Standard Deviation 42.0 fL (35.1-46.3)
[2025-04-16 21:43] LABS: Acetaminophen, Random <2.0 ug/mL (10.0-30.0); Alanine Aminotransfer (ALT/SGP 33 U/L (12-78); Albumin, Blood 3.8 g/dL (3.4-5.0); Albumin/Globulin Ratio 1.2 (0.8-1.8); Anion Gap 10 mmol/L (3-11); Aspartate Aminotrans (AST/SGOT 39 U/L (12-37); Bilirubin, Total 0.5 mg/dL (0.1-1.0); Blood Urea Nitrogen 32 mg/dL (8-24); CO2, Blood 24 mmol/L (21-32); Calcium, Blood 9.9 mg/dL (8.5-10.1); Chloride, Blood 105 mmol/L (98-108); Creatinine, Blood 0.92 mg/dL (0.40-1.00); Ethanol (Alcohol), Blood, Med <3 mg/dL; Globulin, Blood 3.1 g/dL (2.2-4.0); Glucose, Blood 427 mg/dL (70-99); Potassium, Blood 3.5 mmol/L (3.5-5.5); Salicylate 2.0 mg/dL (2.8-20.0); Sodium, Blood 135 mmol/L (136-145); Total Protein, Blood 6.9 g/dL (6.4-8.2)
[2025-04-16] MEDS ORDERED: NS 1,000 ML IV SCH (21:50)
[2025-04-16] MEDS ORDERED: HydrALAZINE HCl 20 MG / ML 1ML Vial IV ONE (21:50)
[2025-04-16 22:55] LABS: Source, Urine Clean Catch
[2025-04-16 23:02] LABS: Bilirubin, Urine Neg (Neg); Glucose Qualitative, Urine 4+ (Neg); Ketones, Urine 1+ (Neg); Leukocyte Esterase, Urine 1+ (Neg); Protein, Urine 1+ (Neg); Specific Gravity, Urine 1.015 (1.003-1.022); Urobilinogen, Urine NORM (Normal)
[2025-04-16 23:07] LABS: Color, Urine Yellow (P-Yellow)
[2025-04-16 23:08] LABS: Red Blood Cells, Urine Not Seen /hpf (0-2); White Blood Cells, Urine 50-100 /hpf (0-5); Yeast/Fungi Urine Few /hpf
[2025-04-16 23:15] LABS: U Amphetamine Screen Not Detected; U Barbituate Screen Not Detected; U Benzodiazapine Screen Not Detected; U Buprenorphine Screen Not Detected; U Cannabinoids Screen Not Detected; U Cocaine Screen Not Detected; U Methadone Screen Not Detected; U Methamphetamine Screen Not Detected; U Opiates Screen Not Detected; U Oxycodone Screen Not Detected; U Phencyclidine Screen Not Detected
[2025-04-17] MEDS ORDERED: Insulin Regular 100 UNIT/ML 10ML Vial SC SCH (07:30)
[2025-04-17 08:40] VITALS: BP 193/74
[2025-04-17] MEDS ORDERED: DULoxetine HCL 30 MG Cap DR PO SCH (09:00)
== END 2025-04-17 12:41 | disposition home or self-care (01) ==
LOC: ER 18:53 → EOR 18:54
PROVIDERS: ADMIT Emergency Medicine
DX: F43.25 Adjustment disorder with mixed disturbance of emotions and conduct (principal); E86.0 Dehydration; N39.0 Urinary tract infection, site not specified; E11.40 Type 2 diabetes mellitus with diabetic neuropathy, unspecified; E11.22 Type 2 diabetes mellitus with diabetic chronic kidney disease; N18.30 Chronic kidney disease, stage 3 unspecified; J45.909 Unspecified asthma, uncomplicated; E03.9 Hypothyroidism, unspecified; E78.5 Hyperlipidemia, unspecified; K21.9 Gastro-esophageal reflux disease without esophagitis; Z91.030 Bee allergy status; Z88.5 Allergy status to narcotic agent; Z88.8 Allergy status to other drugs, medicaments and biological substances; Z91.048 Other nonmedicinal substance allergy status; Z79.899 Other long term (current) drug therapy; Z79.4 Long term (current) use of insulin; Z79.890 Hormone replacement therapy
CPT/HCPCS: 80053; 80320; 81001; 81025; 82010; 82947; 85025; 87086; 93005; 93010; 99285-25; A9270; G0378; G0480; J0360; J1815; J7030

== ENCOUNTER 2025-04-18 07:02 | Emergency (ER) | payer MEDICARE, OTHER ==
[~2025-04-18] VITALS: Ht 165.1 cm; Wt 90.7 kg
[2025-04-18] MEDS ORDERED: Insulin Regular 100 Unit/ML 1ML Dose IV ONE ×2 (09:35→11:15)
[2025-04-18] MEDS ORDERED: Insulin Glargine-Yfgn 100 Unit/mL 3 ML SYR SC ONE (09:35)
[2025-04-18 09:52] VITALS: BP 176/81
[2025-04-18 09:52] LABS: BASOPHILS ABSOLUTE AUTO 0.02 K/mm3 (0.00-0.23); BASOPHILS PERCENT AUTO 0 % (0-2); EOSINOPHILS ABSOLUTE AUTO 0.10 K/mm3 (0.00-0.68); EOSINOPHILS PERCENT AUTO 1 % (0-6); Hematocrit 40.9 % (33.0-51.0); Hemoglobin 14.0 g/dL (11.5-16.0); IMMATURE GRAN ABSOLUTE AUTO 0.07 K/mm3 (0.00-0.10); IMMATURE GRAN PERCENT AUTO 1 % (0-1); LYMPHOCYTES ABSOLUTE AUTO 2.19 K/mm3 (0.84-5.20); LYMPHOCYTES PERCENT AUTO 25 % (21-46); MONOCYTES ABSOLUTE AUTO 0.49 K/mm3 (0.16-1.47); MONOCYTES PERCENT AUTO 6 % (4-13); Mean Corpuscular HGB Conc 34.2 g/dL (31.5-36.5); Mean Corpuscular Volume 87 fL (80-100); NEUTROPHILS ABSOLUTE AUTO 6.04 K/mm3 (1.96-9.15); NEUTROPHILS PERCENT AUTO 68 % (41-73); NRBC ABSOLUTE 0.00 K/mm3 (0.00-0.02); NRBC Auto 0.0 /100 WBC (0.0-0.2); Platelet Count 176 K/mm3 (150-400); RDW Coefficient Variation 13.2 % (11.7-14.2); RDW Standard Deviation 41.8 fL (35.1-46.3)
[2025-04-18 10:16] LABS: Alanine Aminotransfer (ALT/SGP 37.0 U/L (12-78); Albumin, Blood 4.1 g/dL (3.4-5.0); Albumin/Globulin Ratio 1.3 (0.8-1.8); Anion Gap 9.0 mmol/L (3-11); Aspartate Aminotrans (AST/SGOT 33.0 U/L (12-37); Bilirubin, Total 0.4 mg/dL (0.1-1.0); Blood Urea Nitrogen 28.0 mg/dL (8-24); CO2, Blood 26.0 mmol/L (21-32); Calcium, Blood 11.0 mg/dL (8.5-10.1); Chloride, Blood 100.0 mmol/L (98-108); Creatinine, Blood 0.96 mg/dL (0.40-1.00); Globulin, Blood 3.2 g/dL (2.2-4.0); Glucose, Blood 488.0 mg/dL (70-99); Potassium, Blood 4.0 mmol/L (3.5-5.5); Sodium, Blood 131.0 mmol/L (136-145); Total Protein, Blood 7.3 g/dL (6.4-8.2)
[2025-04-18] MEDS ORDERED: Ketorolac Tromethamine 30mg Vial IV ONE (10:20)
[2025-04-20] MEDS ORDERED: HUMALOG KW100 UNIT/1 SC (15:30)
== END 2025-04-18 13:11 | disposition home or self-care (01) ==
LOC: ER 07:02
PROVIDERS: Emergency Medicine
DX: E11.65 Type 2 diabetes mellitus with hyperglycemia (principal); J45.909 Unspecified asthma, uncomplicated; E03.9 Hypothyroidism, unspecified; G47.30 Sleep apnea, unspecified; E78.00 Pure hypercholesterolemia, unspecified; K21.9 Gastro-esophageal reflux disease without esophagitis; Z79.4 Long term (current) use of insulin; Z79.890 Hormone replacement therapy; Z79.85 Long-term (current) use of injectable non-insulin antidiabetic drugs; Z79.899 Other long term (current) drug therapy
CPT/HCPCS: 80053; 82010; 82800; 82947; 85025; 96361; 96374; 99285-25; J1815; J1885; J7120

== ENCOUNTER 2025-04-19 07:18 | Observation (INO) | payer MEDICARE, OTHER ==
[~2025-04-19] VITALS: Ht 172.7 cm; Wt 118.9 kg
[2025-04-19 08:59] LABS: BASOPHILS ABSOLUTE AUTO 0.02 K/mm3 (0.00-0.23); BASOPHILS PERCENT AUTO 0 % (0-2); EOSINOPHILS ABSOLUTE AUTO 0.14 K/mm3 (0.00-0.68); EOSINOPHILS PERCENT AUTO 2 % (0-6); Hematocrit 44.2 % (33.0-51.0); Hemoglobin 15.0 g/dL (11.5-16.0); IMMATURE GRAN ABSOLUTE AUTO 0.06 K/mm3 (0.00-0.10); IMMATURE GRAN PERCENT AUTO 1 % (0-1); LYMPHOCYTES ABSOLUTE AUTO 2.37 K/mm3 (0.84-5.20); LYMPHOCYTES PERCENT AUTO 30 % (21-46); MONOCYTES ABSOLUTE AUTO 0.47 K/mm3 (0.16-1.47); MONOCYTES PERCENT AUTO 6 % (4-13); Mean Corpuscular HGB Conc 33.9 g/dL (31.5-36.5); Mean Corpuscular Volume 88 fL (80-100); NEUTROPHILS ABSOLUTE AUTO 4.80 K/mm3 (1.96-9.15); NEUTROPHILS PERCENT AUTO 61 % (41-73); NRBC ABSOLUTE 0.00 K/mm3 (0.00-0.02); NRBC Auto 0.0 /100 WBC (0.0-0.2); Platelet Count 177 K/mm3 (150-400); RDW Coefficient Variation 13.2 % (11.7-14.2); RDW Standard Deviation 42.8 fL (35.1-46.3)
[2025-04-19 09:23] LABS: Ethanol (Alcohol), Blood, Med <3 mg/dL; Salicylate <1.7 mg/dL (2.8-20.0)
[2025-04-19 09:27] LABS: Acetaminophen, Random <2.0 ug/mL (10.0-30.0); Alanine Aminotransfer (ALT/SGP 39 U/L (12-78); Albumin, Blood 4.1 g/dL (3.4-5.0); Albumin/Globulin Ratio 1.3 (0.8-1.8); Anion Gap 8 mmol/L (3-11); Aspartate Aminotrans (AST/SGOT 34 U/L (12-37); Bilirubin, Total 0.5 mg/dL (0.1-1.0); Blood Urea Nitrogen 29 mg/dL (8-24); CO2, Blood 27 mmol/L (21-32); Calcium, Blood 10.8 mg/dL (8.5-10.1); Chloride, Blood 104 mmol/L (98-108); Creatinine, Blood 0.95 mg/dL (0.40-1.00); Globulin, Blood 3.2 g/dL (2.2-4.0); Glucose, Blood 233 mg/dL (70-99); Potassium, Blood 3.5 mmol/L (3.5-5.5); Sodium, Blood 135 mmol/L (136-145); Total Protein, Blood 7.3 g/dL (6.4-8.2)
[2025-04-19 10:32] LABS: Source, Urine Clean Catch
[2025-04-19 10:38] LABS: Bilirubin, Urine Neg (Neg); Color, Urine Yellow (P-Yellow); Glucose Qualitative, Urine 4+ (Neg); Ketones, Urine Neg (Neg); Leukocyte Esterase, Urine 2+ (Neg); Protein, Urine 2+ (Neg); Specific Gravity, Urine 1.025 (1.003-1.022); Urobilinogen, Urine NORM (Normal)
[2025-04-19 10:56] LABS: Yeast/Fungi Urine Many /hpf
[2025-04-19 10:57] LABS: Red Blood Cells, Urine 0-2 /hpf (0-2)
[2025-04-19 11:06] LABS: U Amphetamine Screen Not Detected; U Barbituate Screen Not Detected; U Benzodiazapine Screen Not Detected; U Buprenorphine Screen Not Detected; U Cannabinoids Screen Not Detected; U Cocaine Screen Not Detected; U Methadone Screen Not Detected; U Methamphetamine Screen Not Detected; U Opiates Screen Not Detected; U Oxycodone Screen Not Detected; U Phencyclidine Screen Not Detected
[2025-04-19 11:18] LABS: pH Blood Venous 7.33 (7.34-7.37)
[2025-04-19] MEDS ORDERED: DULoxetine HCL 30 MG Cap DR PO SCH (16:00)
[2025-04-19] MEDS ORDERED: Enoxaparin 40 MG/0.4 ML SYR SC SCH (17:00)
[2025-04-19] MEDS ORDERED: Insulin Human Lispro 100 Units/ML 3ML Syringe SC SCH (17:30)
[2025-04-19] MEDS ORDERED: CefTRIAXone Sodium 1,000 MG in NS 100 ML IV SCH (18:30)
[2025-04-19] MEDS ORDERED: Labetalol HCL 5 MG/ML 4ML Injection (Single Dose) IV PRN (20:45)
[2025-04-19] MEDS ORDERED: Insulin Glargine-Yfgn 100 Unit/mL 3 ML SYR SC SCH (21:00)
[2025-04-19 22:54] VITALS: BP 162/66
[2025-04-20 03:34] VITALS: BP 149/66
--- NOTE | 2025-04-20 04:49 | NUR ---
SHIFT SUMMARY; AFTER ADMIT, PATIENT SLEPT IN LONG INTERVALS. UP TO BSC/FWW AND 2 PERSONS. SITTER 1:1 ALL NIGHT. TELE SR @70. CBG AT [phone]. WILL RECHECK CBG AROUND 0400.
[2025-04-20 05:17] LABS: BASOPHILS ABSOLUTE AUTO 0.02 K/mm3 (0.00-0.23); BASOPHILS PERCENT AUTO 0 % (0-2); EOSINOPHILS ABSOLUTE AUTO 0.14 K/mm3 (0.00-0.68); EOSINOPHILS PERCENT AUTO 2 % (0-6); Hematocrit 40.0 % (33.0-51.0); Hemoglobin 13.6 g/dL (11.5-16.0); IMMATURE GRAN ABSOLUTE AUTO 0.03 K/mm3 (0.00-0.10); IMMATURE GRAN PERCENT AUTO 1 % (0-1); LYMPHOCYTES ABSOLUTE AUTO 2.11 K/mm3 (0.84-5.20); LYMPHOCYTES PERCENT AUTO 33 % (21-46); MONOCYTES ABSOLUTE AUTO 0.51 K/mm3 (0.16-1.47); MONOCYTES PERCENT AUTO 8 % (4-13); Mean Corpuscular HGB Conc 34.0 g/dL (31.5-36.5); Mean Corpuscular Volume 88 fL (80-100); NEUTROPHILS ABSOLUTE AUTO 3.67 K/mm3 (1.96-9.15); NEUTROPHILS PERCENT AUTO 57 % (41-73); NRBC ABSOLUTE 0.00 K/mm3 (0.00-0.02); NRBC Auto 0.0 /100 WBC (0.0-0.2); Platelet Count 167 K/mm3 (150-400); RDW Coefficient Variation 13.4 % (11.7-14.2); RDW Standard Deviation 43.5 fL (35.1-46.3)
[2025-04-20 07:23] VITALS: BP 146/61
[2025-04-20] MEDS ORDERED: Insulin Human Lispro 100 Units/ML 3ML Syringe SC SCH (07:30)
[2025-04-20 07:42] LABS: Alanine Aminotransfer (ALT/SGP 44.0 U/L (12-78); Albumin, Blood 3.3 g/dL (3.4-5.0); Albumin/Globulin Ratio 1.2 (0.8-1.8); Anion Gap 6.0 mmol/L (3-11); Aspartate Aminotrans (AST/SGOT 64.0 U/L (12-37); Bilirubin, Total 0.4 mg/dL (0.1-1.0); Blood Urea Nitrogen 25.0 mg/dL (8-24); CO2, Blood 29.0 mmol/L (21-32); Calcium, Blood 10.5 mg/dL (8.5-10.1); Chloride, Blood 108.0 mmol/L (98-108); Creatinine, Blood 0.94 mg/dL (0.40-1.00); Globulin, Blood 2.7 g/dL (2.2-4.0); Glucose, Blood 131.0 mg/dL (70-99); Potassium, Blood 3.3 mmol/L (3.5-5.5); Sodium, Blood 140.0 mmol/L (136-145); Total Protein, Blood 6.0 g/dL (6.4-8.2)
[2025-04-20] MEDS ORDERED: Potassium Chloride 10 Meq Tablet SA PO ONE (08:55)
[2025-04-20] MEDS ORDERED: Albuterol HFA200 ACT/6.7 GM INH INH PRN (09:05)
[2025-04-20 14:00] VITALS: BP 135/56
[2025-04-20] MEDS ORDERED: Lidocaine 4% 1 Patch TOP SCH (14:00)
[2025-04-20 15:03] VITALS: BP 152/74
[2025-04-20] MEDS ORDERED: LISI20 PO (15:30)
[2025-04-20] MEDS ORDERED: HUMALOG KW100 UNIT/1 SC ×2 (15:30)
--- NOTE | 2025-04-20 16:31 | NUR ---
DISCHARGE NOTE PT DISCHARGE TO [facility], PICKED UP BY A TAXI. TAKEN TO THE TAXI BY HER PERSONAL WC. PERSONAL BELONGINGS PUT INTO THE TAXI. MEDICATIONS FAXED TO [facility] [address]. DISCHARGE EDUCATION AND INFORMATION PROVIDED TO THE PT, ALSO REVIEWED WITH THE PT. IV REMOVED. TELE RETURNED.
== END 2025-04-20 16:25 | disposition home or self-care (01) ==
LOC: ER 07:18 → MEDS 07:19 → EOR 07:19 → ER 07:19 → EOR 07:19 → MEDS 07:19 → ER 16:40 → MEDS 16:40 → EOR 16:40 → MEDS 16:40
PROVIDERS: Student in an Organized Health Care Education/Training Program; ADMIT Hospitalist
DX: I16.0 Hypertensive urgency (principal); N39.0 Urinary tract infection, site not specified; I12.9 Hypertensive chronic kidney disease with stage 1 through stage 4 chronic kidney disease, or unspecified chronic kidney disease; E11.22 Type 2 diabetes mellitus with diabetic chronic kidney disease; N18.30 Chronic kidney disease, stage 3 unspecified; R45.851 Suicidal ideations; K21.9 Gastro-esophageal reflux disease without esophagitis; E03.9 Hypothyroidism, unspecified; G47.33 Obstructive sleep apnea (adult) (pediatric); E11.40 Type 2 diabetes mellitus with diabetic neuropathy, unspecified; M17.0 Bilateral primary osteoarthritis of knee; E78.5 Hyperlipidemia, unspecified; N32.81 Overactive bladder; J45.909 Unspecified asthma, uncomplicated; E87.6 Hypokalemia; M16.12 Unilateral primary osteoarthritis, left hip; F43.23 Adjustment disorder with mixed anxiety and depressed mood; Z59.02 Unsheltered homelessness; Z91.148 Patient's other noncompliance with medication regimen for other reason; Z79.4 Long term (current) use of insulin; Z79.890 Hormone replacement therapy; Z79.899 Other long term (current) drug therapy; Z88.5 Allergy status to narcotic agent; Z88.8 Allergy status to other drugs, medicaments and biological substances; Z91.038 Other insect allergy status; Z91.048 Other nonmedicinal substance allergy status
CPT/HCPCS: 36415; 80053; 80320; 81001; 81025; 82803; 82947; 83036; 85025; 87086; 93005; 93010; 94760; 96372; 96374; 99285-25; A9270; G0378; G0480; J0696; J1650; J1815